=== PATIENT | male | born 1960 | race Caucasian/White ===

== ENCOUNTER 2020-11-20 16:10 | Emergency (ER) | payer OTHER ==
[2020-11-20 16:28] VITALS: BMI 27.1
[2020-11-20] MEDS ORDERED: SODIUM CHLORIDE 500 ML IV STA (17:52)
[2020-11-20 23:20] LABS: EPI CELLS 3 /uL (0-25.1); HYALINE CASTS 1 /uL (0-3.1); URINE APPEARANCE CLEAR; URINE BACTERIA 11 /uL (0-1359); URINE BILIRUBIN NEGATIVE (NEGATIVE); URINE COLOR YELLOW; URINE GLUCOSE (UA) NEGATIVE (NEGATIVE); URINE KETONE NEGATIVE (NEGATIVE); URINE LEUK ESTERASE NEGATIVE (NEGATIVE); URINE NITRITE NEGATIVE (NEGATIVE); URINE PROTEIN 1+ (NEGATIVE); URINE RBC 8 /uL (0-23.9); URINE UROBILINOGEN 0.2 mg/dL (0.2-1.0); URINE WBC 2 /uL (0-25.8)
[2020-11-21 06:43] VITALS: TEMP 98.7
[2020-11-21 09:57] VITALS: BP 108/68; PULSE 95
== END 2020-11-21 11:45 | disposition home or self-care (01) ==
LOC: JER 16:10
PROC: 3E0337Z Introduction of Electrolytic and Water Balance Substance into Peripheral Vein, Percutaneous Approach (ICD-10-PCS; principal; 2020-11-20)
DX: K59.00 Constipation, unspecified (principal)
CPT/HCPCS: 74018-TC-FY; 81003; 99284-25

== ENCOUNTER 2021-07-16 23:17 | Inpatient (IN) | payer OTHER ==
[2021-07-16] MEDS ORDERED: DEXAMETHASONE SOD PHOSPHATE 10 MG/1 ML VIAL IVPUSH ONE (23:32)
[2021-07-16] MEDS ORDERED: DEXAMETHASONE SOD PHOSPHATE 10 MG/1 ML VIAL ONE (23:36)
[2021-07-16 23:47] LABS: BASO % 1.1 % (0-2.0); EOS % 1.9 % (0-4.5); HEMATOCRIT 29.7 % (35.4-49); LYMPH % 7.4 % (8-40); MCH 27.6 pg (25.7-33.7); MCHC 30.3 g/dl (32.0-35.9); MEAN CELL VOLUME 91.1 fl (80-96); MEAN PLT VOLUME 7.6 fl (7.5-11.1); MONO % 9.6 % (3.8-10.2); PLATELET COUNT 221 10^3/uL (134-434); RBC 3.26 M/mm3 (4.00-5.60); RDW 14.9 % (11.9-15.9); VENOUS BASE EXCESS 8.6 mmol/L (-2-2); VENOUS O2 SATURATION 65.1 % (70-80); VENOUS PCO2 83.3 mmHg (38-52); VENOUS PH 7.272 (7.310-7.410); WHITE BLOOD COUNT 3.1 K/mm3 (4.0-10.0)
[2021-07-16 23:55] LABS: INR 0.94 (0.83-1.09); PROTHROMBIN TIME (PATIENT) 10.8 SEC (9.7-13.0)
[2021-07-16 23:58] LABS: ACTIVATED PTT 36.1 SECONDS (25.2-36.5)
[2021-07-17 00:11] LABS: ALBUMIN 3.4 g/dl (3.4-5.0); BLOOD UREA NITROGEN 16.2 mg/dL (7-18)
[2021-07-17 00:14] LABS: BILIRUBIN,DIRECT 0.1 mg/dL (0.0-0.2); CREATININE 0.3 mg/dL (0.55-1.3)
[2021-07-17 00:15] LABS: TOT PROT 7.2 g/dl (6.4-8.2)
[2021-07-17 00:34] LABS: BILIRUBIN,TOTAL 0.2 mg/dL (0.2-1)
[2021-07-17 02:52] LABS: ARTERIAL BLD GAS O2 SATURATION 99.3 % (95-98); ARTERIAL BLOOD GAS BASE EXCESS 21.6 mmol/L (-2-2); ARTERIAL BLOOD GAS PO2 241.3 mmHg (80-100); ARTERIAL BLOOD GAS pH 7.207 (7.350-7.450)
[2021-07-17 02:56] LABS: ALLENS TEST POSITIVE
[2021-07-17] MEDS ORDERED: ACETAMINOPHEN 650 MG/20.3 ML ORAL SOLUTION (CUPS) PO PRN (04:36)
[2021-07-17] MEDS ORDERED: POLYETHYLENE GLYCOL (HEALTHYLAX) 3350 17 GM PACKET PO PRN (04:36)
[2021-07-17] MEDS ORDERED: ALBUTEROL SO4 HFA INHALER IH PRN (04:36)
[2021-07-17] MEDS ORDERED: LACTATED RINGERS SOLUTION 1000 ML INFUS.BAG IV ONE ×3 (05:03→11:44)
[2021-07-17 06:50] LABS: ARTERIAL BLD GAS O2 SATURATION 99.5 % (95-98); ARTERIAL BLOOD GAS PO2 298.9 mmHg (80-100)
[2021-07-17 06:51] LABS: ALLENS TEST POSITIVE; VENT MODE S/T; VENT RATE 18
[2021-07-17 06:53] LABS: ARTERIAL BLOOD GAS pH 7.165 (7.350-7.450)
[2021-07-17] MEDS ORDERED: RAPID SEQUENCE INTUBATION KIT NR ONE (07:02)
[2021-07-17 08:20] LABS: ARTERIAL BLOOD GAS PO2 101.1 mmHg (80-100); ARTERIAL BLOOD GAS pH 7.201 (7.350-7.450)
[2021-07-17 08:21] LABS: ARTERIAL BLD GAS O2 SATURATION 95.4 % (95-98); ARTERIAL BLOOD GAS BASE EXCESS 17.8 mmol/L (-2-2)
[2021-07-17 09:01] LABS: CALCIUM 9.4 mg/dL (8.5-10.1)
[2021-07-17 09:02] LABS: CREATININE 0.2 mg/dL (0.55-1.3); MAGNESIUM 2.4 mg/dL (1.8-2.4)
[2021-07-17] MEDS ORDERED: guaiFENesin 200 MG/10 ML 10 ML UNIT-DOSE CUPS PO PRN (09:05)
[2021-07-17] MEDS ORDERED: ETOMIDATE 20 MG/10 ML AMPUL IVPUSH ONE (09:23)
[2021-07-17] MEDS ORDERED: MIDAZOLAM IN 0.9 % SOD.CHLORID 1 MG/1 ML PLAST..BAG ONE (09:41)
[2021-07-17] MEDS: MIDAZOLAM IN 0.9 % SOD.CHLORID 100 MG/100 ML PLAST..BAG IVPB SCH ×2 (09:43→21:46)
[2021-07-17] MEDS ORDERED: FUROSEMIDE 20 MG TABLET (FP) PO SCH (10:00)
[2021-07-17] MEDS ORDERED: FENTANYL NS IVPB 500 MCG/100 ML BAG IVPB ONE (10:33)
[2021-07-17] MEDS: FENTANYL NS IVPB 500 MCG/100 ML BAG IVPB SCH ×2 (10:35→18:00)
[2021-07-17] MEDS: FUROSEMIDE 40 MG/4 ML INJECTABLE VIAL IVPUSH SCH (12:28)
[2021-07-17] MEDS ORDERED: NOREPINEPHRINE BITARTRATE 16,000 MCG in SODIUM CHLORIDE 484 ML IV SCH (12:30)
[2021-07-17] MEDS: EPINEPHrine 1:1,000 4,000 MCG in DEXTROSE 5%-WATER - 996 ML IV SCH (14:00)
[2021-07-17] MEDS ORDERED: DEXAMETHASONE SOD PHOSPHATE 10 MG/1 ML VIAL IM SCH (14:00)
[2021-07-17] MEDS ORDERED: VASOPRESSIN 40 UNITS/100 ML BAG IV SCH ×3 (14:15→15:15)
[2021-07-17] MEDS ORDERED: EPINEPHrine 1:1,000 4,000 MCG in DEXTROSE 5%-WATER - 996 ML IV SCH ×2 (14:15→14:59)
[2021-07-17] MEDS: NOREPINEPHRINE BITARTRATE 16,000 MCG in SODIUM CHLORIDE 484 ML IV SCH ×2 (15:00→21:47)
[2021-07-17 15:15] LABS: HEMATOCRIT 28.7 % (35.4-49); HEMOGLOBIN 8.4 GM/dL (11.7-16.9); MCHC 29.2 g/dl (32.0-35.9); MEAN CELL VOLUME 92.4 fl (80-96); MEAN PLT VOLUME 8.5 fl (7.5-11.1); PLATELET COUNT 305 10^3/uL (134-434); RBC 3.11 M/mm3 (4.00-5.60); RDW 15.2 % (11.9-15.9); WHITE BLOOD COUNT 10.2 K/mm3 (4.0-10.0)
[2021-07-17 15:33] LABS: BLOOD UREA NITROGEN 18.1 mg/dL (7-18); CALCIUM 9.6 mg/dL (8.5-10.1)
[2021-07-17 15:36] LABS: CREATININE 0.6 mg/dL (0.55-1.3)
[2021-07-17 15:38] LABS: BILIRUBIN,TOTAL 0.3 mg/dL (0.2-1); TOT PROT 6.6 g/dl (6.4-8.2)
[2021-07-17 15:41] LABS: VENOUS O2 SATURATION 42.5 % (70-80); VENOUS PCO2 48.7 mmHg (38-52); VENOUS PH 7.46 (7.310-7.410)
[2021-07-17 16:05] LABS: ANISOCYTOSIS 1+; MACROCYTOSIS 1+; OVALOCYTE 1+; PLATELET ESTIMATE NORMAL
[2021-07-17 16:05] LABS: ARTERIAL BLD GAS O2 SATURATION 87.8 % (95-98); ARTERIAL BLOOD GAS PO2 48.4 mmHg (80-100); ARTERIAL BLOOD GAS pH 7.514 (7.350-7.450)
[2021-07-17 16:11] LABS: ALLENS TEST POSITIVE
[2021-07-17 16:12] LABS: VENT MODE A/C; VENT RATE 20
[2021-07-17] MEDS ORDERED: FLUDROCORTISONE ACETATE 0.1 MG TABLET (FP) PO SCH (18:45)
[2021-07-17] MEDS ORDERED: fentaNYL CITRATE 250 MCG/5 ML VIAL ONE (18:57)
[2021-07-17] MEDS ORDERED: fentaNYL CITRATE 250 MCG/5 ML VIAL IVPUSH SCH (19:45)
[2021-07-17] MEDS: MELATONIN 5 MG TABLETS PO SCH (21:47)
[2021-07-17] MEDS: ASCORBIC ACID 500 MG TABLET (FP) PO SCH ×2 (21:47→21:59)
[2021-07-17] MEDS: APIXABAN 5 MG TABLET PO SCH ×2 (21:48→21:58)
[2021-07-17] MEDS: HYDROCORTISONE SOD SUCCINATE 100 MG/2 ML VIAL IVPUSH SCH (21:52)
[2021-07-17] MEDS: ISONIAZID 300 MG TABLET (FP) PO SCH (21:58)
[2021-07-17] MEDS: LEVOTHYROXINE NA 125 MCG TABLET (FP) PO SCH (21:58)
[2021-07-17] MEDS: GEMFIBROZIL 600 MG TABLET (FP) PO SCH (21:58)
[2021-07-17] MEDS: ZINC SULFATE 220 MG CAPSULE (FP) PO SCH (21:58)
[2021-07-17] MEDS: FERROUS SO4 325 MG TABLET (FP) PO SCH (21:58)
[2021-07-17] MEDS: ESCITALOPRAM OXALATE 10 MG TABLET PO SCH (21:58)
[2021-07-17] MEDS: CALCIUM 500MG/VIT-D 200 UNITS COMBO TABLET (FP) PO SCH (21:58)
[2021-07-17] MEDS: ATOVAQUONE 750 MG/5 ML (UNIT-DOSE PACKAGING) PO SCH (21:59)
[2021-07-17] MEDS: CHOLECALCIFEROL (VIT D3) 1,000 UNIT (25 MCG) TABLET PO SCH (21:59)
[2021-07-17] MEDS: MYCOPHENOLATE MOFETIL 500 MG TABLET PO SCH (21:59)
[2021-07-17] MEDS: TENOFOVIR DISOPROXIL FUMARATE 300 MG TABLET PO SCH (21:59)
[2021-07-17] MEDS ORDERED: PT OWN MED DRAWER 7, Y5N ONE (22:25)
[2021-07-18] MEDS: HYDROCORTISONE SOD SUCCINATE 100 MG/2 ML VIAL IVPUSH SCH ×2 (02:43→08:19)
[2021-07-18] MEDS: FENTANYL NS IVPB 500 MCG/100 ML BAG IVPB SCH (02:58)
[2021-07-18] MEDS: EPINEPHrine 1:1,000 4,000 MCG in DEXTROSE 5%-WATER - 996 ML IV SCH (03:00)
[2021-07-18] MEDS: NOREPINEPHRINE BITARTRATE 16,000 MCG in SODIUM CHLORIDE 484 ML IV SCH ×2 (04:00→17:04)
[2021-07-18] MEDS: GEMFIBROZIL 600 MG TABLET (FP) PO SCH ×2 (06:48→16:21)
[2021-07-18] MEDS: LEVOTHYROXINE NA 125 MCG TABLET (FP) PO SCH (06:48)
[2021-07-18 07:20] LABS: ARTERIAL BLD GAS O2 SATURATION 99.8 % (95-98); ARTERIAL BLOOD GAS BASE EXCESS 12.8 mmol/L (-2-2); ARTERIAL BLOOD GAS PO2 284.9 mmHg (80-100); ARTERIAL BLOOD GAS pH 7.629 (7.350-7.450)
[2021-07-18 07:22] LABS: BASO % 0.2 % (0-2.0); HEMATOCRIT 21.7 % (35.4-49); LYMPH % 5.1 % (8-40); MCH 27.2 pg (25.7-33.7); MCHC 31.6 g/dl (32.0-35.9); MEAN CELL VOLUME 86.2 fl (80-96); MEAN PLT VOLUME 8.3 fl (7.5-11.1); MONO % 5.6 % (3.8-10.2); NEUT % 89.1 % (42.8-82.8); PLATELET COUNT 241 10^3/uL (134-434); RBC 2.52 M/mm3 (4.00-5.60); RDW 14.3 % (11.9-15.9); WHITE BLOOD COUNT 9.8 K/mm3 (4.0-10.0)
[2021-07-18 07:24] LABS: HEMOGLOBIN 6.9 GM/dL (11.7-16.9)
[2021-07-18 07:39] LABS: VENT MODE A/C; VENT RATE 20
[2021-07-18] MEDS ORDERED: PT OWN MED DRAWER 7, Y5N ONE ×4 (08:02→22:48)
[2021-07-18] MEDS: ATOVAQUONE 750 MG/5 ML (UNIT-DOSE PACKAGING) PO SCH (08:19)
[2021-07-18 08:32] LABS: CO2 31 mmol/L (21-32); GLUCOSE,RANDOM 195 mg/dL (74-106); MAGNESIUM 1.5 mg/dL (1.8-2.4)
[2021-07-18 08:33] LABS: BLOOD UREA NITROGEN 20.5 mg/dL (7-18)
[2021-07-18 08:35] LABS: CREATININE 0.5 mg/dL (0.55-1.3); SGOT/AST 35 U/L (15-37)
[2021-07-18 08:36] LABS: SGPT/ALT 23 U/L (13-61)
[2021-07-18 08:37] LABS: BILIRUBIN,TOTAL 0.2 mg/dL (0.2-1); TOT PROT 5.1 g/dl (6.4-8.2)
[2021-07-18 08:38] LABS: ALK PHOS 55 U/L (45-117)
[2021-07-18 08:54] LABS: CHLORIDE 94 mmol/L (98-107); SODIUM 132 mmol/L (136-145)
[2021-07-18 08:57] LABS: ALBUMIN 2.3 g/dl (3.4-5.0); ANION GAP 6 MMOL/L (8-16); CALCIUM 7.8 mg/dL (8.5-10.1)
[2021-07-18] MEDS ORDERED: SODIUM PHOSPHATE - 0 MM in SODIUM CHLORIDE 250 ML IVPB ONE (09:03)
[2021-07-18] MEDS: ESCITALOPRAM OXALATE 10 MG TABLET PO SCH (09:28)
[2021-07-18] MEDS: APIXABAN 5 MG TABLET PO SCH ×2 (09:28→22:58)
[2021-07-18] MEDS: CHOLECALCIFEROL (VIT D3) 1,000 UNIT (25 MCG) TABLET PO SCH (09:31)
[2021-07-18] MEDS: FUROSEMIDE 40 MG/4 ML INJECTABLE VIAL IVPUSH SCH (09:31)
[2021-07-18] MEDS: ZINC SULFATE 220 MG CAPSULE (FP) PO SCH (09:31)
[2021-07-18] MEDS: FERROUS SO4 325 MG TABLET (FP) PO SCH (09:31)
[2021-07-18] MEDS: CALCIUM 500MG/VIT-D 200 UNITS COMBO TABLET (FP) PO SCH (09:32)
[2021-07-18] MEDS: ISONIAZID 300 MG TABLET (FP) PO SCH (09:32)
[2021-07-18] MEDS: TENOFOVIR DISOPROXIL FUMARATE 300 MG TABLET PO SCH (09:32)
[2021-07-18] MEDS: MYCOPHENOLATE MOFETIL 500 MG TABLET PO SCH ×3 (09:32→23:04)
[2021-07-18] MEDS: ASCORBIC ACID 500 MG TABLET (FP) PO SCH ×2 (09:32→22:58)
[2021-07-18] MEDS ORDERED: LACTATED RINGERS SOLUTION 1000 ML INFUS.BAG IV ONE (09:41)
[2021-07-18] MEDS ORDERED: SODIUM PHOSPHATE - 30 MM in SODIUM CHLORIDE 250 ML IVPB ONE (10:00)
[2021-07-18 11:40] LABS: ALLENS TEST POSITIVE; ARTERIAL BLD GAS O2 SATURATION 99.2 % (95-98); ARTERIAL BLOOD GAS BASE EXCESS 9.4 mmol/L (-2-2); ARTERIAL BLOOD GAS PO2 148.2 mmHg (80-100); ARTERIAL BLOOD GAS pH 7.561 (7.350-7.450)
[2021-07-18 11:41] LABS: VENT MODE A/C; VENT RATE 16
[2021-07-18] MEDS ORDERED: RAPID SEQUENCE INTUBATION KIT NR ONE (12:17)
[2021-07-18] MEDS: MIDAZOLAM IN 0.9 % SOD.CHLORID 100 MG/100 ML PLAST..BAG IVPB SCH ×2 (14:06→23:00)
[2021-07-18 16:10] LABS: ARTERIAL BLD GAS O2 SATURATION 99.2 % (95-98); ARTERIAL BLOOD GAS BASE EXCESS 7.5 mmol/L (-2-2); ARTERIAL BLOOD GAS pH 7.519 (7.350-7.450)
[2021-07-18 16:14] LABS: ALLENS TEST POSITIVE
[2021-07-18 16:15] LABS: VENT MODE A/C; VENT RATE 20
[2021-07-18] MEDS ORDERED: FENTANYL NS IVPB 500 MCG/100 ML BAG IVPB ONE (17:55)
[2021-07-18] MEDS ORDERED: SODIUM CHLORIDE IVPB SCH ×2 (18:00→22:43)
[2021-07-18] MEDS ORDERED: FENTANYL IVPB SCH ×2 (18:00→22:43)
[2021-07-18 19:02] LABS: BASO % 0.2 % (0-2.0); EOS % 0.1 % (0-4.5); HEMATOCRIT 29.1 % (35.4-49); HEMOGLOBIN 9.6 GM/dL (11.7-16.9); LYMPH % 5.3 % (8-40); MCH 28.3 pg (25.7-33.7); MEAN CELL VOLUME 85.9 fl (80-96); MONO % 5.2 % (3.8-10.2); NEUT % 89.2 % (42.8-82.8); PLATELET COUNT 200 10^3/uL (134-434); RBC 3.39 M/mm3 (4.00-5.60); RDW 15.5 % (11.9-15.9); WHITE BLOOD COUNT 11.9 K/mm3 (4.0-10.0)
[2021-07-18 19:13] LABS: INR 1.24 (0.83-1.09); PROTHROMBIN TIME (PATIENT) 14.3 SEC (9.7-13.0)
[2021-07-18 19:23] LABS: CALCIUM 8.3 mg/dL (8.5-10.1)
[2021-07-18 19:24] LABS: ALBUMIN 2.5 g/dl (3.4-5.0); BLOOD UREA NITROGEN 22.5 mg/dL (7-18); MAGNESIUM 1.8 mg/dL (1.8-2.4)
[2021-07-18 19:27] LABS: CREATININE 0.4 mg/dL (0.55-1.3); PHOSPHOROUS 4.4 mg/dL (2.5-4.9)
[2021-07-18 19:29] LABS: BILIRUBIN,TOTAL 0.8 mg/dL (0.2-1); TOT PROT 5.4 g/dl (6.4-8.2)
[2021-07-18] MEDS: MELATONIN 5 MG TABLETS PO SCH (22:58)
[2021-07-19] MEDS: FENTANYL NS IVPB 500 MCG/100 ML BAG IVPB SCH ×5 (02:11→20:10)
[2021-07-19 06:34] LABS: ARTERIAL BLD GAS O2 SATURATION 90.8 % (95-98); ARTERIAL BLOOD GAS BASE EXCESS 10.9 mmol/L (-2-2); ARTERIAL BLOOD GAS pH 7.498 (7.350-7.450)
[2021-07-19 06:52] LABS: VENT MODE A/C; VENT RATE 16
[2021-07-19] MEDS: LEVOTHYROXINE NA 125 MCG TABLET (FP) PO SCH (06:54)
[2021-07-19] MEDS: GEMFIBROZIL 600 MG TABLET (FP) PO SCH ×2 (06:54→17:53)
[2021-07-19 07:06] LABS: HEMATOCRIT 30.4 % (35.4-49); HEMOGLOBIN 9.8 GM/dL (11.7-16.9); MCH 27.8 pg (25.7-33.7); MCHC 32.4 g/dl (32.0-35.9); MEAN CELL VOLUME 85.9 fl (80-96); MEAN PLT VOLUME 8.9 fl (7.5-11.1); PLATELET COUNT 216 10^3/uL (134-434); RBC 3.53 M/mm3 (4.00-5.60); RDW 15.7 % (11.9-15.9)
[2021-07-19 07:17] LABS: BLOOD UREA NITROGEN 28.7 mg/dL (7-18)
[2021-07-19 07:18] LABS: ALBUMIN 2.3 g/dl (3.4-5.0); MAGNESIUM 1.4 mg/dL (1.8-2.4)
[2021-07-19 07:20] LABS: PHOSPHOROUS 3.6 mg/dL (2.5-4.9)
[2021-07-19 07:21] LABS: CREATININE 0.4 mg/dL (0.55-1.3)
[2021-07-19 07:22] LABS: BILIRUBIN,TOTAL 0.4 mg/dL (0.2-1); TOT PROT 5.2 g/dl (6.4-8.2)
[2021-07-19 08:37] LABS: ANISOCYTOSIS 1+; MACROCYTOSIS 0; OVALOCYTE 1+; PLATELET ESTIMATE NORMAL; TOXIC GRANULATION 2+
[2021-07-19] MEDS: ATOVAQUONE 750 MG/5 ML (UNIT-DOSE PACKAGING) PO SCH (08:55)
[2021-07-19] MEDS: MIDAZOLAM IN 0.9 % SOD.CHLORID 100 MG/100 ML PLAST..BAG IVPB SCH ×3 (09:04→17:53)
[2021-07-19] MEDS: TENOFOVIR DISOPROXIL FUMARATE 300 MG TABLET PO SCH (10:55)
[2021-07-19] MEDS: ISONIAZID 300 MG TABLET (FP) PO SCH (10:55)
[2021-07-19] MEDS: CALCIUM 500MG/VIT-D 200 UNITS COMBO TABLET (FP) PO SCH (10:55)
[2021-07-19] MEDS: MYCOPHENOLATE MOFETIL 500 MG TABLET PO SCH ×2 (10:55→22:59)
[2021-07-19] MEDS: ZINC SULFATE 220 MG CAPSULE (FP) PO SCH (11:37)
[2021-07-19] MEDS: ASCORBIC ACID 500 MG TABLET (FP) PO SCH ×2 (11:37→23:57)
[2021-07-19] MEDS: APIXABAN 5 MG TABLET PO SCH ×2 (11:37→23:00)
[2021-07-19] MEDS: ESCITALOPRAM OXALATE 10 MG TABLET PO SCH (11:37)
[2021-07-19] MEDS: FERROUS SO4 325 MG TABLET (FP) PO SCH (11:37)
[2021-07-19] MEDS: CHOLECALCIFEROL (VIT D3) 1,000 UNIT (25 MCG) TABLET PO SCH (11:37)
[2021-07-19 11:53] LABS: ARTERIAL BLD GAS O2 SATURATION 95.2 % (95-98); ARTERIAL BLOOD GAS BASE EXCESS 5.4 mmol/L (-2-2); ARTERIAL BLOOD GAS PO2 70.5 mmHg (80-100); ARTERIAL BLOOD GAS pH 7.477 (7.350-7.450)
[2021-07-19 11:55] LABS: VENT MODE AC
[2021-07-19 11:56] LABS: VENT RATE 16
[2021-07-19] MEDS ORDERED: DEXAMETHASONE SOD PHOSPHATE 10 MG/1 ML VIAL IVPUSH ONE (13:44)
[2021-07-19] MEDS ORDERED: PROPOFOL 1,000,000 MCG/100 ML VIAL IVPB SCH (14:30)
[2021-07-19] MEDS ORDERED: DEXTROSE 5%-WATER - 50 ML IVPB ONE ×2 (15:35→17:55)
[2021-07-19] MEDS ORDERED: PIPERACILLIN/TAZOBACTAM 3.375 GM VIAL IVPB ONE ×2 (15:35→17:55)
[2021-07-19] MEDS: PIPERACILLIN/TAZOB 3.375 GM 3.375 GM in DEXTROSE 5%-WATER - 50 ML IVPB SCH ×2 (16:00→17:53)
[2021-07-19] MEDS: NOREPINEPHRINE BITARTRATE 16,000 MCG in SODIUM CHLORIDE 484 ML IV SCH (17:53)
[2021-07-19] MEDS ORDERED: SODIUM CHLORIDE 500 ML IV STA (18:47)
[2021-07-19] MEDS ORDERED: VASOPRESSIN 20 UNITS/ML VIAL IV ONE (18:56)
[2021-07-19] MEDS ORDERED: VASOPRESSIN 40 UNITS/100 ML BAG IV SCH (19:00)
[2021-07-19] MEDS: VASOPRESSIN 40 UNITS/100 ML BAG IV SCH (19:01)
[2021-07-19 19:52] LABS: BASO % 0.1 % (0-2.0); EOS % 0.1 % (0-4.5); HEMATOCRIT 20.7 % (35.4-49); HEMOGLOBIN 6.5 GM/dL (11.7-16.9); LYMPH % 8.9 % (8-40); MCH 27.8 pg (25.7-33.7); MCHC 31.7 g/dl (32.0-35.9); MEAN CELL VOLUME 87.8 fl (80-96); MEAN PLT VOLUME 8.5 fl (7.5-11.1); MONO % 2.5 % (3.8-10.2); NEUT % 88.4 % (42.8-82.8); PLATELET COUNT 219 10^3/uL (134-434); RBC 2.35 M/mm3 (4.00-5.60); WHITE BLOOD COUNT 15.9 K/mm3 (4.0-10.0)
[2021-07-19] MEDS: MELATONIN 5 MG TABLETS PO SCH (23:00)
[2021-07-19] MEDS ORDERED: PT OWN MED DRAWER 7, Y5N ONE (23:22)
[2021-07-20] MEDS ORDERED: PIPERACILLIN/TAZOBACTAM 3.375 GM VIAL IVPB ONE ×4 (00:13→20:09)
[2021-07-20] MEDS ORDERED: DEXTROSE 5%-WATER - 50 ML IVPB ONE ×4 (00:13→20:09)
[2021-07-20] MEDS ORDERED: PT OWN MED DRAWER 7, Y5N ONE ×5 (00:54→20:09)
[2021-07-20] MEDS: VASOPRESSIN 40 UNITS/100 ML BAG IV SCH ×3 (00:57→20:20)
[2021-07-20] MEDS: PHENYLEPHRINE NS PREMIX 50,000 MCG/500 ML BAG IVPB SCH ×4 (01:15→17:24)
[2021-07-20] MEDS: PIPERACILLIN/TAZOB 3.375 GM 3.375 GM in DEXTROSE 5%-WATER - 50 ML IVPB SCH ×3 (01:42→17:28)
[2021-07-20] MEDS: FENTANYL NS IVPB 500 MCG/100 ML BAG IVPB SCH ×4 (02:05→21:00)
[2021-07-20] MEDS ORDERED: SODIUM CHLORIDE 1,000 ML IV STA (04:05)
[2021-07-20] MEDS: MIDAZOLAM IN 0.9 % SOD.CHLORID 100 MG/100 ML PLAST..BAG IVPB SCH ×3 (05:34→20:22)
[2021-07-20] MEDS: LEVOTHYROXINE NA 125 MCG TABLET (FP) PO SCH (06:59)
[2021-07-20] MEDS: NOREPINEPHRINE BITARTRATE 16,000 MCG in SODIUM CHLORIDE 484 ML IV SCH ×3 (08:00→20:19)
[2021-07-20] MEDS: GEMFIBROZIL 600 MG TABLET (FP) PO SCH ×2 (08:25→17:28)
[2021-07-20] MEDS: ATOVAQUONE 750 MG/5 ML (UNIT-DOSE PACKAGING) PO SCH (08:55)
[2021-07-20] MEDS ORDERED: NOREPINEPHRINE BITARTRATE 4 MG/4 ML ML IV ONE (09:40)
[2021-07-20] MEDS: ZINC SULFATE 220 MG CAPSULE (FP) PO SCH (10:05)
[2021-07-20] MEDS: ASCORBIC ACID 500 MG TABLET (FP) PO SCH ×2 (10:05→21:55)
[2021-07-20] MEDS: CHOLECALCIFEROL (VIT D3) 1,000 UNIT (25 MCG) TABLET PO SCH (10:05)
[2021-07-20] MEDS: ESCITALOPRAM OXALATE 10 MG TABLET PO SCH (10:06)
[2021-07-20] MEDS: MYCOPHENOLATE MOFETIL 500 MG TABLET PO SCH (10:06)
[2021-07-20] MEDS: CALCIUM 500MG/VIT-D 200 UNITS COMBO TABLET (FP) PO SCH (10:06)
[2021-07-20] MEDS: FERROUS SO4 325 MG TABLET (FP) PO SCH (10:06)
[2021-07-20] MEDS: ISONIAZID 300 MG TABLET (FP) PO SCH (10:06)
[2021-07-20] MEDS: TENOFOVIR DISOPROXIL FUMARATE 300 MG TABLET PO SCH (10:08)
[2021-07-20] MEDS: DEXAMETHASONE SOD PHOSPHATE 10 MG/1 ML VIAL IVPUSH SCH (10:11)
[2021-07-20] MEDS ORDERED: FLUDROCORTISONE ACETATE 0.1 MG TABLET (FP) NGT SCH (12:30)
[2021-07-20 12:35] LABS: HEMATOCRIT 27.9 % (35.4-49); HEMOGLOBIN 9.6 GM/dL (11.7-16.9); MCH 29.6 pg (25.7-33.7); MCHC 34.3 g/dl (32.0-35.9); MEAN CELL VOLUME 86.3 fl (80-96); MEAN PLT VOLUME 9.7 fl (7.5-11.1); PLATELET COUNT 189 10^3/uL (134-434); RBC 3.24 M/mm3 (4.00-5.60); RDW 14.6 % (11.9-15.9); WHITE BLOOD COUNT 18.1 K/mm3 (4.0-10.0)
[2021-07-20 12:59] LABS: BLOOD UREA NITROGEN 43.2 mg/dL (7-18); MAGNESIUM 1.7 mg/dL (1.8-2.4)
[2021-07-20 13:02] LABS: CREATININE 0.8 mg/dL (0.55-1.3); PHOSPHOROUS 6.4 mg/dL (2.5-4.9)
[2021-07-20 13:03] LABS: BILIRUBIN,TOTAL 0.8 mg/dL (0.2-1)
[2021-07-20 13:04] LABS: TOT PROT 3.6 g/dl (6.4-8.2)
[2021-07-20 13:38] LABS: ANISOCYTOSIS 0; HELMET CELLS 0; HOWELL-JOLLY BODIES 0; MACROCYTOSIS 0; OVALOCYTE 0; PLATELET ESTIMATE NORMAL; ROULEAU 0; SICKELED CELLS 0; TARGET CELLS 0; TEAR DROP CELLS 0; TOXIC GRANULATION 0
[2021-07-20 18:33] LABS: ALBUMIN 1.6 g/dl (3.4-5.0)
[2021-07-20] MEDS: MELATONIN 5 MG TABLETS PO SCH (21:56)
[2021-07-21] MEDS ORDERED: PHENYLEPHRINE HCL 50,000 MCG in SODIUM CHLORIDE 50,000 MCG/500 ML INFUS.BAG IV SCH (00:20)
[2021-07-21] MEDS: PIPERACILLIN/TAZOB 3.375 GM 3.375 GM in DEXTROSE 5%-WATER - 50 ML IVPB SCH ×3 (02:48→18:29)
[2021-07-21] MEDS: LEVOTHYROXINE NA 125 MCG TABLET (FP) PO SCH (06:03)
[2021-07-21] MEDS: FENTANYL NS IVPB 500 MCG/100 ML BAG IVPB SCH ×2 (06:45→14:30)
[2021-07-21 07:34] LABS: MCH 29.2 pg (25.7-33.7); MCHC 33.7 g/dl (32.0-35.9); MEAN CELL VOLUME 86.9 fl (80-96); MEAN PLT VOLUME 8.2 fl (7.5-11.1); PLATELET COUNT 203 10^3/uL (134-434); RDW 14.5 % (11.9-15.9); WHITE BLOOD COUNT 12.7 K/mm3 (4.0-10.0)
[2021-07-21 07:49] LABS: CHLORIDE 105 mmol/L (98-107); HEMOGLOBIN 6.7 GM/dL (11.7-16.9); SODIUM 139 mmol/L (136-145)
[2021-07-21 07:51] LABS: ANION GAP 11 MMOL/L (8-16); BLOOD UREA NITROGEN 54.4 mg/dL (7-18); CO2 23 mmol/L (21-32); GLUCOSE,RANDOM 176 mg/dL (74-106); MAGNESIUM 1.6 mg/dL (1.8-2.4)
[2021-07-21 07:52] LABS: ALBUMIN 1.5 g/dl (3.4-5.0)
[2021-07-21 07:54] LABS: PHOSPHOROUS 5.6 mg/dL (2.5-4.9)
[2021-07-21 07:55] LABS: CREATININE 0.9 mg/dL (0.55-1.3)
[2021-07-21 07:56] LABS: BILIRUBIN,TOTAL 0.4 mg/dL (0.2-1); TOT PROT 3.5 g/dl (6.4-8.2)
[2021-07-21 07:57] LABS: ALK PHOS 71 U/L (45-117)
[2021-07-21] MEDS ORDERED: SODIUM ZIRCONIUM CYCLOSILICATE (LOKELMA) 5 GM PACKET PO ONE (09:01)
[2021-07-21] MEDS ORDERED: MAGNESIUM SULF 50% (8.12 MEQ/2 ML-1 GM VIAL) IVPB ONE (09:01)
[2021-07-21] MEDS ORDERED: DOCUSATE NA 100 MG/10 ML UNIT-DOSE CUPS NGT PRN (09:02)
[2021-07-21] MEDS ORDERED: POLYETHYLENE GLYCOL (HEALTHYLAX) 3350 17 GM PACKET NGT PRN (09:03)
[2021-07-21 09:06] LABS: CALCIUM 6.4 mg/dL (8.5-10.1); SGOT/AST 1485 U/L (15-37); SGPT/ALT 1072 U/L (13-61)
[2021-07-21] MEDS ORDERED: SODIUM ZIRCONIUM CYCLOSILICATE (LOKELMA) 5 GM PACKET NGT ONE (09:30)
[2021-07-21] MEDS ORDERED: PIPERACILLIN/TAZOBACTAM 3.375 GM VIAL IVPB ONE ×2 (10:25→15:35)
[2021-07-21] MEDS ORDERED: DEXTROSE 5%-WATER - 50 ML IVPB ONE ×2 (10:26→15:36)
[2021-07-21] MEDS ORDERED: MAGNESIUM 2GM/50ML STERILE WATER IVPB IVPB ONE (10:30)
[2021-07-21] MEDS: ATOVAQUONE 750 MG/5 ML (UNIT-DOSE PACKAGING) PO SCH (10:48)
[2021-07-21] MEDS: DEXAMETHASONE SOD PHOSPHATE 10 MG/1 ML VIAL IVPUSH SCH (10:49)
[2021-07-21] MEDS: FLUDROCORTISONE ACETATE 0.1 MG TABLET (FP) NGT SCH (10:51)
[2021-07-21] MEDS: FERROUS SO4 325 MG TABLET (FP) PO SCH (10:51)
[2021-07-21] MEDS: ISONIAZID 300 MG TABLET (FP) PO SCH (10:52)
[2021-07-21] MEDS: ESCITALOPRAM OXALATE 10 MG TABLET PO SCH (10:52)
[2021-07-21] MEDS: ZINC SULFATE 220 MG CAPSULE (FP) PO SCH (10:53)
[2021-07-21] MEDS: TENOFOVIR DISOPROXIL FUMARATE 300 MG TABLET PO SCH (10:53)
[2021-07-21] MEDS: CALCIUM 500MG/VIT-D 200 UNITS COMBO TABLET (FP) PO SCH (10:53)
[2021-07-21] MEDS: CHOLECALCIFEROL (VIT D3) 1,000 UNIT (25 MCG) TABLET PO SCH (10:54)
[2021-07-21] MEDS: ASCORBIC ACID 500 MG TABLET (FP) PO SCH (10:54)
[2021-07-21 11:18] LABS: ANISOCYTOSIS 1+; MACROCYTOSIS 0; PLATELET ESTIMATE NORMAL
[2021-07-21] MEDS ORDERED: FENTANYL NS IVPB 500 MCG/100 ML BAG IVPB ONE (14:26)
[2021-07-21] MEDS: MIDAZOLAM IN 0.9 % SOD.CHLORID 100 MG/100 ML PLAST..BAG IVPB SCH (15:00)
[2021-07-21] MEDS ORDERED: ACETAMINOPHEN 650 MG/20.3 ML ORAL SOLUTION (CUPS) GT PRN (15:10)
[2021-07-21] MEDS ORDERED: guaiFENesin 200 MG/10 ML 10 ML UNIT-DOSE CUPS GT PRN (15:14)
[2021-07-21] MEDS: GEMFIBROZIL 600 MG TABLET (FP) PO SCH (15:25)
[2021-07-21] MEDS: NOREPINEPHRINE BITARTRATE 16,000 MCG in SODIUM CHLORIDE 484 ML IV SCH (15:45)
[2021-07-21] MEDS: GEMFIBROZIL 600 MG TABLET (FP) GT SCH (17:55)
[2021-07-21] MEDS: MELATONIN 5 MG TABLETS PO SCH (21:33)
[2021-07-21] MEDS: ASCORBIC ACID 500 MG/5 ML UNIT DOSE CUP GT SCH (21:34)
[2021-07-21 23:29] LABS: HEMATOCRIT 26.8 % (35.4-49); HEMOGLOBIN 9.1 GM/dL (11.7-16.9); MCH 29.7 pg (25.7-33.7); MCHC 34.1 g/dl (32.0-35.9); MEAN CELL VOLUME 87.3 fl (80-96); MEAN PLT VOLUME 7.3 fl (7.5-11.1); MONO % 2.2 % (3.8-10.2); NEUT % 96.8 % (42.8-82.8); PLATELET COUNT 164 10^3/uL (134-434); RBC 3.06 M/mm3 (4.00-5.60); RDW 14.8 % (11.9-15.9); WHITE BLOOD COUNT 18.1 K/mm3 (4.0-10.0)
[2021-07-21 23:52] LABS: ANISOCYTOSIS 2+; MACROCYTOSIS 0; PLATELET ESTIMATE DECREASED
[2021-07-22] MEDS ORDERED: DEXTROSE 5%-WATER - 50 ML IVPB ONE ×3 (00:10→16:59)
[2021-07-22] MEDS ORDERED: PIPERACILLIN/TAZOBACTAM 3.375 GM VIAL IVPB ONE ×3 (00:10→16:59)
[2021-07-22] MEDS: PIPERACILLIN/TAZOB 3.375 GM 3.375 GM in DEXTROSE 5%-WATER - 50 ML IVPB SCH ×3 (02:37→17:05)
[2021-07-22 07:39] LABS: HEMATOCRIT 24.9 % (35.4-49); HEMOGLOBIN 8.4 GM/dL (11.7-16.9); MCH 29.5 pg (25.7-33.7); MCHC 33.6 g/dl (32.0-35.9); MEAN CELL VOLUME 87.8 fl (80-96); MEAN PLT VOLUME 7.7 fl (7.5-11.1); PLATELET COUNT 153 10^3/uL (134-434); RBC 2.83 M/mm3 (4.00-5.60); WHITE BLOOD COUNT 16.6 K/mm3 (4.0-10.0)
[2021-07-22 07:53] LABS: ALBUMIN 1.6 g/dl (3.4-5.0); BLOOD UREA NITROGEN 49.6 mg/dL (7-18); MAGNESIUM 2.3 mg/dL (1.8-2.4)
[2021-07-22 07:56] LABS: CREATININE 0.8 mg/dL (0.55-1.3)
[2021-07-22 07:57] LABS: BILIRUBIN,TOTAL 0.5 mg/dL (0.2-1); TOT PROT 3.8 g/dl (6.4-8.2)
[2021-07-22 07:58] LABS: CALCIUM 7.5 mg/dL (8.5-10.1)
[2021-07-22] MEDS: ATOVAQUONE 750 MG/5 ML (UNIT-DOSE PACKAGING) GT SCH (08:00)
[2021-07-22] MEDS: GEMFIBROZIL 600 MG TABLET (FP) GT SCH ×2 (08:00→17:05)
[2021-07-22] MEDS: FLUDROCORTISONE ACETATE 0.1 MG TABLET (FP) NGT SCH (09:05)
[2021-07-22] MEDS: ZINC SULFATE 220 MG CAPSULE (FP) GT SCH (09:05)
[2021-07-22] MEDS: DEXAMETHASONE SOD PHOSPHATE 10 MG/1 ML VIAL IVPUSH SCH (09:06)
[2021-07-22] MEDS: CHOLECALCIFEROL (VIT D SOLUTION) 400 UNIT/1 ML DROPS GT SCH (09:06)
[2021-07-22] MEDS: ESCITALOPRAM OXALATE 10 MG TABLET GT SCH (09:06)
[2021-07-22] MEDS: FERROUS SO4 300 MG/5 ML ORAL SOLN UNIT DOSE CUPS GT SCH (09:08)
[2021-07-22] MEDS: CALCIUM 500MG/VIT-D 200 UNITS COMBO TABLET (FP) GT SCH (09:09)
[2021-07-22] MEDS: ISONIAZID 300 MG TABLET (FP) GT SCH (09:09)
[2021-07-22] MEDS: TENOFOVIR DISOPROXIL FUMARATE 300 MG TABLET GT SCH (09:10)
[2021-07-22] MEDS: LEVOTHYROXINE SODIUM 100 MCG VIAL IVPUSH SCH (09:10)
[2021-07-22] MEDS: ASCORBIC ACID 500 MG/5 ML UNIT DOSE CUP GT SCH ×2 (09:10→22:35)
[2021-07-22 10:20] LABS: ANISOCYTOSIS 2+; MACROCYTOSIS 0; OVALOCYTE 1+; PLATELET ESTIMATE DECREASED; TARGET CELLS 1+; TEAR DROP CELLS 1+; TOXIC GRANULATION 2+
[2021-07-22] MEDS: FAMOTIDINE 20 MG/50 ML IVPB 20 MG/50 ML MG IVPB SCH ×2 (12:17→22:34)
[2021-07-22] MEDS: FENTANYL NS IVPB 500 MCG/100 ML BAG IVPB SCH (12:17)
[2021-07-22 16:22] VITALS: BMI 23.0
[2021-07-22] MEDS: MIDAZOLAM IN 0.9 % SOD.CHLORID 100 MG/100 ML PLAST..BAG IVPB SCH (17:04)
[2021-07-22] MEDS: MELATONIN 5 MG TABLETS PO SCH (22:35)
[2021-07-23] MEDS ORDERED: DEXTROSE 5%-WATER - 50 ML IVPB ONE ×4 (00:02→23:50)
[2021-07-23] MEDS ORDERED: PIPERACILLIN/TAZOBACTAM 3.375 GM VIAL IVPB ONE ×4 (00:02→23:50)
[2021-07-23] MEDS: PIPERACILLIN/TAZOB 3.375 GM 3.375 GM in DEXTROSE 5%-WATER - 50 ML IVPB SCH ×3 (01:58→17:32)
[2021-07-23 07:40] LABS: HEMATOCRIT 22.8 % (35.4-49); HEMOGLOBIN 7.6 GM/dL (11.7-16.9); MCH 29.4 pg (25.7-33.7); MCHC 33.4 g/dl (32.0-35.9); MEAN CELL VOLUME 87.8 fl (80-96); MEAN PLT VOLUME 8.2 fl (7.5-11.1); PLATELET COUNT 98 10^3/uL (134-434); RDW 15.4 % (11.9-15.9); WHITE BLOOD COUNT 13.8 K/mm3 (4.0-10.0)
[2021-07-23] MEDS: GEMFIBROZIL 600 MG TABLET (FP) GT SCH ×2 (08:03→16:42)
[2021-07-23] MEDS: AMINO ACIDS/PROTEIN HYDROLYS 30 ML LIQUID.PKT PO SCH (08:04)
[2021-07-23] MEDS: ATOVAQUONE 750 MG/5 ML (UNIT-DOSE PACKAGING) GT SCH (08:08)
[2021-07-23] MEDS: ZINC SULFATE 220 MG CAPSULE (FP) GT SCH (09:03)
[2021-07-23] MEDS: ESCITALOPRAM OXALATE 10 MG TABLET GT SCH (09:03)
[2021-07-23] MEDS: DEXAMETHASONE SOD PHOSPHATE 10 MG/1 ML VIAL IVPUSH SCH (09:03)
[2021-07-23] MEDS: FLUDROCORTISONE ACETATE 0.1 MG TABLET (FP) NGT SCH (09:03)
[2021-07-23] MEDS: FAMOTIDINE 20 MG/50 ML IVPB 20 MG/50 ML MG IVPB SCH ×2 (09:04→21:35)
[2021-07-23] MEDS: LACTOBACILLUS ACIDOPHILUS 1 TABLET GT SCH (09:04)
[2021-07-23] MEDS: ASCORBIC ACID 500 MG/5 ML UNIT DOSE CUP GT SCH ×2 (09:06→21:35)
[2021-07-23] MEDS: ISONIAZID 300 MG TABLET (FP) GT SCH (09:06)
[2021-07-23] MEDS: LEVOTHYROXINE SODIUM 100 MCG VIAL IVPUSH SCH (09:06)
[2021-07-23] MEDS: TENOFOVIR DISOPROXIL FUMARATE 300 MG TABLET GT SCH (09:09)
[2021-07-23] MEDS: CALCIUM 500MG/VIT-D 200 UNITS COMBO TABLET (FP) GT SCH (09:18)
[2021-07-23] MEDS: CHOLECALCIFEROL (VIT D SOLUTION) 400 UNIT/1 ML DROPS GT SCH (09:18)
[2021-07-23] MEDS: FERROUS SO4 300 MG/5 ML ORAL SOLN UNIT DOSE CUPS GT SCH (11:18)
[2021-07-23 17:32] LABS: HEMOGLOBIN 7.4 GM/dL (11.7-16.9); MCH 29.9 pg (25.7-33.7); MCHC 33.8 g/dl (32.0-35.9); MEAN CELL VOLUME 88.4 fl (80-96); MEAN PLT VOLUME 8.1 fl (7.5-11.1); PLATELET COUNT 87 10^3/uL (134-434); RBC 2.49 M/mm3 (4.00-5.60); RDW 15.9 % (11.9-15.9); WHITE BLOOD COUNT 11.9 K/mm3 (4.0-10.0)
[2021-07-23] MEDS: NOREPINEPHRINE BITARTRATE 16,000 MCG in SODIUM CHLORIDE 484 ML IV SCH (17:40)
[2021-07-23] MEDS: MELATONIN 5 MG TABLETS PO SCH (21:35)
[2021-07-23] MEDS: INSULIN SLIDING SCALE (NOVOLOG) 1 VIAL SQ SCH (21:39)
[2021-07-23] MEDS ORDERED: INSULIN (NOVOLOG) ASPART 100 UNITS/ML 10ML VIAL SQ SCH (22:00)
[2021-07-24] MEDS: PIPERACILLIN/TAZOB 3.375 GM 3.375 GM in DEXTROSE 5%-WATER - 50 ML IVPB SCH ×3 (02:43→17:18)
[2021-07-24] MEDS: INSULIN SLIDING SCALE (NOVOLOG) 1 VIAL SQ SCH ×4 (06:06→21:16)
[2021-07-24] MEDS: GEMFIBROZIL 600 MG TABLET (FP) GT SCH ×2 (08:00→16:03)
[2021-07-24 08:19] LABS: HEMATOCRIT 23.2 % (35.4-49); HEMOGLOBIN 7.8 GM/dL (11.7-16.9); MCH 29.6 pg (25.7-33.7); MCHC 33.4 g/dl (32.0-35.9); MEAN CELL VOLUME 88.4 fl (80-96); PLATELET COUNT 65 10^3/uL (134-434); RBC 2.63 M/mm3 (4.00-5.60); RDW 16.1 % (11.9-15.9); WHITE BLOOD COUNT 12.8 K/mm3 (4.0-10.0)
[2021-07-24] MEDS ORDERED: PIPERACILLIN/TAZOBACTAM 3.375 GM VIAL IVPB ONE ×2 (08:19→16:01)
[2021-07-24] MEDS ORDERED: DEXTROSE 5%-WATER - 50 ML IVPB ONE ×2 (08:19→16:02)
[2021-07-24] MEDS: ATOVAQUONE 750 MG/5 ML (UNIT-DOSE PACKAGING) GT SCH (08:30)
[2021-07-24] MEDS: AMINO ACIDS/PROTEIN HYDROLYS 30 ML LIQUID.PKT PO SCH (08:30)
[2021-07-24 08:39] LABS: ALBUMIN 1.8 g/dl (3.4-5.0); BILIRUBIN,TOTAL 0.3 mg/dL (0.2-1); PHOSPHOROUS 1.6 mg/dL (2.5-4.9)
[2021-07-24 08:40] LABS: BLOOD UREA NITROGEN 39.6 mg/dL (7-18); CREATININE 0.5 mg/dL (0.55-1.3)
[2021-07-24 08:41] LABS: MAGNESIUM 2.1 mg/dL (1.8-2.4); TOT PROT 4.1 g/dl (6.4-8.2)
[2021-07-24 08:42] LABS: CALCIUM 7.6 mg/dL (8.5-10.1)
[2021-07-24] MEDS: CHOLECALCIFEROL (VIT D SOLUTION) 400 UNIT/1 ML DROPS GT SCH (09:01)
[2021-07-24] MEDS: ZINC SULFATE 220 MG CAPSULE (FP) GT SCH (09:02)
[2021-07-24] MEDS: CALCIUM 500MG/VIT-D 200 UNITS COMBO TABLET (FP) GT SCH (09:03)
[2021-07-24] MEDS: LACTOBACILLUS ACIDOPHILUS 1 TABLET GT SCH (09:03)
[2021-07-24] MEDS: LEVOTHYROXINE SODIUM 100 MCG VIAL IVPUSH SCH (09:03)
[2021-07-24] MEDS: FERROUS SO4 300 MG/5 ML ORAL SOLN UNIT DOSE CUPS GT SCH (09:03)
[2021-07-24] MEDS: DEXAMETHASONE SOD PHOSPHATE 10 MG/1 ML VIAL IVPUSH SCH (09:03)
[2021-07-24] MEDS: ESCITALOPRAM OXALATE 10 MG TABLET GT SCH (09:03)
[2021-07-24] MEDS: TENOFOVIR DISOPROXIL FUMARATE 300 MG TABLET GT SCH (09:04)
[2021-07-24] MEDS: ASCORBIC ACID 500 MG/5 ML UNIT DOSE CUP GT SCH ×2 (09:04→21:15)
[2021-07-24] MEDS: ISONIAZID 300 MG TABLET (FP) GT SCH (09:04)
[2021-07-24] MEDS: FAMOTIDINE 20 MG/50 ML IVPB 20 MG/50 ML MG IVPB SCH ×2 (09:05→21:15)
[2021-07-24 11:18] LABS: ANISOCYTOSIS 2+; MACROCYTOSIS 0; OVALOCYTE 1+; PLATELET ESTIMATE DECREASED; TOXIC GRANULATION 2+
[2021-07-24] MEDS ORDERED: DEXMEDETOMIDINE IN 0.9 % NACL 400 MCG/100 ML VIAL IVPB SCH (14:30)
[2021-07-24] MEDS ORDERED: fentaNYL CITRATE 250 MCG/5 ML VIAL ONE (17:31)
[2021-07-24] MEDS: FENTANYL NS IVPB 500 MCG/100 ML BAG IVPB SCH ×2 (17:47→22:46)
[2021-07-24] MEDS: MELATONIN 5 MG TABLETS PO SCH (21:15)
[2021-07-25] MEDS: PIPERACILLIN/TAZOB 3.375 GM 3.375 GM in DEXTROSE 5%-WATER - 50 ML IVPB SCH ×3 (03:00→18:33)
[2021-07-25] MEDS ORDERED: PIPERACILLIN/TAZOBACTAM 3.375 GM VIAL IVPB ONE ×3 (03:08→18:31)
[2021-07-25] MEDS ORDERED: DEXTROSE 5%-WATER - 50 ML IVPB ONE ×3 (03:08→18:31)
[2021-07-25] MEDS: FENTANYL NS IVPB 500 MCG/100 ML BAG IVPB SCH ×4 (04:35→17:31)
[2021-07-25] MEDS: INSULIN SLIDING SCALE (NOVOLOG) 1 VIAL SQ SCH ×4 (06:24→23:37)
[2021-07-25 08:10] LABS: HEMATOCRIT 22.2 % (35.4-49); HEMOGLOBIN 7.4 GM/dL (11.7-16.9); MCH 29.7 pg (25.7-33.7); MCHC 33.5 g/dl (32.0-35.9); MEAN CELL VOLUME 88.6 fl (80-96); PLATELET COUNT 70 10^3/uL (134-434); RDW 15.9 % (11.9-15.9); WHITE BLOOD COUNT 11.1 K/mm3 (4.0-10.0)
[2021-07-25] MEDS: AMINO ACIDS/PROTEIN HYDROLYS 30 ML LIQUID.PKT PO SCH (08:18)
[2021-07-25 08:20] LABS: CALCIUM 7.6 mg/dL (8.5-10.1); MAGNESIUM 2.1 mg/dL (1.8-2.4)
[2021-07-25 08:21] LABS: BLOOD UREA NITROGEN 36.4 mg/dL (7-18)
[2021-07-25 08:24] LABS: CREATININE 0.3 mg/dL (0.55-1.3)
[2021-07-25] MEDS: ATOVAQUONE 750 MG/5 ML (UNIT-DOSE PACKAGING) GT SCH (08:24)
[2021-07-25] MEDS: GEMFIBROZIL 600 MG TABLET (FP) GT SCH ×2 (08:36→17:31)
[2021-07-25 08:37] LABS: PHOSPHOROUS 1.2 mg/dL (2.5-4.9)
[2021-07-25] MEDS ORDERED: FUROSEMIDE 40 MG/4 ML INJECTABLE VIAL IVPUSH ONE (09:57)
[2021-07-25] MEDS: ZINC SULFATE 220 MG CAPSULE (FP) GT SCH (10:30)
[2021-07-25] MEDS: ESCITALOPRAM OXALATE 10 MG TABLET GT SCH (10:31)
[2021-07-25] MEDS: FAMOTIDINE 20 MG/50 ML IVPB 20 MG/50 ML MG IVPB SCH ×2 (10:31→22:20)
[2021-07-25] MEDS: DEXAMETHASONE SOD PHOSPHATE 10 MG/1 ML VIAL IVPUSH SCH (10:32)
[2021-07-25] MEDS: CHOLECALCIFEROL (VIT D SOLUTION) 400 UNIT/1 ML DROPS GT SCH (10:34)
[2021-07-25] MEDS: ISONIAZID 300 MG TABLET (FP) GT SCH (10:35)
[2021-07-25] MEDS: FERROUS SO4 300 MG/5 ML ORAL SOLN UNIT DOSE CUPS GT SCH (10:35)
[2021-07-25] MEDS: LEVOTHYROXINE SODIUM 100 MCG VIAL IVPUSH SCH (10:36)
[2021-07-25] MEDS: TENOFOVIR DISOPROXIL FUMARATE 300 MG TABLET GT SCH (10:37)
[2021-07-25] MEDS: ASCORBIC ACID 500 MG/5 ML UNIT DOSE CUP GT SCH ×2 (10:38→22:20)
[2021-07-25] MEDS: VASOPRESSIN 40 UNITS/100 ML BAG IV SCH (14:24)
[2021-07-25] MEDS: LACTOBACILLUS ACIDOPHILUS 1 TABLET GT SCH (14:32)
[2021-07-25] MEDS: CALCIUM 500MG/VIT-D 200 UNITS COMBO TABLET (FP) GT SCH (14:32)
[2021-07-25] MEDS ORDERED: SODIUM CHLORIDE 500 ML IV STA ×2 (19:39→22:24)
[2021-07-25] MEDS: MELATONIN 5 MG TABLETS PO SCH ×2 (22:19→23:40)
[2021-07-26] MEDS ORDERED: PIPERACILLIN/TAZOBACTAM 3.375 GM VIAL IVPB ONE ×2 (01:40→09:16)
[2021-07-26] MEDS ORDERED: DEXTROSE 5%-WATER - 50 ML IVPB ONE ×2 (01:40→09:16)
[2021-07-26] MEDS ORDERED: MIDAZOLAM 100 MG in SODIUM CHLORIDE 100 ML IVPB SCH (02:30)
[2021-07-26] MEDS: PIPERACILLIN/TAZOB 3.375 GM 3.375 GM in DEXTROSE 5%-WATER - 50 ML IVPB SCH ×2 (02:38→09:45)
[2021-07-26] MEDS: VASOPRESSIN 40 UNITS/100 ML BAG IV SCH ×2 (05:45→22:34)
[2021-07-26 06:01] LABS: ARTERIAL BLD GAS O2 SATURATION 94.6 % (95-98); ARTERIAL BLOOD GAS BASE EXCESS 2.4 mmol/L (-2-2); ARTERIAL BLOOD GAS PO2 70.4 mmHg (80-100); ARTERIAL BLOOD GAS pH 7.429 (7.350-7.450)
[2021-07-26 06:03] LABS: VENT MODE V-A/C
[2021-07-26 06:04] LABS: VENT RATE 16
[2021-07-26] MEDS: INSULIN SLIDING SCALE (NOVOLOG) 1 VIAL SQ SCH ×4 (07:00→22:39)
[2021-07-26 07:58] LABS: HEMATOCRIT 19.9 % (35.4-49); MCH 29.2 pg (25.7-33.7); MCHC 32.9 g/dl (32.0-35.9); MEAN CELL VOLUME 88.7 fl (80-96); MEAN PLT VOLUME 10.4 fl (7.5-11.1); PLATELET COUNT 75 10^3/uL (134-434); RBC 2.24 M/mm3 (4.00-5.60); RDW 16.4 % (11.9-15.9); WHITE BLOOD COUNT 12.8 K/mm3 (4.0-10.0)
[2021-07-26 08:08] LABS: CHLORIDE 101 mmol/L (98-107); SODIUM 139 mmol/L (136-145)
[2021-07-26 08:10] LABS: CALCIUM 7.5 mg/dL (8.5-10.1)
[2021-07-26 08:11] LABS: ANION GAP 7 MMOL/L (8-16); BLOOD UREA NITROGEN 32.9 mg/dL (7-18); CO2 31 mmol/L (21-32); GLUCOSE,RANDOM 319 mg/dL (74-106)
[2021-07-26 08:14] LABS: CREATININE 0.4 mg/dL (0.55-1.3)
[2021-07-26] MEDS ORDERED: NAPH,MB-DB/K PH,MBDB POWDER PACKET PO ONE (08:17)
[2021-07-26] MEDS ORDERED: POTASSIUM PHOSPHATE 30 MM in SODIUM CHLORIDE 250 ML IVPB ONE (08:18)
[2021-07-26 09:17] LABS: HEMOGLOBIN 6.5 GM/dL (11.7-16.9)
[2021-07-26] MEDS: FAMOTIDINE 20 MG/50 ML IVPB 20 MG/50 ML MG IVPB SCH ×2 (09:45→22:34)
[2021-07-26] MEDS: AMINO ACIDS/PROTEIN HYDROLYS 30 ML LIQUID.PKT PO SCH (09:46)
[2021-07-26] MEDS: ATOVAQUONE 750 MG/5 ML (UNIT-DOSE PACKAGING) GT SCH (09:46)
[2021-07-26] MEDS: CHOLECALCIFEROL (VIT D SOLUTION) 400 UNIT/1 ML DROPS GT SCH (09:46)
[2021-07-26] MEDS: FERROUS SO4 300 MG/5 ML ORAL SOLN UNIT DOSE CUPS GT SCH (09:47)
[2021-07-26] MEDS: ASCORBIC ACID 500 MG/5 ML UNIT DOSE CUP GT SCH ×2 (09:47→22:34)
[2021-07-26] MEDS: DEXAMETHASONE SOD PHOSPHATE 10 MG/1 ML VIAL IVPUSH SCH (09:48)
[2021-07-26] MEDS: CALCIUM 500MG/VIT-D 200 UNITS COMBO TABLET (FP) GT SCH (09:48)
[2021-07-26] MEDS: LEVOTHYROXINE SODIUM 100 MCG VIAL IVPUSH SCH (09:48)
[2021-07-26] MEDS: ESCITALOPRAM OXALATE 10 MG TABLET GT SCH (09:49)
[2021-07-26] MEDS: LACTOBACILLUS ACIDOPHILUS 1 TABLET GT SCH (09:49)
[2021-07-26] MEDS: ZINC SULFATE 220 MG CAPSULE (FP) GT SCH (09:49)
[2021-07-26] MEDS: GEMFIBROZIL 600 MG TABLET (FP) GT SCH ×2 (09:49→19:40)
[2021-07-26] MEDS: ISONIAZID 300 MG TABLET (FP) GT SCH (09:51)
[2021-07-26] MEDS: TENOFOVIR DISOPROXIL FUMARATE 300 MG TABLET GT SCH (09:52)
[2021-07-26] MEDS: FENTANYL NS IVPB 500 MCG/100 ML BAG IVPB SCH ×4 (10:01→21:36)
[2021-07-26] MEDS ORDERED: PROPOFOL 1,000,000 MCG/100 ML VIAL ONE (10:13)
[2021-07-26] MEDS ORDERED: DEXMEDETOMIDINE IN 0.9 % NACL 400 MCG/100 ML VIAL IVPB SCH (10:15)
[2021-07-26 10:29] LABS: ANISOCYTOSIS 1+; MACROCYTOSIS 0; OVALOCYTE 1+; PLATELET ESTIMATE DECREASED
[2021-07-26] MEDS ORDERED: PROPOFOL 200 MG/20 ML VIAL IVPUSH ONE (10:42)
[2021-07-26] MEDS ORDERED: PROPOFOL 1,000,000 MCG/100 ML VIAL IVPB SCH (10:45)
[2021-07-26] MEDS ORDERED: SODIUM CHLORIDE 500 ML IV STA (11:02)
[2021-07-26] MEDS: DEXMEDETOMIDINE IN 0.9 % NACL 400 MCG/100 ML VIAL IVPB SCH (13:00)
[2021-07-26 21:04] LABS: HEMATOCRIT 23.4 % (35.4-49); HEMOGLOBIN 7.8 GM/dL (11.7-16.9); MCHC 33.3 g/dl (32.0-35.9); MEAN CELL VOLUME 87.1 fl (80-96); MEAN PLT VOLUME 9.7 fl (7.5-11.1); PLATELET COUNT 70 10^3/uL (134-434); RBC 2.68 M/mm3 (4.00-5.60); RDW 16.6 % (11.9-15.9); WHITE BLOOD COUNT 11.9 K/mm3 (4.0-10.0)
[2021-07-26] MEDS: MELATONIN 5 MG TABLETS PO SCH (22:34)
[2021-07-27] MEDS: FENTANYL NS IVPB 500 MCG/100 ML BAG IVPB SCH ×4 (02:26→22:30)
[2021-07-27] MEDS: INSULIN SLIDING SCALE (NOVOLOG) 1 VIAL SQ SCH ×4 (06:30→23:04)
[2021-07-27 07:49] LABS: HEMATOCRIT 23.4 % (35.4-49); HEMOGLOBIN 7.9 GM/dL (11.7-16.9); MCH 29.4 pg (25.7-33.7); MCHC 33.7 g/dl (32.0-35.9); MEAN CELL VOLUME 87.3 fl (80-96); MEAN PLT VOLUME 9.6 fl (7.5-11.1); PLATELET COUNT 84 10^3/uL (134-434); RBC 2.68 M/mm3 (4.00-5.60); RDW 16.6 % (11.9-15.9); WHITE BLOOD COUNT 10.9 K/mm3 (4.0-10.0)
[2021-07-27 08:14] LABS: ALBUMIN 1.9 g/dl (3.4-5.0); BLOOD UREA NITROGEN 28.4 mg/dL (7-18); CALCIUM 8.1 mg/dL (8.5-10.1); MAGNESIUM 2.1 mg/dL (1.8-2.4)
[2021-07-27 08:17] LABS: CREATININE 0.3 mg/dL (0.55-1.3); PHOSPHOROUS 2.3 mg/dL (2.5-4.9)
[2021-07-27 08:18] LABS: BILIRUBIN,TOTAL 0.4 mg/dL (0.2-1); TOT PROT 4.3 g/dl (6.4-8.2)
[2021-07-27] MEDS ORDERED: NAPH,MB-DB/K PH,MBDB POWDER PACKET PO ONE (08:33)
[2021-07-27] MEDS: DEXMEDETOMIDINE IN 0.9 % NACL 400 MCG/100 ML VIAL IVPB SCH (09:00)
[2021-07-27] MEDS: CALCIUM 500MG/VIT-D 200 UNITS COMBO TABLET (FP) GT SCH (10:15)
[2021-07-27] MEDS: FERROUS SO4 300 MG/5 ML ORAL SOLN UNIT DOSE CUPS GT SCH (10:15)
[2021-07-27] MEDS: GEMFIBROZIL 600 MG TABLET (FP) GT SCH ×2 (10:15→17:32)
[2021-07-27] MEDS: ASCORBIC ACID 500 MG/5 ML UNIT DOSE CUP GT SCH ×2 (10:16→23:04)
[2021-07-27] MEDS: LACTOBACILLUS ACIDOPHILUS 1 TABLET GT SCH (10:16)
[2021-07-27] MEDS: AMINO ACIDS/PROTEIN HYDROLYS 30 ML LIQUID.PKT PO SCH (10:16)
[2021-07-27] MEDS: DEXAMETHASONE SOD PHOSPHATE 10 MG/1 ML VIAL IVPUSH SCH (10:16)
[2021-07-27] MEDS: ZINC SULFATE 220 MG CAPSULE (FP) GT SCH (10:16)
[2021-07-27] MEDS: CHOLECALCIFEROL (VIT D SOLUTION) 400 UNIT/1 ML DROPS GT SCH (10:17)
[2021-07-27] MEDS: LEVOTHYROXINE SODIUM 100 MCG VIAL IVPUSH SCH (10:17)
[2021-07-27] MEDS: ISONIAZID 300 MG TABLET (FP) GT SCH (10:18)
[2021-07-27] MEDS: ATOVAQUONE 750 MG/5 ML (UNIT-DOSE PACKAGING) GT SCH (10:18)
[2021-07-27] MEDS: TENOFOVIR DISOPROXIL FUMARATE 300 MG TABLET GT SCH (10:19)
[2021-07-27 10:23] LABS: ANISOCYTOSIS 1+; MACROCYTOSIS 0; OVALOCYTE 1+; PLATELET ESTIMATE DECREASED
[2021-07-27] MEDS: FAMOTIDINE 20 MG/50 ML IVPB 20 MG/50 ML MG IVPB SCH ×2 (10:24→21:38)
[2021-07-27] MEDS: ESCITALOPRAM OXALATE 10 MG TABLET GT SCH (10:25)
[2021-07-27] MEDS: VASOPRESSIN 40 UNITS/100 ML BAG IV SCH (11:31)
[2021-07-27] MEDS: MIDAZOLAM IN 0.9 % SOD.CHLORID 100 MG/100 ML PLAST..BAG IVPB SCH ×2 (12:30→18:33)
[2021-07-27] MEDS ORDERED: VASOPRESSIN 20 UNITS/ML VIAL IV ONE (17:32)
[2021-07-27] MEDS: MELATONIN 5 MG TABLETS PO SCH (21:38)
[2021-07-28] MEDS: FENTANYL NS IVPB 500 MCG/100 ML BAG IVPB SCH ×2 (03:30→12:41)
[2021-07-28] MEDS: VASOPRESSIN 40 UNITS/100 ML BAG IV SCH ×3 (05:00→22:15)
[2021-07-28] MEDS: MIDAZOLAM IN 0.9 % SOD.CHLORID 100 MG/100 ML PLAST..BAG IVPB SCH ×2 (05:01→12:07)
[2021-07-28] MEDS: INSULIN SLIDING SCALE (NOVOLOG) 1 VIAL SQ SCH ×4 (06:22→21:53)
[2021-07-28 07:49] LABS: HEMATOCRIT 22.7 % (35.4-49); HEMOGLOBIN 7.7 GM/dL (11.7-16.9); MCH 29.6 pg (25.7-33.7); MCHC 33.8 g/dl (32.0-35.9); MEAN CELL VOLUME 87.8 fl (80-96); MEAN PLT VOLUME 9.1 fl (7.5-11.1); PLATELET COUNT 122 10^3/uL (134-434); RBC 2.59 M/mm3 (4.00-5.60); RDW 17.2 % (11.9-15.9); WHITE BLOOD COUNT 8.9 K/mm3 (4.0-10.0)
[2021-07-28 08:29] LABS: ALBUMIN 1.9 g/dl (3.4-5.0); BLOOD UREA NITROGEN 25.4 mg/dL (7-18); CALCIUM 7.9 mg/dL (8.5-10.1)
[2021-07-28 08:32] LABS: CREATININE 0.2 mg/dL (0.55-1.3); PHOSPHOROUS 1.6 mg/dL (2.5-4.9)
[2021-07-28 08:34] LABS: BILIRUBIN,TOTAL 0.3 mg/dL (0.2-1)
[2021-07-28 08:35] LABS: TOT PROT 4.4 g/dl (6.4-8.2)
[2021-07-28 09:49] LABS: ANISOCYTOSIS 0; HELMET CELLS 0; HOWELL-JOLLY BODIES 0; MACROCYTOSIS 0; OVALOCYTE 0; PLATELET ESTIMATE DECREASED; ROULEAU 0; SICKELED CELLS 0; TARGET CELLS 0; TEAR DROP CELLS 0; TOXIC GRANULATION 0
[2021-07-28] MEDS ORDERED: SODIUM PHOSPHATE - 30 MM in SODIUM CHLORIDE 250 ML IVPB ONE (10:00)
[2021-07-28] MEDS: FAMOTIDINE 20 MG/50 ML IVPB 20 MG/50 ML MG IVPB SCH ×2 (10:30→22:17)
[2021-07-28] MEDS: AMINO ACIDS/PROTEIN HYDROLYS 30 ML LIQUID.PKT PO SCH (10:31)
[2021-07-28] MEDS: ATOVAQUONE 750 MG/5 ML (UNIT-DOSE PACKAGING) GT SCH (10:31)
[2021-07-28] MEDS: CALCIUM 500MG/VIT-D 200 UNITS COMBO TABLET (FP) GT SCH (10:32)
[2021-07-28] MEDS: LEVOTHYROXINE SODIUM 100 MCG VIAL IVPUSH SCH (10:32)
[2021-07-28] MEDS: ASCORBIC ACID 500 MG/5 ML UNIT DOSE CUP GT SCH ×2 (10:32→22:18)
[2021-07-28] MEDS: ISONIAZID 300 MG TABLET (FP) GT SCH (10:32)
[2021-07-28] MEDS: CHOLECALCIFEROL (VIT D SOLUTION) 400 UNIT/1 ML DROPS GT SCH (10:32)
[2021-07-28] MEDS: FERROUS SO4 300 MG/5 ML ORAL SOLN UNIT DOSE CUPS GT SCH (10:32)
[2021-07-28] MEDS: DEXAMETHASONE SOD PHOSPHATE 10 MG/1 ML VIAL IVPUSH SCH (10:33)
[2021-07-28] MEDS: LACTOBACILLUS ACIDOPHILUS 1 TABLET GT SCH (10:33)
[2021-07-28] MEDS: ZINC SULFATE 220 MG CAPSULE (FP) GT SCH (10:33)
[2021-07-28] MEDS: ESCITALOPRAM OXALATE 10 MG TABLET GT SCH (10:33)
[2021-07-28] MEDS: GEMFIBROZIL 600 MG TABLET (FP) GT SCH ×2 (10:34→17:40)
[2021-07-28] MEDS ORDERED: SODIUM CHLORIDE 500 ML IV STA (11:34)
[2021-07-28] MEDS: DEXMEDETOMIDINE IN 0.9 % NACL 400 MCG/100 ML VIAL IVPB SCH (12:06)
[2021-07-28] MEDS ORDERED: ACETYLCYSTEINE 20% 200MG/ML 4 ML VIAL *FOR ORAL / INH USE ONLY PO ONE (12:15)
[2021-07-28] MEDS ORDERED: SUCCINYLCHOLINE CHLORIDE 200 MG/10 ML SYRINGE ONE (13:38)
[2021-07-28] MEDS ORDERED: SODIUM CHLORIDE 0.9% 500 ML INFUS.BAG IV ONE ×2 (14:30→17:28)
[2021-07-28] MEDS: TENOFOVIR DISOPROXIL FUMARATE 300 MG TABLET GT SCH (17:39)
[2021-07-28] MEDS ORDERED: NOREPINEPHRINE BITARTRATE 4 MG/4 ML ML IV ONE (18:00)
[2021-07-28] MEDS: NOREPINEPHRINE BITARTRATE 16,000 MCG in SODIUM CHLORIDE 484 ML IV SCH (18:09)
[2021-07-28] MEDS: MELATONIN 5 MG TABLETS PO SCH (22:16)
[2021-07-29] MEDS: INSULIN SLIDING SCALE (NOVOLOG) 1 VIAL SQ SCH ×4 (06:53→22:06)
[2021-07-29 08:03] LABS: HEMOGLOBIN 7.5 GM/dL (11.7-16.9); MCH 28.9 pg (25.7-33.7); MCHC 32.4 g/dl (32.0-35.9); MEAN CELL VOLUME 89.4 fl (80-96); PLATELET COUNT 166 10^3/uL (134-434); RBC 2.58 M/mm3 (4.00-5.60); RDW 16.6 % (11.9-15.9)
[2021-07-29] MEDS: GEMFIBROZIL 600 MG TABLET (FP) GT SCH ×2 (08:30→16:38)
[2021-07-29 08:42] LABS: ALBUMIN 1.9 g/dl (3.4-5.0); BLOOD UREA NITROGEN 19.6 mg/dL (7-18); MAGNESIUM 1.9 mg/dL (1.8-2.4)
[2021-07-29 08:44] LABS: CREATININE 0.2 mg/dL (0.55-1.3)
[2021-07-29 08:45] LABS: BILIRUBIN,TOTAL 0.4 mg/dL (0.2-1); TOT PROT 4.4 g/dl (6.4-8.2)
[2021-07-29] MEDS ORDERED: MIDAZOLAM 100 MG/100 ML MG IVPB SCH (08:47)
[2021-07-29] MEDS ORDERED: NAPH,MB-DB/K PH,MBDB POWDER PACKET PO ONE (08:50)
[2021-07-29] MEDS: AMINO ACIDS/PROTEIN HYDROLYS 30 ML LIQUID.PKT PO SCH (09:00)
[2021-07-29] MEDS: ATOVAQUONE 750 MG/5 ML (UNIT-DOSE PACKAGING) GT SCH (09:00)
[2021-07-29] MEDS: CALCIUM 500MG/VIT-D 200 UNITS COMBO TABLET (FP) GT SCH (10:02)
[2021-07-29] MEDS: ASCORBIC ACID 500 MG/5 ML UNIT DOSE CUP GT SCH ×2 (10:02→22:07)
[2021-07-29] MEDS: FERROUS SO4 300 MG/5 ML ORAL SOLN UNIT DOSE CUPS GT SCH (10:03)
[2021-07-29] MEDS: CHOLECALCIFEROL (VIT D SOLUTION) 400 UNIT/1 ML DROPS GT SCH (10:04)
[2021-07-29] MEDS: ISONIAZID 300 MG TABLET (FP) GT SCH (10:04)
[2021-07-29] MEDS: DEXMEDETOMIDINE IN 0.9 % NACL 400 MCG/100 ML VIAL IVPB SCH (10:04)
[2021-07-29] MEDS: ESCITALOPRAM OXALATE 10 MG TABLET GT SCH (10:11)
[2021-07-29] MEDS: FAMOTIDINE 20 MG/50 ML IVPB 20 MG/50 ML MG IVPB SCH ×2 (10:11→22:00)
[2021-07-29] MEDS: ZINC SULFATE 220 MG CAPSULE (FP) GT SCH (10:11)
[2021-07-29] MEDS: LACTOBACILLUS ACIDOPHILUS 1 TABLET GT SCH (10:12)
[2021-07-29] MEDS: LEVOTHYROXINE SODIUM 100 MCG VIAL IVPUSH SCH (10:13)
[2021-07-29] MEDS: FENTANYL NS IVPB 500 MCG/100 ML BAG IVPB SCH ×2 (10:14→14:07)
[2021-07-29] MEDS: DEXAMETHASONE SOD PHOSPHATE 10 MG/1 ML VIAL IVPUSH SCH (10:14)
[2021-07-29] MEDS: TENOFOVIR DISOPROXIL FUMARATE 300 MG TABLET GT SCH (11:00)
[2021-07-29] MEDS: VASOPRESSIN 40 UNITS/100 ML BAG IV SCH ×2 (14:06→15:00)
[2021-07-29] MEDS ORDERED: PIPERACILLIN/TAZOB 4.5 GM 4.5 GM in DEXTROSE 5%-WATER 100 ML IVPB SCH (15:00)
[2021-07-29] MEDS ORDERED: DEXTROSE 5%-WATER 100 ML IVPB ONE (17:12)
[2021-07-29] MEDS ORDERED: MEROPENEM 1 GM VIAL (RESTRICTED TO ID) IVPB ONE (17:12)
[2021-07-29] MEDS: MEROPENEM 1 GM in DEXTROSE 5%-WATER 100 ML IVPB SCH (17:13)
[2021-07-29] MEDS ORDERED: MEROPENEM 1 GM in DEXTROSE 5%-WATER 100 ML IVPB SCH (18:00)
[2021-07-29] MEDS: MELATONIN 5 MG TABLETS PO SCH (22:04)
[2021-07-30] MEDS ORDERED: DEXTROSE 5%-WATER 100 ML IVPB ONE ×2 (01:35→10:16)
[2021-07-30] MEDS ORDERED: MEROPENEM 1 GM VIAL (RESTRICTED TO ID) IVPB ONE ×2 (01:35→10:16)
[2021-07-30] MEDS: MIDAZOLAM IN 0.9 % SOD.CHLORID 100 MG/100 ML PLAST..BAG IVPB SCH ×2 (03:04→21:19)
[2021-07-30] MEDS: NOREPINEPHRINE BITARTRATE 16,000 MCG in SODIUM CHLORIDE 484 ML IV SCH ×2 (03:05→21:18)
[2021-07-30] MEDS: FENTANYL NS IVPB 500 MCG/100 ML BAG IVPB SCH ×2 (03:05→21:17)
[2021-07-30] MEDS: MEROPENEM 1 GM in DEXTROSE 5%-WATER 100 ML IVPB SCH ×2 (03:07→10:22)
[2021-07-30 07:20] LABS: HEMATOCRIT 22.3 % (35.4-49); HEMOGLOBIN 7.4 GM/dL (11.7-16.9); MCH 29.2 pg (25.7-33.7); MEAN CELL VOLUME 88.4 fl (80-96); MEAN PLT VOLUME 9.7 fl (7.5-11.1); PLATELET COUNT 178 10^3/uL (134-434); RBC 2.53 M/mm3 (4.00-5.60); RDW 16.7 % (11.9-15.9); WHITE BLOOD COUNT 4.9 K/mm3 (4.0-10.0)
[2021-07-30 07:33] LABS: ALBUMIN 1.8 g/dl (3.4-5.0); CALCIUM 8.4 mg/dL (8.5-10.1)
[2021-07-30 07:34] LABS: BLOOD UREA NITROGEN 21.8 mg/dL (7-18); MAGNESIUM 1.8 mg/dL (1.8-2.4)
[2021-07-30 07:36] LABS: CREATININE 0.2 mg/dL (0.55-1.3); PHOSPHOROUS 2.4 mg/dL (2.5-4.9)
[2021-07-30 07:38] LABS: BILIRUBIN,TOTAL 0.4 mg/dL (0.2-1); TOT PROT 4.5 g/dl (6.4-8.2)
[2021-07-30] MEDS: AMINO ACIDS/PROTEIN HYDROLYS 30 ML LIQUID.PKT PO SCH (07:55)
[2021-07-30] MEDS: GEMFIBROZIL 600 MG TABLET (FP) GT SCH ×2 (07:55→17:28)
[2021-07-30] MEDS: INSULIN SLIDING SCALE (NOVOLOG) 1 VIAL SQ SCH ×4 (07:57→21:19)
[2021-07-30] MEDS: ATOVAQUONE 750 MG/5 ML (UNIT-DOSE PACKAGING) GT SCH (07:57)
[2021-07-30 09:14] LABS: ANISOCYTOSIS 2+; MACROCYTOSIS 1+; OVALOCYTE 1+; PLATELET ESTIMATE NORMAL; TEAR DROP CELLS 1+
[2021-07-30] MEDS ORDERED: NAPH,MB-DB/K PH,MBDB POWDER PACKET PO ONE (10:13)
[2021-07-30] MEDS: LACTOBACILLUS ACIDOPHILUS 1 TABLET GT SCH (10:23)
[2021-07-30] MEDS: FAMOTIDINE 20 MG/50 ML IVPB 20 MG/50 ML MG IVPB SCH ×2 (10:23→21:20)
[2021-07-30] MEDS: DEXAMETHASONE SOD PHOSPHATE 10 MG/1 ML VIAL IVPUSH SCH (10:23)
[2021-07-30] MEDS: ZINC SULFATE 220 MG CAPSULE (FP) GT SCH (10:23)
[2021-07-30] MEDS: ESCITALOPRAM OXALATE 10 MG TABLET GT SCH (10:23)
[2021-07-30] MEDS: ISONIAZID 300 MG TABLET (FP) GT SCH (10:24)
[2021-07-30] MEDS: CHOLECALCIFEROL (VIT D SOLUTION) 400 UNIT/1 ML DROPS GT SCH (10:24)
[2021-07-30] MEDS: ASCORBIC ACID 500 MG/5 ML UNIT DOSE CUP GT SCH ×2 (10:24→21:20)
[2021-07-30] MEDS: FERROUS SO4 300 MG/5 ML ORAL SOLN UNIT DOSE CUPS GT SCH (10:24)
[2021-07-30] MEDS: TENOFOVIR DISOPROXIL FUMARATE 300 MG TABLET GT SCH (10:25)
[2021-07-30] MEDS: LEVOTHYROXINE SODIUM 100 MCG VIAL IVPUSH SCH (10:25)
[2021-07-30] MEDS: CALCIUM 500MG/VIT-D 200 UNITS COMBO TABLET (FP) GT SCH (10:25)
[2021-07-30] MEDS: MELATONIN 5 MG TABLETS PO SCH (21:19)
[2021-07-31] MEDS: INSULIN SLIDING SCALE (NOVOLOG) 1 VIAL SQ SCH ×4 (06:08→21:18)
[2021-07-31] MEDS ORDERED: SODIUM CHLORIDE 1,000 ML IV STA (06:50)
[2021-07-31 06:59] LABS: HEMATOCRIT 22.8 % (35.4-49); HEMOGLOBIN 7.5 GM/dL (11.7-16.9); MCH 29.2 pg (25.7-33.7); MCHC 33.1 g/dl (32.0-35.9); MEAN CELL VOLUME 88.1 fl (80-96); MEAN PLT VOLUME 8.3 fl (7.5-11.1); PLATELET COUNT 214 10^3/uL (134-434); RBC 2.58 M/mm3 (4.00-5.60); RDW 16.5 % (11.9-15.9); WHITE BLOOD COUNT 4.9 K/mm3 (4.0-10.0)
[2021-07-31 07:33] LABS: ALBUMIN 1.8 g/dl (3.4-5.0); BLOOD UREA NITROGEN 19.7 mg/dL (7-18); MAGNESIUM 1.9 mg/dL (1.8-2.4)
[2021-07-31 07:36] LABS: CREATININE 0.2 mg/dL (0.55-1.3); PHOSPHOROUS 2.1 mg/dL (2.5-4.9)
[2021-07-31 07:37] LABS: BILIRUBIN,TOTAL 0.5 mg/dL (0.2-1); TOT PROT 4.5 g/dl (6.4-8.2)
[2021-07-31 10:01] LABS: ANISOCYTOSIS 0; HELMET CELLS 0; HOWELL-JOLLY BODIES 0; MACROCYTOSIS 0; OVALOCYTE 0; PLATELET ESTIMATE NORMAL; ROULEAU 0; SICKELED CELLS 0; TARGET CELLS 0; TEAR DROP CELLS 0; TOXIC GRANULATION 0
[2021-07-31] MEDS: DEXAMETHASONE SOD PHOSPHATE 10 MG/1 ML VIAL IVPUSH SCH (10:17)
[2021-07-31] MEDS: AMINO ACIDS/PROTEIN HYDROLYS 30 ML LIQUID.PKT PO SCH (10:20)
[2021-07-31] MEDS: GEMFIBROZIL 600 MG TABLET (FP) GT SCH ×2 (10:20→17:56)
[2021-07-31] MEDS: ATOVAQUONE 750 MG/5 ML (UNIT-DOSE PACKAGING) GT SCH (10:22)
[2021-07-31] MEDS: CHOLECALCIFEROL (VIT D SOLUTION) 400 UNIT/1 ML DROPS GT SCH (10:23)
[2021-07-31] MEDS: TENOFOVIR DISOPROXIL FUMARATE 300 MG TABLET GT SCH (10:24)
[2021-07-31] MEDS: ZINC SULFATE 220 MG CAPSULE (FP) GT SCH (10:26)
[2021-07-31] MEDS: FERROUS SO4 300 MG/5 ML ORAL SOLN UNIT DOSE CUPS GT SCH (10:26)
[2021-07-31] MEDS: ESCITALOPRAM OXALATE 10 MG TABLET GT SCH (10:26)
[2021-07-31] MEDS: CALCIUM 500MG/VIT-D 200 UNITS COMBO TABLET (FP) GT SCH (10:26)
[2021-07-31] MEDS: ISONIAZID 300 MG TABLET (FP) GT SCH (10:26)
[2021-07-31] MEDS: ASCORBIC ACID 500 MG/5 ML UNIT DOSE CUP GT SCH ×2 (10:27→21:08)
[2021-07-31] MEDS: LACTOBACILLUS ACIDOPHILUS 1 TABLET GT SCH (10:29)
[2021-07-31] MEDS: FAMOTIDINE 20 MG/50 ML IVPB 20 MG/50 ML MG IVPB SCH ×2 (10:35→21:08)
[2021-07-31] MEDS: FENTANYL NS IVPB 500 MCG/100 ML BAG IVPB SCH ×2 (11:56→17:30)
[2021-07-31] MEDS ORDERED: MEROPENEM 1 GM in DEXTROSE 5%-WATER 100 ML IVPB SCH (12:00)
[2021-07-31] MEDS: LEVOTHYROXINE SODIUM 100 MCG VIAL IVPUSH SCH (12:16)
[2021-07-31] MEDS ORDERED: NAPH,MB-DB/K PH,MBDB POWDER PACKET NGT ONE (17:48)
[2021-07-31] MEDS: MIDAZOLAM IN 0.9 % SOD.CHLORID 100 MG/100 ML PLAST..BAG IVPB SCH (19:15)
[2021-07-31] MEDS: NOREPINEPHRINE BITARTRATE 16,000 MCG in SODIUM CHLORIDE 484 ML IV SCH (19:15)
[2021-07-31] MEDS: MELATONIN 5 MG TABLETS PO SCH (21:08)
[2021-08-01] MEDS ORDERED: MIDAZOLAM HCL 2 MG/2 ML SINGLE DOSE VIAL IVPUSH ONE (05:22)
[2021-08-01] MEDS: DEXMEDETOMIDINE IN 0.9 % NACL 400 MCG/100 ML VIAL IVPB SCH (06:19)
[2021-08-01] MEDS: INSULIN SLIDING SCALE (NOVOLOG) 1 VIAL SQ SCH ×4 (06:43→22:15)
[2021-08-01 07:16] LABS: EOS % 0.1 % (0-4.5); HEMATOCRIT 21.8 % (35.4-49); HEMOGLOBIN 7.1 GM/dL (11.7-16.9); LYMPH % 5.4 % (8-40); MCH 28.7 pg (25.7-33.7); MCHC 32.7 g/dl (32.0-35.9); MEAN CELL VOLUME 87.6 fl (80-96); MEAN PLT VOLUME 7.9 fl (7.5-11.1); MONO % 6.1 % (3.8-10.2); NEUT % 88.4 % (42.8-82.8); PLATELET COUNT 207 10^3/uL (134-434); RBC 2.49 M/mm3 (4.00-5.60); WHITE BLOOD COUNT 5.8 K/mm3 (4.0-10.0)
[2021-08-01 07:31] LABS: CHLORIDE 109 mmol/L (98-107); SODIUM 144 mmol/L (136-145)
[2021-08-01 07:33] LABS: CALCIUM 8.7 mg/dL (8.5-10.1)
[2021-08-01 07:34] LABS: ALBUMIN 1.8 g/dl (3.4-5.0); ANION GAP 3 MMOL/L (8-16); CO2 32 mmol/L (21-32); GLUCOSE,RANDOM 195 mg/dL (74-106); MAGNESIUM 1.9 mg/dL (1.8-2.4)
[2021-08-01 07:37] LABS: CREATININE < 0.2 mg/dL (0.55-1.3); PHOSPHOROUS 2.4 mg/dL (2.5-4.9); SGOT/AST 16 U/L (15-37); SGPT/ALT 40 U/L (13-61)
[2021-08-01 07:38] LABS: BILIRUBIN,TOTAL 0.5 mg/dL (0.2-1); TOT PROT 4.5 g/dl (6.4-8.2)
[2021-08-01 07:40] LABS: ALK PHOS 86 U/L (45-117)
[2021-08-01] MEDS: GEMFIBROZIL 600 MG TABLET (FP) GT SCH ×2 (08:30→17:56)
[2021-08-01] MEDS: ATOVAQUONE 750 MG/5 ML (UNIT-DOSE PACKAGING) GT SCH (08:59)
[2021-08-01] MEDS: AMINO ACIDS/PROTEIN HYDROLYS 30 ML LIQUID.PKT PO SCH (08:59)
[2021-08-01] MEDS: ASCORBIC ACID 500 MG/5 ML UNIT DOSE CUP GT SCH ×2 (10:26→21:16)
[2021-08-01] MEDS: LEVOTHYROXINE SODIUM 100 MCG VIAL IVPUSH SCH (10:26)
[2021-08-01] MEDS: FERROUS SO4 300 MG/5 ML ORAL SOLN UNIT DOSE CUPS GT SCH (10:35)
[2021-08-01] MEDS: DEXAMETHASONE SOD PHOSPHATE 10 MG/1 ML VIAL IVPUSH SCH (10:35)
[2021-08-01] MEDS: LACTOBACILLUS ACIDOPHILUS 1 TABLET GT SCH (10:35)
[2021-08-01] MEDS: TENOFOVIR DISOPROXIL FUMARATE 300 MG TABLET GT SCH (10:36)
[2021-08-01] MEDS: ESCITALOPRAM OXALATE 10 MG TABLET GT SCH (10:36)
[2021-08-01] MEDS: ISONIAZID 300 MG TABLET (FP) GT SCH (10:36)
[2021-08-01] MEDS: ZINC SULFATE 220 MG CAPSULE (FP) GT SCH (10:36)
[2021-08-01] MEDS: FAMOTIDINE 20 MG/50 ML IVPB 20 MG/50 ML MG IVPB SCH ×2 (10:36→21:16)
[2021-08-01] MEDS: CALCIUM 500MG/VIT-D 200 UNITS COMBO TABLET (FP) GT SCH (10:36)
[2021-08-01] MEDS: CHOLECALCIFEROL (VIT D SOLUTION) 400 UNIT/1 ML DROPS GT SCH (10:37)
[2021-08-01] MEDS: FENTANYL NS IVPB 500 MCG/100 ML BAG IVPB SCH ×3 (10:37→21:15)
[2021-08-01] MEDS: NOREPINEPHRINE BITARTRATE 16,000 MCG in SODIUM CHLORIDE 484 ML IV SCH (18:05)
[2021-08-01] MEDS: MELATONIN 5 MG TABLETS PO SCH (21:16)
[2021-08-02] MEDS: DEXMEDETOMIDINE IN 0.9 % NACL 400 MCG/100 ML VIAL IVPB SCH ×2 (03:50→06:36)
[2021-08-02] MEDS: FENTANYL NS IVPB 500 MCG/100 ML BAG IVPB SCH ×4 (03:51→21:24)
[2021-08-02] MEDS: MIDAZOLAM IN 0.9 % SOD.CHLORID 100 MG/100 ML PLAST..BAG IVPB SCH ×3 (06:35→21:24)
[2021-08-02] MEDS: GEMFIBROZIL 600 MG TABLET (FP) GT SCH ×2 (06:36→16:45)
[2021-08-02] MEDS: INSULIN SLIDING SCALE (NOVOLOG) 1 VIAL SQ SCH ×4 (06:54→21:33)
[2021-08-02 07:21] LABS: BASO % 0.2 % (0-2.0); EOS % 0.1 % (0-4.5); HEMATOCRIT 21.3 % (35.4-49); LYMPH % 5.1 % (8-40); MCH 28.5 pg (25.7-33.7); MCHC 32.1 g/dl (32.0-35.9); MEAN CELL VOLUME 88.8 fl (80-96); MEAN PLT VOLUME 7.9 fl (7.5-11.1); MONO % 6.1 % (3.8-10.2); NEUT % 88.5 % (42.8-82.8); PLATELET COUNT 208 10^3/uL (134-434); RDW 17.4 % (11.9-15.9); WHITE BLOOD COUNT 4.7 K/mm3 (4.0-10.0)
[2021-08-02 07:29] LABS: HEMOGLOBIN 6.9 GM/dL (11.7-16.9)
[2021-08-02 07:58] LABS: ALBUMIN 1.7 g/dl (3.4-5.0); BLOOD UREA NITROGEN 27.2 mg/dL (7-18)
[2021-08-02 07:59] LABS: BILIRUBIN,TOTAL 0.4 mg/dL (0.2-1); CALCIUM 8.3 mg/dL (8.5-10.1); TOT PROT 4.3 g/dl (6.4-8.2)
[2021-08-02 08:00] LABS: MAGNESIUM 2.1 mg/dL (1.8-2.4)
[2021-08-02 08:01] LABS: CREATININE 0.3 mg/dL (0.55-1.3)
[2021-08-02] MEDS: ATOVAQUONE 750 MG/5 ML (UNIT-DOSE PACKAGING) GT SCH (09:00)
[2021-08-02] MEDS: AMINO ACIDS/PROTEIN HYDROLYS 30 ML LIQUID.PKT PO SCH (09:00)
[2021-08-02] MEDS: LACTOBACILLUS ACIDOPHILUS 1 TABLET GT SCH (10:37)
[2021-08-02] MEDS: ZINC SULFATE 220 MG CAPSULE (FP) GT SCH (10:38)
[2021-08-02] MEDS: ESCITALOPRAM OXALATE 10 MG TABLET GT SCH (10:38)
[2021-08-02] MEDS: FERROUS SO4 300 MG/5 ML ORAL SOLN UNIT DOSE CUPS GT SCH (10:38)
[2021-08-02] MEDS: DEXAMETHASONE SOD PHOSPHATE 10 MG/1 ML VIAL IVPUSH SCH (10:38)
[2021-08-02] MEDS: CHOLECALCIFEROL (VIT D SOLUTION) 400 UNIT/1 ML DROPS GT SCH (10:39)
[2021-08-02] MEDS: ISONIAZID 300 MG TABLET (FP) GT SCH (10:39)
[2021-08-02] MEDS: FAMOTIDINE 20 MG/50 ML IVPB 20 MG/50 ML MG IVPB SCH ×2 (10:39→21:33)
[2021-08-02] MEDS: ASCORBIC ACID 500 MG/5 ML UNIT DOSE CUP GT SCH ×2 (10:39→21:34)
[2021-08-02] MEDS: CALCIUM 500MG/VIT-D 200 UNITS COMBO TABLET (FP) GT SCH (10:39)
[2021-08-02] MEDS: TENOFOVIR DISOPROXIL FUMARATE 300 MG TABLET GT SCH (10:40)
[2021-08-02] MEDS: LEVOTHYROXINE SODIUM 100 MCG VIAL IVPUSH SCH (10:53)
[2021-08-02] MEDS: NOREPINEPHRINE BITARTRATE 16,000 MCG in SODIUM CHLORIDE 484 ML IV SCH (21:24)
[2021-08-02] MEDS: MELATONIN 5 MG TABLETS PO SCH (21:30)
[2021-08-02 23:10] LABS: BASO % 0.1 % (0-2.0); EOS % 0.2 % (0-4.5); HEMATOCRIT 25.8 % (35.4-49); HEMOGLOBIN 8.6 GM/dL (11.7-16.9); LYMPH % 9.7 % (8-40); MCH 28.6 pg (25.7-33.7); MCHC 33.3 g/dl (32.0-35.9); MEAN PLT VOLUME 7.5 fl (7.5-11.1); MONO % 3.3 % (3.8-10.2); NEUT % 86.7 % (42.8-82.8); PLATELET COUNT 188 10^3/uL (134-434)
[2021-08-03] MEDS ORDERED: ROCURONIUM BROMIDE 50 MG/5 ML SYRINGE IV ONE (04:57)
[2021-08-03] MEDS: DEXMEDETOMIDINE IN 0.9 % NACL 400 MCG/100 ML VIAL IVPB SCH ×2 (05:58→15:41)
[2021-08-03] MEDS: PROPOFOL 1,000,000 MCG/100 ML VIAL IVPB SCH ×2 (05:58→15:46)
[2021-08-03] MEDS ORDERED: SODIUM CHLORIDE 500 ML IV STA (06:58)
[2021-08-03] MEDS: VASOPRESSIN 40 UNITS in SODIUM CHLORIDE 40 UNITS/100 ML INFUS.BAG IVPB SCH ×2 (06:59→12:00)
[2021-08-03] MEDS: INSULIN SLIDING SCALE (NOVOLOG) 1 VIAL SQ SCH ×4 (07:00→23:38)
[2021-08-03] MEDS: PHENYLEPHRINE HCL 50,000 MCG in SODIUM CHLORIDE 50,000 MCG/500 ML INFUS.BAG IV SCH (08:00)
[2021-08-03 08:02] LABS: CALCIUM 8.3 mg/dL (8.5-10.1)
[2021-08-03 08:03] LABS: ALBUMIN 1.7 g/dl (3.4-5.0); BLOOD UREA NITROGEN 27.1 mg/dL (7-18); MAGNESIUM 1.7 mg/dL (1.8-2.4)
[2021-08-03 08:05] LABS: CREATININE 0.2 mg/dL (0.55-1.3)
[2021-08-03 08:06] LABS: BASO % 0.1 % (0-2.0); BILIRUBIN,TOTAL 0.6 mg/dL (0.2-1); EOS % 0.1 % (0-4.5); HEMATOCRIT 26.5 % (35.4-49); HEMOGLOBIN 8.9 GM/dL (11.7-16.9); LYMPH % 8.3 % (8-40); MCH 28.8 pg (25.7-33.7); MCHC 33.8 g/dl (32.0-35.9); MEAN CELL VOLUME 85.4 fl (80-96); MEAN PLT VOLUME 7.5 fl (7.5-11.1); MONO % 4.7 % (3.8-10.2); NEUT % 86.8 % (42.8-82.8); PHOSPHOROUS 1.7 mg/dL (2.5-4.9); PLATELET COUNT 193 10^3/uL (134-434); RDW 16.8 % (11.9-15.9); TOT PROT 4.2 g/dl (6.4-8.2); WHITE BLOOD COUNT 2.6 K/mm3 (4.0-10.0)
[2021-08-03] MEDS: GEMFIBROZIL 600 MG TABLET (FP) GT SCH ×2 (08:26→17:30)
[2021-08-03] MEDS: ATOVAQUONE 750 MG/5 ML (UNIT-DOSE PACKAGING) GT SCH (08:55)
[2021-08-03] MEDS: AMINO ACIDS/PROTEIN HYDROLYS 30 ML LIQUID.PKT PO SCH (08:56)
[2021-08-03] MEDS ORDERED: MEROPENEM 1 GM VIAL (RESTRICTED TO ID) IVPB ONE ×3 (09:29→21:32)
[2021-08-03] MEDS ORDERED: DEXTROSE 5%-WATER 100 ML IVPB ONE ×3 (09:29→21:32)
[2021-08-03] MEDS: TENOFOVIR DISOPROXIL FUMARATE 300 MG TABLET GT SCH (10:55)
[2021-08-03] MEDS: ISONIAZID 300 MG TABLET (FP) GT SCH (10:55)
[2021-08-03] MEDS: FERROUS SO4 300 MG/5 ML ORAL SOLN UNIT DOSE CUPS GT SCH (10:55)
[2021-08-03] MEDS: ESCITALOPRAM OXALATE 10 MG TABLET GT SCH (10:55)
[2021-08-03] MEDS: LEVOTHYROXINE SODIUM 100 MCG VIAL IVPUSH SCH (10:55)
[2021-08-03] MEDS: DEXAMETHASONE SOD PHOSPHATE 10 MG/1 ML VIAL IVPUSH SCH (10:55)
[2021-08-03] MEDS: CHOLECALCIFEROL (VIT D SOLUTION) 400 UNIT/1 ML DROPS GT SCH (10:55)
[2021-08-03] MEDS: CALCIUM 500MG/VIT-D 200 UNITS COMBO TABLET (FP) GT SCH (10:55)
[2021-08-03] MEDS: LACTOBACILLUS ACIDOPHILUS 1 TABLET GT SCH (10:55)
[2021-08-03] MEDS: ASCORBIC ACID 500 MG/5 ML UNIT DOSE CUP GT SCH ×2 (10:55→22:45)
[2021-08-03] MEDS: MEROPENEM 1 GM in DEXTROSE 5%-WATER 100 ML IVPB SCH ×2 (10:55→17:30)
[2021-08-03] MEDS: FAMOTIDINE 20 MG/50 ML IVPB 20 MG/50 ML MG IVPB SCH ×2 (10:55→22:45)
[2021-08-03] MEDS: ZINC SULFATE 220 MG CAPSULE (FP) GT SCH (10:55)
[2021-08-03] MEDS: FENTANYL NS IVPB 500 MCG/100 ML BAG IVPB SCH ×3 (11:07→20:27)
[2021-08-03] MEDS ORDERED: SODIUM PHOSPHATE - 15 MM in DEXTROSE 5%-WATER - 250 ML IVPB ONE (11:29)
[2021-08-03] MEDS ORDERED: MAGNESIUM SULF 50% (8.12 MEQ/2 ML-1 GM VIAL) IVPB ONE (11:29)
[2021-08-03] MEDS: NOREPINEPHRINE BITARTRATE 16,000 MCG in SODIUM CHLORIDE 484 ML IV SCH ×2 (15:42→20:27)
[2021-08-03] MEDS ORDERED: ACETAMINOPHEN 1000 MG/100 ML BAG IVPB ONE (19:17)
[2021-08-03] MEDS: MIDAZOLAM IN 0.9 % SOD.CHLORID 100 MG/100 ML PLAST..BAG IVPB SCH (20:27)
[2021-08-03] MEDS: MELATONIN 5 MG TABLETS PO SCH (23:00)
[2021-08-04] MEDS: MEROPENEM 1 GM in DEXTROSE 5%-WATER 100 ML IVPB SCH ×3 (02:11→17:43)
[2021-08-04] MEDS: PROPOFOL 1,000,000 MCG/100 ML VIAL IVPB SCH (06:44)
[2021-08-04] MEDS: VASOPRESSIN 40 UNITS in SODIUM CHLORIDE 40 UNITS/100 ML INFUS.BAG IVPB SCH (06:44)
[2021-08-04] MEDS: INSULIN SLIDING SCALE (NOVOLOG) 1 VIAL SQ SCH ×4 (06:45→22:13)
[2021-08-04] MEDS: DEXMEDETOMIDINE IN 0.9 % NACL 400 MCG/100 ML VIAL IVPB SCH (06:45)
[2021-08-04] MEDS ORDERED: LEVOTHYROXINE NA 125 MCG TABLET (FP) GT SCH (07:00)
[2021-08-04] MEDS ORDERED: LEVOTHYROXINE NA 125 MCG TABLET (FP) NGT SCH (07:00)
[2021-08-04 07:13] LABS: HEMATOCRIT 24.4 % (35.4-49); MCH 28.2 pg (25.7-33.7); MCHC 32.6 g/dl (32.0-35.9); MEAN CELL VOLUME 86.4 fl (80-96); MEAN PLT VOLUME 8.1 fl (7.5-11.1); PLATELET COUNT 180 10^3/uL (134-434); RBC 2.83 M/mm3 (4.00-5.60); RDW 17.4 % (11.9-15.9); WHITE BLOOD COUNT 6.2 K/mm3 (4.0-10.0)
[2021-08-04 07:18] LABS: ALBUMIN 1.6 g/dl (3.4-5.0); BLOOD UREA NITROGEN 26.1 mg/dL (7-18); CALCIUM 7.5 mg/dL (8.5-10.1)
[2021-08-04 07:19] LABS: MAGNESIUM 1.9 mg/dL (1.8-2.4)
[2021-08-04 07:21] LABS: CREATININE 0.2 mg/dL (0.55-1.3); PHOSPHOROUS 3.2 mg/dL (2.5-4.9)
[2021-08-04 07:23] LABS: BILIRUBIN,TOTAL 1.2 mg/dL (0.2-1); TOT PROT 4.2 g/dl (6.4-8.2)
[2021-08-04 09:18] LABS: EPI CELLS 32 /uL (0-25.1); HYALINE CASTS 8 /uL (0-3.1); URINE APPEARANCE CLOUDY; URINE BACTERIA 19 /uL (0-1359); URINE BILIRUBIN 1+ (NEGATIVE); URINE COLOR DK YELLOW; URINE GLUCOSE (UA) NEGATIVE (NEGATIVE); URINE KETONE NEGATIVE (NEGATIVE); URINE LEUK ESTERASE TRACE (NEGATIVE); URINE NITRITE NEGATIVE (NEGATIVE); URINE PROTEIN 2+ (NEGATIVE); URINE RBC 10475 /uL (0-23.9); URINE WBC 58 /uL (0-25.8)
[2021-08-04] MEDS ORDERED: MEROPENEM 1 GM VIAL (RESTRICTED TO ID) IVPB ONE ×2 (09:24→16:39)
[2021-08-04] MEDS ORDERED: DEXTROSE 5%-WATER 100 ML IVPB ONE ×2 (09:25→16:40)
[2021-08-04 09:32] LABS: ANISOCYTOSIS 0; MACROCYTOSIS 0; PLATELET ESTIMATE NORMAL
[2021-08-04] MEDS: ZINC SULFATE 220 MG CAPSULE (FP) GT SCH (09:33)
[2021-08-04] MEDS: GEMFIBROZIL 600 MG TABLET (FP) GT SCH ×2 (09:33→17:43)
[2021-08-04] MEDS: LACTOBACILLUS ACIDOPHILUS 1 TABLET GT SCH (09:33)
[2021-08-04] MEDS: ESCITALOPRAM OXALATE 10 MG TABLET GT SCH (09:33)
[2021-08-04] MEDS: DEXAMETHASONE SOD PHOSPHATE 4 MG/1 ML VIAL IVPUSH SCH (09:33)
[2021-08-04] MEDS: AMINO ACIDS/PROTEIN HYDROLYS 30 ML LIQUID.PKT PO SCH (09:33)
[2021-08-04] MEDS: CHOLECALCIFEROL (VIT D SOLUTION) 400 UNIT/1 ML DROPS GT SCH (09:42)
[2021-08-04] MEDS: ASCORBIC ACID 500 MG/5 ML UNIT DOSE CUP GT SCH ×3 (09:43→22:17)
[2021-08-04] MEDS: ATOVAQUONE 750 MG/5 ML (UNIT-DOSE PACKAGING) GT SCH (09:43)
[2021-08-04] MEDS: ISONIAZID 300 MG TABLET (FP) GT SCH (09:44)
[2021-08-04] MEDS: FERROUS SO4 300 MG/5 ML ORAL SOLN UNIT DOSE CUPS GT SCH (09:44)
[2021-08-04] MEDS: CALCIUM 500MG/VIT-D 200 UNITS COMBO TABLET (FP) GT SCH (09:44)
[2021-08-04] MEDS: TENOFOVIR DISOPROXIL FUMARATE 300 MG TABLET GT SCH (09:44)
[2021-08-04] MEDS: FAMOTIDINE 20 MG/50 ML IVPB 20 MG/50 ML MG IVPB SCH ×2 (11:03→21:37)
[2021-08-04] MEDS: PHENYLEPHRINE HCL 50,000 MCG in SODIUM CHLORIDE 50,000 MCG/500 ML INFUS.BAG IV SCH (14:56)
[2021-08-04] MEDS: FENTANYL NS IVPB 500 MCG/100 ML BAG IVPB SCH ×2 (14:59→20:20)
[2021-08-04] MEDS: MIDAZOLAM IN 0.9 % SOD.CHLORID 100 MG/100 ML PLAST..BAG IVPB SCH (21:35)
[2021-08-04] MEDS: MELATONIN 5 MG TABLETS PO SCH ×2 (21:36→22:17)
[2021-08-05] MEDS: MEROPENEM 1 GM in DEXTROSE 5%-WATER 100 ML IVPB SCH ×3 (02:50→17:32)
[2021-08-05] MEDS: FENTANYL NS IVPB 500 MCG/100 ML BAG IVPB SCH (03:00)
[2021-08-05] MEDS ORDERED: MEROPENEM 1 GM VIAL (RESTRICTED TO ID) IVPB ONE ×3 (04:48→17:04)
[2021-08-05] MEDS ORDERED: DEXTROSE 5%-WATER 100 ML IVPB ONE ×3 (04:48→17:04)
[2021-08-05] MEDS: NOREPINEPHRINE BITARTRATE 16,000 MCG in SODIUM CHLORIDE 484 ML IV SCH ×2 (05:06→07:39)
[2021-08-05] MEDS: PROPOFOL 1,000,000 MCG/100 ML VIAL IVPB SCH (05:11)
[2021-08-05] MEDS: VASOPRESSIN 40 UNITS in SODIUM CHLORIDE 40 UNITS/100 ML INFUS.BAG IVPB SCH (05:12)
[2021-08-05] MEDS: DEXMEDETOMIDINE IN 0.9 % NACL 400 MCG/100 ML VIAL IVPB SCH (05:15)
[2021-08-05] MEDS: INSULIN SLIDING SCALE (NOVOLOG) 1 VIAL SQ SCH ×4 (06:32→22:58)
[2021-08-05] MEDS: GEMFIBROZIL 600 MG TABLET (FP) GT SCH ×2 (06:32→17:32)
[2021-08-05] MEDS ORDERED: LEVOTHYROXINE NA 125 MCG TABLET (FP) PO SCH (07:05)
[2021-08-05 07:10] LABS: INR 1.27 (0.83-1.09); PROTHROMBIN TIME (PATIENT) 14.6 SEC (9.7-13.0)
[2021-08-05 07:22] LABS: CALCIUM 7.8 mg/dL (8.5-10.1)
[2021-08-05 07:23] LABS: ALBUMIN 1.6 g/dl (3.4-5.0); BLOOD UREA NITROGEN 29.1 mg/dL (7-18)
[2021-08-05 07:24] LABS: MAGNESIUM 1.8 mg/dL (1.8-2.4)
[2021-08-05 07:26] LABS: CREATININE 0.3 mg/dL (0.55-1.3); PHOSPHOROUS 3.5 mg/dL (2.5-4.9)
[2021-08-05 07:27] LABS: BILIRUBIN,TOTAL 1.3 mg/dL (0.2-1)
[2021-08-05 07:28] LABS: TOT PROT 4.3 g/dl (6.4-8.2)
[2021-08-05 07:39] LABS: MCH 28.5 pg (25.7-33.7); MCHC 33.4 g/dl (32.0-35.9); MEAN CELL VOLUME 85.2 fl (80-96); MEAN PLT VOLUME 8.3 fl (7.5-11.1); PLATELET COUNT 170 10^3/uL (134-434); RBC 2.81 M/mm3 (4.00-5.60); RDW 17.4 % (11.9-15.9); WHITE BLOOD COUNT 8.2 K/mm3 (4.0-10.0)
[2021-08-05] MEDS: PHENYLEPHRINE HCL 50,000 MCG in SODIUM CHLORIDE 50,000 MCG/500 ML INFUS.BAG IV SCH (08:37)
[2021-08-05] MEDS: LEVOTHYROXINE NA 125 MCG TABLET (FP) GT SCH (08:41)
[2021-08-05] MEDS: ATOVAQUONE 750 MG/5 ML (UNIT-DOSE PACKAGING) GT SCH (08:52)
[2021-08-05] MEDS: AMINO ACIDS/PROTEIN HYDROLYS 30 ML LIQUID.PKT PO SCH (08:53)
[2021-08-05] MEDS: LACTOBACILLUS ACIDOPHILUS 1 TABLET GT SCH (09:10)
[2021-08-05] MEDS: ESCITALOPRAM OXALATE 10 MG TABLET GT SCH (09:11)
[2021-08-05] MEDS: ISONIAZID 300 MG TABLET (FP) GT SCH (09:11)
[2021-08-05] MEDS: FERROUS SO4 300 MG/5 ML ORAL SOLN UNIT DOSE CUPS GT SCH (09:11)
[2021-08-05] MEDS: DEXAMETHASONE SOD PHOSPHATE 4 MG/1 ML VIAL IVPUSH SCH (09:11)
[2021-08-05] MEDS: ZINC SULFATE 220 MG CAPSULE (FP) GT SCH (09:12)
[2021-08-05] MEDS: CALCIUM 500MG/VIT-D 200 UNITS COMBO TABLET (FP) GT SCH (09:12)
[2021-08-05] MEDS: ASCORBIC ACID 500 MG/5 ML UNIT DOSE CUP GT SCH ×2 (09:13→22:47)
[2021-08-05] MEDS: TENOFOVIR DISOPROXIL FUMARATE 300 MG TABLET GT SCH (09:13)
[2021-08-05] MEDS: CHOLECALCIFEROL (VIT D SOLUTION) 400 UNIT/1 ML DROPS GT SCH (09:13)
[2021-08-05 09:24] LABS: ANISOCYTOSIS 1+; MACROCYTOSIS 0; OVALOCYTE 1+; PLATELET ESTIMATE NORMAL
[2021-08-05] MEDS: FAMOTIDINE 20 MG/50 ML IVPB 20 MG/50 ML MG IVPB SCH ×2 (09:55→22:43)
[2021-08-05] MEDS ORDERED: LEVOTHYROXINE SODIUM 100 MCG VIAL IVPUSH SCH (10:00)
[2021-08-05] MEDS ORDERED: HEPARIN NA (PORCINE) 5,000 UNITS/ML 1ML VIAL IVPUSH PRN ×2 (13:14)
[2021-08-05] MEDS ORDERED: HEPARIN - 25,000 UNIT in SODIUM CHLORIDE 495 ML IV SCH (13:15)
[2021-08-05 15:30] LABS: INR 1.16 (0.83-1.09); PROTHROMBIN TIME (PATIENT) 13.4 SEC (9.7-13.0)
[2021-08-05 15:33] LABS: ACTIVATED PTT 25.4 SECONDS (25.2-36.5)
[2021-08-05 20:41] LABS: HEMATOCRIT 20.7 % (35.4-49); MCH 27.9 pg (25.7-33.7); MCHC 32.8 g/dl (32.0-35.9); MEAN CELL VOLUME 85.3 fl (80-96); MEAN PLT VOLUME 8.7 fl (7.5-11.1); PLATELET COUNT 140 10^3/uL (134-434); RBC 2.43 M/mm3 (4.00-5.60); RDW 17.1 % (11.9-15.9); WHITE BLOOD COUNT 5.5 K/mm3 (4.0-10.0)
[2021-08-05 21:00] LABS: HEMOGLOBIN 6.8 GM/dL (11.7-16.9)
[2021-08-05] MEDS ORDERED: SODIUM CHLORIDE 0.9% 500 ML INFUS.BAG IV ONE (21:21)
[2021-08-05 22:03] LABS: ANISOCYTOSIS 1+; MACROCYTOSIS 1+; PLATELET ESTIMATE DECREASED
[2021-08-06] MEDS: NOREPINEPHRINE BITARTRATE 16,000 MCG in SODIUM CHLORIDE 484 ML IV SCH ×2 (01:06→21:01)
[2021-08-06] MEDS ORDERED: MEROPENEM 1 GM VIAL (RESTRICTED TO ID) IVPB ONE ×4 (01:36→23:16)
[2021-08-06] MEDS ORDERED: DEXTROSE 5%-WATER 100 ML IVPB ONE ×4 (01:36→23:16)
[2021-08-06] MEDS: MEROPENEM 1 GM in DEXTROSE 5%-WATER 100 ML IVPB SCH ×3 (01:38→18:51)
[2021-08-06] MEDS: PROPOFOL 1,000,000 MCG/100 ML VIAL IVPB SCH ×2 (05:15→18:51)
[2021-08-06] MEDS: FENTANYL NS IVPB 500 MCG/100 ML BAG IVPB SCH (05:15)
[2021-08-06 07:55] LABS: HEMATOCRIT 22.4 % (35.4-49); HEMOGLOBIN 7.6 GM/dL (11.7-16.9); MCH 28.4 pg (25.7-33.7); MCHC 33.8 g/dl (32.0-35.9); MEAN PLT VOLUME 8.4 fl (7.5-11.1); PLATELET COUNT 109 10^3/uL (134-434); RBC 2.66 M/mm3 (4.00-5.60); RDW 16.9 % (11.9-15.9)
[2021-08-06 08:08] LABS: CHLORIDE 102 mmol/L (98-107); SODIUM 136 mmol/L (136-145)
[2021-08-06 08:12] LABS: CALCIUM 7.8 mg/dL (8.5-10.1)
[2021-08-06 08:13] LABS: ALBUMIN 1.4 g/dl (3.4-5.0); ANION GAP 7 MMOL/L (8-16); BLOOD UREA NITROGEN 28.1 mg/dL (7-18); CO2 27 mmol/L (21-32); GLUCOSE,RANDOM 166 mg/dL (74-106); MAGNESIUM 1.9 mg/dL (1.8-2.4)
[2021-08-06 08:15] LABS: SGPT/ALT 20 U/L (13-61)
[2021-08-06 08:16] LABS: CREATININE < 0.2 mg/dL (0.55-1.3); PHOSPHOROUS 2.5 mg/dL (2.5-4.9); SGOT/AST 28 U/L (15-37)
[2021-08-06 08:17] LABS: BILIRUBIN,TOTAL 1.4 mg/dL (0.2-1); TOT PROT 3.7 g/dl (6.4-8.2)
[2021-08-06 08:18] LABS: ALK PHOS 66 U/L (45-117)
[2021-08-06 08:52] LABS: ANISOCYTOSIS 0; HELMET CELLS 0; HOWELL-JOLLY BODIES 0; MACROCYTOSIS 0; OVALOCYTE 0; PLATELET ESTIMATE DECREASED; ROULEAU 0; SICKELED CELLS 0; TARGET CELLS 0; TEAR DROP CELLS 0; TOXIC GRANULATION 0
[2021-08-06] MEDS: LEVOTHYROXINE NA 125 MCG TABLET (FP) GT SCH (08:55)
[2021-08-06] MEDS: ATOVAQUONE 750 MG/5 ML (UNIT-DOSE PACKAGING) GT SCH (09:24)
[2021-08-06] MEDS: AMINO ACIDS/PROTEIN HYDROLYS 30 ML LIQUID.PKT PO SCH (09:25)
[2021-08-06] MEDS: CHOLECALCIFEROL (VIT D SOLUTION) 400 UNIT/1 ML DROPS GT SCH (10:00)
[2021-08-06] MEDS: LACTOBACILLUS ACIDOPHILUS 1 TABLET GT SCH (10:25)
[2021-08-06] MEDS: DEXAMETHASONE SOD PHOSPHATE 4 MG/1 ML VIAL IVPUSH SCH (10:25)
[2021-08-06] MEDS: ZINC SULFATE 220 MG CAPSULE (FP) GT SCH (10:26)
[2021-08-06] MEDS: CALCIUM 500MG/VIT-D 200 UNITS COMBO TABLET (FP) GT SCH (10:26)
[2021-08-06] MEDS: ISONIAZID 300 MG TABLET (FP) GT SCH (10:26)
[2021-08-06] MEDS: FAMOTIDINE 20 MG/50 ML IVPB 20 MG/50 ML MG IVPB SCH (10:26)
[2021-08-06] MEDS: ESCITALOPRAM OXALATE 10 MG TABLET GT SCH (10:26)
[2021-08-06] MEDS: FERROUS SO4 300 MG/5 ML ORAL SOLN UNIT DOSE CUPS GT SCH (10:26)
[2021-08-06] MEDS: ASCORBIC ACID 500 MG/5 ML UNIT DOSE CUP GT SCH (10:27)
[2021-08-06] MEDS: TENOFOVIR DISOPROXIL FUMARATE 300 MG TABLET GT SCH (10:27)
[2021-08-06] MEDS: GEMFIBROZIL 600 MG TABLET (FP) GT SCH ×2 (11:24→18:51)
[2021-08-06] MEDS: INSULIN SLIDING SCALE (NOVOLOG) 1 VIAL SQ SCH ×3 (14:00→21:00)
[2021-08-06] MEDS ORDERED: PHENYLEPHRINE HCL 10 MG/1 ML SINGLE DOSE VIAL ONE (19:42)
[2021-08-06] MEDS: VASOPRESSIN 40 UNITS in SODIUM CHLORIDE 40 UNITS/100 ML INFUS.BAG IVPB SCH (22:05)
[2021-08-07] MEDS: FAMOTIDINE 20 MG/50 ML IVPB 20 MG/50 ML MG IVPB SCH ×3 (01:08→23:48)
[2021-08-07] MEDS: ASCORBIC ACID 500 MG/5 ML UNIT DOSE CUP GT SCH ×3 (01:08→23:48)
[2021-08-07] MEDS: MEROPENEM 1 GM in DEXTROSE 5%-WATER 100 ML IVPB SCH ×3 (01:10→17:50)
[2021-08-07] MEDS: INSULIN SLIDING SCALE (NOVOLOG) 1 VIAL SQ SCH ×3 (06:04→17:45)
[2021-08-07] MEDS: VASOPRESSIN 40 UNITS in SODIUM CHLORIDE 40 UNITS/100 ML INFUS.BAG IVPB SCH (06:04)
[2021-08-07] MEDS: PROPOFOL 1,000,000 MCG/100 ML VIAL IVPB SCH (06:04)
[2021-08-07] MEDS: FENTANYL NS IVPB 500 MCG/100 ML BAG IVPB SCH (06:04)
[2021-08-07] MEDS: LEVOTHYROXINE NA 125 MCG TABLET (FP) GT SCH (06:04)
[2021-08-07 08:04] LABS: HEMOGLOBIN 7.3 GM/dL (11.7-16.9); MCHC 33.1 g/dl (32.0-35.9); MEAN CELL VOLUME 87.6 fl (80-96); MEAN PLT VOLUME 8.1 fl (7.5-11.1); PLATELET COUNT 120 10^3/uL (134-434); RBC 2.51 M/mm3 (4.00-5.60); RDW 16.8 % (11.9-15.9); WHITE BLOOD COUNT 3.6 K/mm3 (4.0-10.0)
[2021-08-07] MEDS ORDERED: MEROPENEM 1 GM VIAL (RESTRICTED TO ID) IVPB ONE ×3 (09:08→21:17)
[2021-08-07] MEDS ORDERED: DEXTROSE 5%-WATER 100 ML IVPB ONE ×3 (09:09→21:17)
[2021-08-07 09:24] LABS: ANISOCYTOSIS 1+; MACROCYTOSIS 0; PLATELET ESTIMATE DECREASED
[2021-08-07] MEDS: ATOVAQUONE 750 MG/5 ML (UNIT-DOSE PACKAGING) GT SCH (09:29)
[2021-08-07] MEDS: FERROUS SO4 300 MG/5 ML ORAL SOLN UNIT DOSE CUPS GT SCH (09:29)
[2021-08-07] MEDS: CALCIUM 500MG/VIT-D 200 UNITS COMBO TABLET (FP) GT SCH (09:30)
[2021-08-07] MEDS: LACTOBACILLUS ACIDOPHILUS 1 TABLET GT SCH (09:32)
[2021-08-07] MEDS: AMINO ACIDS/PROTEIN HYDROLYS 30 ML LIQUID.PKT PO SCH (09:32)
[2021-08-07] MEDS: ZINC SULFATE 220 MG CAPSULE (FP) GT SCH (09:32)
[2021-08-07] MEDS: ESCITALOPRAM OXALATE 10 MG TABLET GT SCH (09:33)
[2021-08-07] MEDS: GEMFIBROZIL 600 MG TABLET (FP) GT SCH ×2 (09:33→17:45)
[2021-08-07] MEDS: CHOLECALCIFEROL (VIT D SOLUTION) 400 UNIT/1 ML DROPS GT SCH (09:33)
[2021-08-07] MEDS: DEXAMETHASONE SOD PHOSPHATE 4 MG/1 ML VIAL IVPUSH SCH (09:33)
[2021-08-07] MEDS: ISONIAZID 300 MG TABLET (FP) GT SCH (09:33)
[2021-08-07] MEDS: TENOFOVIR DISOPROXIL FUMARATE 300 MG TABLET GT SCH (09:34)
[2021-08-07 09:57] LABS: ALBUMIN 1.5 g/dl (3.4-5.0); BILIRUBIN,TOTAL 1.9 mg/dL (0.2-1); BLOOD UREA NITROGEN 24.8 mg/dL (7-18); CALCIUM 7.7 mg/dL (8.5-10.1); CREATININE 0.2 mg/dL (0.55-1.3); MAGNESIUM 1.8 mg/dL (1.8-2.4); TOT PROT 3.8 g/dl (6.4-8.2)
[2021-08-07] MEDS: NOREPINEPHRINE BITARTRATE 16,000 MCG in SODIUM CHLORIDE 484 ML IV SCH (17:53)
[2021-08-08] MEDS: INSULIN SLIDING SCALE (NOVOLOG) 1 VIAL SQ SCH ×5 (03:24→22:37)
[2021-08-08] MEDS: MEROPENEM 1 GM in DEXTROSE 5%-WATER 100 ML IVPB SCH ×3 (03:24→17:01)
[2021-08-08 06:43] LABS: HEMATOCRIT 23.9 % (35.4-49); HEMOGLOBIN 8.1 GM/dL (11.7-16.9); MCH 28.4 pg (25.7-33.7); MCHC 33.9 g/dl (32.0-35.9); MEAN CELL VOLUME 83.8 fl (80-96); MEAN PLT VOLUME 8.1 fl (7.5-11.1); PLATELET COUNT 124 10^3/uL (134-434); RBC 2.85 M/mm3 (4.00-5.60); RDW 16.6 % (11.9-15.9); WHITE BLOOD COUNT 6.5 K/mm3 (4.0-10.0)
[2021-08-08] MEDS: FENTANYL NS IVPB 500 MCG/100 ML BAG IVPB SCH ×3 (06:46→17:33)
[2021-08-08 06:50] LABS: CALCIUM 8.1 mg/dL (8.5-10.1)
[2021-08-08 06:51] LABS: ALBUMIN 1.6 g/dl (3.4-5.0); BLOOD UREA NITROGEN 17.9 mg/dL (7-18); MAGNESIUM 1.5 mg/dL (1.8-2.4)
[2021-08-08] MEDS: LEVOTHYROXINE NA 125 MCG TABLET (FP) GT SCH (06:52)
[2021-08-08] MEDS: VASOPRESSIN 40 UNITS in SODIUM CHLORIDE 40 UNITS/100 ML INFUS.BAG IVPB SCH (06:52)
[2021-08-08] MEDS: PROPOFOL 1,000,000 MCG/100 ML VIAL IVPB SCH ×2 (06:52→12:00)
[2021-08-08 06:54] LABS: CREATININE 0.2 mg/dL (0.55-1.3)
[2021-08-08 06:55] LABS: TOT PROT 3.9 g/dl (6.4-8.2)
[2021-08-08] MEDS: AMINO ACIDS/PROTEIN HYDROLYS 30 ML LIQUID.PKT PO SCH (08:44)
[2021-08-08] MEDS: ATOVAQUONE 750 MG/5 ML (UNIT-DOSE PACKAGING) GT SCH (08:44)
[2021-08-08] MEDS: GEMFIBROZIL 600 MG TABLET (FP) GT SCH ×2 (08:44→17:01)
[2021-08-08 09:19] LABS: ANISOCYTOSIS 1+; MACROCYTOSIS 0; PLATELET ESTIMATE DECREASED
[2021-08-08] MEDS ORDERED: MEROPENEM 1 GM VIAL (RESTRICTED TO ID) IVPB ONE ×2 (10:54→16:57)
[2021-08-08] MEDS ORDERED: DEXTROSE 5%-WATER 100 ML IVPB ONE ×2 (10:54→16:58)
[2021-08-08] MEDS: FAMOTIDINE 20 MG/50 ML IVPB 20 MG/50 ML MG IVPB SCH ×2 (10:57→21:54)
[2021-08-08] MEDS: LACTOBACILLUS ACIDOPHILUS 1 TABLET GT SCH (10:58)
[2021-08-08] MEDS: ESCITALOPRAM OXALATE 10 MG TABLET GT SCH (10:58)
[2021-08-08] MEDS: ZINC SULFATE 220 MG CAPSULE (FP) GT SCH (10:58)
[2021-08-08] MEDS: DEXAMETHASONE SOD PHOSPHATE 4 MG/1 ML VIAL IVPUSH SCH (10:59)
[2021-08-08] MEDS: ISONIAZID 300 MG TABLET (FP) GT SCH (11:00)
[2021-08-08] MEDS: TENOFOVIR DISOPROXIL FUMARATE 300 MG TABLET GT SCH (11:00)
[2021-08-08] MEDS: CALCIUM 500MG/VIT-D 200 UNITS COMBO TABLET (FP) GT SCH (11:00)
[2021-08-08] MEDS: ASCORBIC ACID 500 MG/5 ML UNIT DOSE CUP GT SCH ×2 (11:01→21:54)
[2021-08-08] MEDS: CHOLECALCIFEROL (VIT D SOLUTION) 400 UNIT/1 ML DROPS GT SCH (11:01)
[2021-08-08] MEDS: FERROUS SO4 300 MG/5 ML ORAL SOLN UNIT DOSE CUPS GT SCH (12:21)
[2021-08-09] MEDS ORDERED: SODIUM CHLORIDE 0.9% 500 ML INFUS.BAG IV ONE (01:18)
[2021-08-09] MEDS: NOREPINEPHRINE D5W PREMIX 16,000 MCG/500 ML BAG IVPB SCH (01:56)
[2021-08-09] MEDS ORDERED: MEROPENEM 1 GM VIAL (RESTRICTED TO ID) IVPB ONE ×3 (02:01→16:26)
[2021-08-09] MEDS ORDERED: DEXTROSE 5%-WATER 100 ML IVPB ONE ×3 (02:01→16:26)
[2021-08-09] MEDS: MEROPENEM 1 GM in DEXTROSE 5%-WATER 100 ML IVPB SCH ×3 (02:41→17:16)
[2021-08-09] MEDS: FENTANYL NS IVPB 500 MCG/100 ML BAG IVPB SCH ×3 (03:57→17:17)
[2021-08-09] MEDS: VASOPRESSIN 40 UNITS in SODIUM CHLORIDE 40 UNITS/100 ML INFUS.BAG IVPB SCH (05:00)
[2021-08-09] MEDS: PROPOFOL 1,000,000 MCG/100 ML VIAL IVPB SCH (05:15)
[2021-08-09] MEDS: INSULIN SLIDING SCALE (NOVOLOG) 1 VIAL SQ SCH ×4 (07:06→22:30)
[2021-08-09] MEDS: GEMFIBROZIL 600 MG TABLET (FP) GT SCH ×2 (07:07→16:34)
[2021-08-09] MEDS: LEVOTHYROXINE NA 125 MCG TABLET (FP) GT SCH (07:07)
[2021-08-09] MEDS: ATOVAQUONE 750 MG/5 ML (UNIT-DOSE PACKAGING) GT SCH (08:55)
[2021-08-09] MEDS: AMINO ACIDS/PROTEIN HYDROLYS 30 ML LIQUID.PKT PO SCH (08:55)
[2021-08-09] MEDS: LACTOBACILLUS ACIDOPHILUS 1 TABLET GT SCH (10:39)
[2021-08-09] MEDS: ESCITALOPRAM OXALATE 10 MG TABLET GT SCH (10:39)
[2021-08-09] MEDS: ZINC SULFATE 220 MG CAPSULE (FP) GT SCH (10:40)
[2021-08-09] MEDS: DEXAMETHASONE SOD PHOSPHATE 4 MG/1 ML VIAL IVPUSH SCH (10:40)
[2021-08-09] MEDS: FAMOTIDINE 20 MG/50 ML IVPB 20 MG/50 ML MG IVPB SCH ×2 (10:41→21:45)
[2021-08-09] MEDS: FERROUS SO4 300 MG/5 ML ORAL SOLN UNIT DOSE CUPS GT SCH (10:41)
[2021-08-09] MEDS: CALCIUM 500MG/VIT-D 200 UNITS COMBO TABLET (FP) GT SCH (10:42)
[2021-08-09] MEDS: ISONIAZID 300 MG TABLET (FP) GT SCH (10:42)
[2021-08-09] MEDS: TENOFOVIR DISOPROXIL FUMARATE 300 MG TABLET GT SCH (10:43)
[2021-08-09] MEDS: CHOLECALCIFEROL (VIT D SOLUTION) 400 UNIT/1 ML DROPS GT SCH (10:43)
[2021-08-09] MEDS: ASCORBIC ACID 500 MG/5 ML UNIT DOSE CUP GT SCH ×2 (10:43→21:45)
[2021-08-09 12:54] LABS: HEMATOCRIT 33.6 % (35.4-49); HEMOGLOBIN 10.7 GM/dL (11.7-16.9); MCH 27.3 pg (25.7-33.7); MCHC 31.9 g/dl (32.0-35.9); MEAN CELL VOLUME 85.6 fl (80-96); MEAN PLT VOLUME 8.4 fl (7.5-11.1); PLATELET COUNT 232 10^3/uL (134-434); RBC 3.93 M/mm3 (4.00-5.60); RDW 16.8 % (11.9-15.9); WHITE BLOOD COUNT 24.5 K/mm3 (4.0-10.0)
[2021-08-09 13:19] LABS: ALBUMIN 1.9 g/dl (3.4-5.0)
[2021-08-09 13:20] LABS: CALCIUM 8.2 mg/dL (8.5-10.1)
[2021-08-09 13:21] LABS: BLOOD UREA NITROGEN 17.2 mg/dL (7-18); MAGNESIUM 1.7 mg/dL (1.8-2.4)
[2021-08-09 13:23] LABS: TOT PROT 4.8 g/dl (6.4-8.2)
[2021-08-09 13:24] LABS: CREATININE 0.2 mg/dL (0.55-1.3); PHOSPHOROUS 2.6 mg/dL (2.5-4.9)
[2021-08-09] MEDS ORDERED: MAGNESIUM SULF 50% (8.12 MEQ/2 ML-1 GM VIAL) IVPB ONE (18:43)
[2021-08-10] MEDS ORDERED: MEROPENEM 1 GM VIAL (RESTRICTED TO ID) IVPB ONE ×3 (01:29→16:02)
[2021-08-10] MEDS ORDERED: DEXTROSE 5%-WATER 100 ML IVPB ONE ×3 (01:29→16:03)
[2021-08-10] MEDS: NOREPINEPHRINE D5W PREMIX 16,000 MCG/500 ML BAG IVPB SCH (01:30)
[2021-08-10] MEDS: MEROPENEM 1 GM in DEXTROSE 5%-WATER 100 ML IVPB SCH ×3 (01:40→17:10)
[2021-08-10] MEDS: VASOPRESSIN 40 UNITS in SODIUM CHLORIDE 40 UNITS/100 ML INFUS.BAG IVPB SCH (05:00)
[2021-08-10] MEDS: PROPOFOL 1,000,000 MCG/100 ML VIAL IVPB SCH ×3 (06:00→17:10)
[2021-08-10] MEDS: FENTANYL NS IVPB 500 MCG/100 ML BAG IVPB SCH ×3 (06:00→16:15)
[2021-08-10] MEDS: INSULIN SLIDING SCALE (NOVOLOG) 1 VIAL SQ SCH ×4 (06:15→22:19)
[2021-08-10] MEDS: LEVOTHYROXINE NA 125 MCG TABLET (FP) GT SCH (06:17)
[2021-08-10 06:56] LABS: HEMATOCRIT 32.5 % (35.4-49); HEMOGLOBIN 10.5 GM/dL (11.7-16.9); MCH 27.4 pg (25.7-33.7); MCHC 32.3 g/dl (32.0-35.9); MEAN CELL VOLUME 84.9 fl (80-96); MEAN PLT VOLUME 8.6 fl (7.5-11.1); PLATELET COUNT 224 10^3/uL (134-434); RBC 3.82 M/mm3 (4.00-5.60); RDW 16.8 % (11.9-15.9); WHITE BLOOD COUNT 23.2 K/mm3 (4.0-10.0)
[2021-08-10 07:01] LABS: INR 1.02 (0.83-1.09); PROTHROMBIN TIME (PATIENT) 11.7 SEC (9.7-13.0)
[2021-08-10 07:04] LABS: ACTIVATED PTT 30.3 SECONDS (25.2-36.5)
[2021-08-10] MEDS: GEMFIBROZIL 600 MG TABLET (FP) GT SCH ×2 (07:18→16:09)
[2021-08-10 07:27] LABS: ALBUMIN 1.5 g/dl (3.4-5.0); BLOOD UREA NITROGEN 14.9 mg/dL (7-18)
[2021-08-10 07:30] LABS: CREATININE 0.2 mg/dL (0.55-1.3); PHOSPHOROUS 2.1 mg/dL (2.5-4.9)
[2021-08-10 07:32] LABS: BILIRUBIN,TOTAL 1.4 mg/dL (0.2-1)
[2021-08-10] MEDS: NAPH,MB-DB/K PH,MBDB POWDER PACKET NGT SCH ×2 (08:53→10:15)
[2021-08-10] MEDS: AMINO ACIDS/PROTEIN HYDROLYS 30 ML LIQUID.PKT PO SCH (08:53)
[2021-08-10] MEDS: KCL 10 MEQ IVPB 10 MEQ/100 ML INFUS.BAG IVPB SCH ×2 (08:54→10:10)
[2021-08-10] MEDS: ATOVAQUONE 750 MG/5 ML (UNIT-DOSE PACKAGING) GT SCH (08:54)
[2021-08-10] MEDS: DEXAMETHASONE SOD PHOSPHATE 4 MG/1 ML VIAL IVPUSH SCH (09:00)
[2021-08-10] MEDS: LACTOBACILLUS ACIDOPHILUS 1 TABLET GT SCH (09:00)
[2021-08-10] MEDS: FERROUS SO4 300 MG/5 ML ORAL SOLN UNIT DOSE CUPS GT SCH (09:00)
[2021-08-10] MEDS: ISONIAZID 300 MG TABLET (FP) GT SCH (09:01)
[2021-08-10] MEDS: ZINC SULFATE 220 MG CAPSULE (FP) GT SCH (09:01)
[2021-08-10] MEDS: ESCITALOPRAM OXALATE 10 MG TABLET GT SCH (09:01)
[2021-08-10] MEDS: FAMOTIDINE 20 MG/50 ML IVPB 20 MG/50 ML MG IVPB SCH ×2 (09:02→21:56)
[2021-08-10] MEDS: TENOFOVIR DISOPROXIL FUMARATE 300 MG TABLET GT SCH (09:02)
[2021-08-10] MEDS: CHOLECALCIFEROL (VIT D SOLUTION) 400 UNIT/1 ML DROPS GT SCH (09:02)
[2021-08-10] MEDS: ASCORBIC ACID 500 MG/5 ML UNIT DOSE CUP GT SCH ×2 (09:02→21:56)
[2021-08-10 09:48] LABS: ANISOCYTOSIS 1+; MACROCYTOSIS 1+; PLATELET ESTIMATE NORMAL
[2021-08-10] MEDS ORDERED: NAPH,MB-DB/K PH,MBDB POWDER PACKET PO ONE (10:10)
[2021-08-10] MEDS ORDERED: ROCURONIUM BROMIDE 50 MG/5 ML VIAL IV ONE (11:00)
[2021-08-10] MEDS ORDERED: POTASSIUM PHOSPHATE 15 MM in SODIUM CHLORIDE 250 ML IVPB ONE (11:00)
[2021-08-10] MEDS: CALCIUM 500MG/VIT-D 200 UNITS COMBO TABLET (FP) GT SCH (11:41)
[2021-08-10] MEDS ORDERED: ROCURONIUM BROMIDE 50 MG/5 ML VIAL IVPUSH ONE (12:00)
[2021-08-11] MEDS ORDERED: MEROPENEM 1 GM VIAL (RESTRICTED TO ID) IVPB ONE ×3 (01:04→18:07)
[2021-08-11] MEDS ORDERED: DEXTROSE 5%-WATER 100 ML IVPB ONE ×3 (01:05→18:07)
[2021-08-11] MEDS: MEROPENEM 1 GM in DEXTROSE 5%-WATER 100 ML IVPB SCH ×3 (01:08→18:12)
[2021-08-11] MEDS: NOREPINEPHRINE D5W PREMIX 16,000 MCG/500 ML BAG IVPB SCH ×2 (01:30→18:13)
[2021-08-11] MEDS: VASOPRESSIN 40 UNITS in SODIUM CHLORIDE 40 UNITS/100 ML INFUS.BAG IVPB SCH (05:00)
[2021-08-11] MEDS: PROPOFOL 1,000,000 MCG/100 ML VIAL IVPB SCH (05:15)
[2021-08-11] MEDS: FENTANYL NS IVPB 500 MCG/100 ML BAG IVPB SCH ×3 (05:15→14:52)
[2021-08-11] MEDS ORDERED: LACTATED RINGERS SOLUTION 1000 ML INFUS.BAG IV ONE ×2 (06:24)
[2021-08-11] MEDS: LEVOTHYROXINE NA 125 MCG TABLET (FP) GT SCH (06:45)
[2021-08-11] MEDS: INSULIN SLIDING SCALE (NOVOLOG) 1 VIAL SQ SCH ×4 (06:45→22:55)
[2021-08-11] MEDS: GEMFIBROZIL 600 MG TABLET (FP) GT SCH ×2 (06:46→18:12)
[2021-08-11 07:18] LABS: HEMATOCRIT 32.7 % (35.4-49); HEMOGLOBIN 10.6 GM/dL (11.7-16.9); MCH 27.5 pg (25.7-33.7); MCHC 32.4 g/dl (32.0-35.9); MEAN CELL VOLUME 84.6 fl (80-96); MEAN PLT VOLUME 8.8 fl (7.5-11.1); PLATELET COUNT 282 10^3/uL (134-434); RBC 3.86 M/mm3 (4.00-5.60); RDW 17.2 % (11.9-15.9); WHITE BLOOD COUNT 29.3 K/mm3 (4.0-10.0)
[2021-08-11 07:39] LABS: CALCIUM 7.9 mg/dL (8.5-10.1)
[2021-08-11 07:40] LABS: ALBUMIN 1.4 g/dl (3.4-5.0); BLOOD UREA NITROGEN 21.8 mg/dL (7-18)
[2021-08-11 07:43] LABS: CREATININE 0.2 mg/dL (0.55-1.3); PHOSPHOROUS 4.1 mg/dL (2.5-4.9)
[2021-08-11 07:44] LABS: BILIRUBIN,TOTAL 1.4 mg/dL (0.2-1); TOT PROT 4.1 g/dl (6.4-8.2)
[2021-08-11] MEDS: FAMOTIDINE 20 MG/50 ML IVPB 20 MG/50 ML MG IVPB SCH ×2 (10:09→22:30)
[2021-08-11] MEDS: DEXAMETHASONE SOD PHOSPHATE 4 MG/1 ML VIAL IVPUSH SCH (10:13)
[2021-08-11] MEDS: ASCORBIC ACID 500 MG/5 ML UNIT DOSE CUP GT SCH ×2 (10:14→22:30)
[2021-08-11] MEDS: AMINO ACIDS/PROTEIN HYDROLYS 30 ML LIQUID.PKT PO SCH (10:14)
[2021-08-11] MEDS: ATOVAQUONE 750 MG/5 ML (UNIT-DOSE PACKAGING) GT SCH (10:14)
[2021-08-11] MEDS: ZINC SULFATE 220 MG CAPSULE (FP) GT SCH (10:15)
[2021-08-11] MEDS: LACTOBACILLUS ACIDOPHILUS 1 TABLET GT SCH (10:15)
[2021-08-11] MEDS: CALCIUM 500MG/VIT-D 200 UNITS COMBO TABLET (FP) GT SCH (10:16)
[2021-08-11] MEDS: ISONIAZID 300 MG TABLET (FP) GT SCH (10:16)
[2021-08-11] MEDS: ESCITALOPRAM OXALATE 10 MG TABLET GT SCH (10:16)
[2021-08-11] MEDS: TENOFOVIR DISOPROXIL FUMARATE 300 MG TABLET GT SCH (10:19)
[2021-08-11] MEDS: CHOLECALCIFEROL (VIT D SOLUTION) 400 UNIT/1 ML DROPS GT SCH (10:24)
[2021-08-11 10:50] LABS: ANISOCYTOSIS 0; HELMET CELLS 0; HOWELL-JOLLY BODIES 0; MACROCYTOSIS 0; OVALOCYTE 0; PLATELET ESTIMATE NORMAL; ROULEAU 0; SICKELED CELLS 0; TARGET CELLS 0; TEAR DROP CELLS 0; TOXIC GRANULATION 0
[2021-08-11] MEDS: FERROUS SO4 300 MG/5 ML ORAL SOLN UNIT DOSE CUPS GT SCH (10:50)
[2021-08-11] MEDS ORDERED: ENOXAPARIN NA (PORCINE) 40 MG/0.4 ML DISP.SYRIN SQ ONE (11:00)
[2021-08-11] MEDS ORDERED: VASOPRESSIN 20 UNITS/ML VIAL IV ONE (17:44)
[2021-08-11 19:51] LABS: PH,URINE 5.5 (5.0-8.0); URINE APPEARANCE CLEAR; URINE BILIRUBIN 1+ (NEGATIVE); URINE COLOR DK YELLOW; URINE GLUCOSE (UA) NEGATIVE (NEGATIVE); URINE KETONE NEGATIVE (NEGATIVE); URINE LEUK ESTERASE NEGATIVE (NEGATIVE); URINE NITRITE NEGATIVE (NEGATIVE); URINE PROTEIN TRACE (NEGATIVE); URINE UROBILINOGEN 0.2 mg/dL (0.2-1.0)
[2021-08-12] MEDS ORDERED: MEROPENEM 1 GM VIAL (RESTRICTED TO ID) IVPB ONE ×3 (01:16→17:03)
[2021-08-12] MEDS ORDERED: DEXTROSE 5%-WATER 100 ML IVPB ONE ×3 (01:16→17:03)
[2021-08-12] MEDS: NOREPINEPHRINE D5W PREMIX 16,000 MCG/500 ML BAG IVPB SCH (01:30)
[2021-08-12] MEDS: MEROPENEM 1 GM in DEXTROSE 5%-WATER 100 ML IVPB SCH ×3 (02:37→17:06)
[2021-08-12] MEDS: VASOPRESSIN 40 UNITS in SODIUM CHLORIDE 40 UNITS/100 ML INFUS.BAG IVPB SCH (05:00)
[2021-08-12] MEDS: FENTANYL NS IVPB 500 MCG/100 ML BAG IVPB SCH ×3 (05:15→22:16)
[2021-08-12] MEDS: PROPOFOL 1,000,000 MCG/100 ML VIAL IVPB SCH ×2 (05:15→19:49)
[2021-08-12] MEDS: LEVOTHYROXINE NA 125 MCG TABLET (FP) GT SCH (07:14)
[2021-08-12] MEDS: INSULIN SLIDING SCALE (NOVOLOG) 1 VIAL SQ SCH ×4 (07:14→22:13)
[2021-08-12] MEDS: GEMFIBROZIL 600 MG TABLET (FP) GT SCH ×2 (07:15→17:06)
[2021-08-12 08:22] LABS: HEMATOCRIT 30.2 % (35.4-49); HEMOGLOBIN 9.9 GM/dL (11.7-16.9); MCHC 32.8 g/dl (32.0-35.9); MEAN CELL VOLUME 85.3 fl (80-96); MEAN PLT VOLUME 8.7 fl (7.5-11.1); PLATELET COUNT 326 10^3/uL (134-434); RBC 3.54 M/mm3 (4.00-5.60); RDW 17.4 % (11.9-15.9); WHITE BLOOD COUNT 24.4 K/mm3 (4.0-10.0)
[2021-08-12 08:46] LABS: CALCIUM 7.6 mg/dL (8.5-10.1)
[2021-08-12 08:47] LABS: ALBUMIN 1.3 g/dl (3.4-5.0)
[2021-08-12 08:50] LABS: CREATININE 0.2 mg/dL (0.55-1.3); PHOSPHOROUS 3.5 mg/dL (2.5-4.9)
[2021-08-12 08:52] LABS: BILIRUBIN,TOTAL 1.1 mg/dL (0.2-1)
[2021-08-12] MEDS: AMINO ACIDS/PROTEIN HYDROLYS 30 ML LIQUID.PKT PO SCH (09:20)
[2021-08-12] MEDS: FAMOTIDINE 20 MG/50 ML IVPB 20 MG/50 ML MG IVPB SCH ×2 (09:20→22:15)
[2021-08-12] MEDS: DEXAMETHASONE SOD PHOSPHATE 4 MG/1 ML VIAL IVPUSH SCH (09:21)
[2021-08-12] MEDS: LACTOBACILLUS ACIDOPHILUS 1 TABLET GT SCH (09:21)
[2021-08-12] MEDS: ISONIAZID 300 MG TABLET (FP) GT SCH (09:23)
[2021-08-12] MEDS: FERROUS SO4 300 MG/5 ML ORAL SOLN UNIT DOSE CUPS GT SCH (09:23)
[2021-08-12] MEDS: ATOVAQUONE 750 MG/5 ML (UNIT-DOSE PACKAGING) GT SCH (09:24)
[2021-08-12] MEDS: ZINC SULFATE 220 MG CAPSULE (FP) GT SCH (09:25)
[2021-08-12] MEDS: TENOFOVIR DISOPROXIL FUMARATE 300 MG TABLET GT SCH (09:25)
[2021-08-12] MEDS: CALCIUM 500MG/VIT-D 200 UNITS COMBO TABLET (FP) GT SCH (09:25)
[2021-08-12] MEDS: ESCITALOPRAM OXALATE 10 MG TABLET GT SCH (09:25)
[2021-08-12] MEDS: ASCORBIC ACID 500 MG/5 ML UNIT DOSE CUP GT SCH ×2 (09:26→22:15)
[2021-08-12] MEDS: CHOLECALCIFEROL (VIT D SOLUTION) 400 UNIT/1 ML DROPS GT SCH (09:26)
[2021-08-12] MEDS ORDERED: METOPROLOL TARTRATE 5 MG/5 ML VIAL IVPUSH ONE (10:38)
[2021-08-12 11:41] LABS: ANISOCYTOSIS 1+; MACROCYTOSIS 0; PLATELET ESTIMATE NORMAL; TEAR DROP CELLS 1+; TOXIC GRANULATION 2+
[2021-08-12] MEDS ORDERED: OCULAR LUBRICANT OPHTHALMIC OINTMENT 7 GM TUBE OU PRN (22:04)
[2021-08-13] MEDS ORDERED: DEXTROSE 5%-WATER 100 ML IVPB ONE ×3 (01:55→18:00)
[2021-08-13] MEDS ORDERED: MEROPENEM 1 GM VIAL (RESTRICTED TO ID) IVPB ONE ×3 (01:55→18:00)
[2021-08-13] MEDS: PROPOFOL 1,000,000 MCG/100 ML VIAL IVPB SCH ×3 (02:04→22:12)
[2021-08-13] MEDS: MEROPENEM 1 GM in DEXTROSE 5%-WATER 100 ML IVPB SCH ×3 (02:08→18:02)
[2021-08-13] MEDS: FENTANYL NS IVPB 500 MCG/100 ML BAG IVPB SCH ×2 (05:13→19:20)
[2021-08-13] MEDS: INSULIN SLIDING SCALE (NOVOLOG) 1 VIAL SQ SCH ×4 (06:15→22:11)
[2021-08-13] MEDS: LEVOTHYROXINE NA 125 MCG TABLET (FP) GT SCH (06:16)
[2021-08-13 07:02] LABS: HEMATOCRIT 27.8 % (35.4-49); HEMOGLOBIN 9.1 GM/dL (11.7-16.9); MCH 28.2 pg (25.7-33.7); MCHC 32.9 g/dl (32.0-35.9); MEAN CELL VOLUME 85.6 fl (80-96); MEAN PLT VOLUME 8.3 fl (7.5-11.1); PLATELET COUNT 352 10^3/uL (134-434); RBC 3.24 M/mm3 (4.00-5.60); WHITE BLOOD COUNT 18.8 K/mm3 (4.0-10.0)
[2021-08-13 07:20] LABS: CALCIUM 7.6 mg/dL (8.5-10.1)
[2021-08-13 07:21] LABS: ALBUMIN 1.3 g/dl (3.4-5.0); BLOOD UREA NITROGEN 27.6 mg/dL (7-18); MAGNESIUM 1.9 mg/dL (1.8-2.4)
[2021-08-13 07:23] LABS: CREATININE 0.2 mg/dL (0.55-1.3)
[2021-08-13 07:24] LABS: PHOSPHOROUS 2.8 mg/dL (2.5-4.9)
[2021-08-13 07:25] LABS: BILIRUBIN,TOTAL 0.8 mg/dL (0.2-1)
[2021-08-13 08:40] LABS: ANISOCYTOSIS 2+; MACROCYTOSIS 0; PLATELET ESTIMATE NORMAL; TEAR DROP CELLS 1+
[2021-08-13] MEDS: FAMOTIDINE 20 MG/50 ML IVPB 20 MG/50 ML MG IVPB SCH ×2 (09:39→22:06)
[2021-08-13] MEDS: AMINO ACIDS/PROTEIN HYDROLYS 30 ML LIQUID.PKT PO SCH (09:39)
[2021-08-13] MEDS: ASCORBIC ACID 500 MG/5 ML UNIT DOSE CUP GT SCH ×2 (09:40→22:06)
[2021-08-13] MEDS: GEMFIBROZIL 600 MG TABLET (FP) GT SCH ×2 (09:40→17:42)
[2021-08-13] MEDS: ESCITALOPRAM OXALATE 10 MG TABLET GT SCH (09:40)
[2021-08-13] MEDS: ZINC SULFATE 220 MG CAPSULE (FP) GT SCH (09:41)
[2021-08-13] MEDS: LACTOBACILLUS ACIDOPHILUS 1 TABLET GT SCH (09:41)
[2021-08-13] MEDS: DEXAMETHASONE SOD PHOSPHATE 10 MG/1 ML VIAL IVPUSH SCH (09:41)
[2021-08-13] MEDS: FERROUS SO4 300 MG/5 ML ORAL SOLN UNIT DOSE CUPS GT SCH (09:41)
[2021-08-13] MEDS: CHOLECALCIFEROL (VIT D SOLUTION) 400 UNIT/1 ML DROPS GT SCH (09:41)
[2021-08-13] MEDS: ISONIAZID 300 MG TABLET (FP) GT SCH (09:44)
[2021-08-13] MEDS: TENOFOVIR DISOPROXIL FUMARATE 300 MG TABLET GT SCH (09:44)
[2021-08-13] MEDS: CALCIUM 500MG/VIT-D 200 UNITS COMBO TABLET (FP) GT SCH (09:44)
[2021-08-13] MEDS: ATOVAQUONE 750 MG/5 ML (UNIT-DOSE PACKAGING) GT SCH (09:50)
[2021-08-13] MEDS: ENOXAPARIN NA (PORCINE) 40 MG/0.4 ML DISP.SYRIN SQ SCH (12:30)
[2021-08-13] MEDS: NOREPINEPHRINE D5W PREMIX 16,000 MCG/500 ML BAG IVPB SCH (22:05)
[2021-08-13] MEDS ORDERED: METOCLOPRAMIDE HCL INJECTION 10 MG/2 ML VIAL IVPB ONE (22:35)
[2021-08-14] MEDS ORDERED: MEROPENEM 1 GM VIAL (RESTRICTED TO ID) IVPB ONE ×3 (01:17→17:42)
[2021-08-14] MEDS ORDERED: DEXTROSE 5%-WATER 100 ML IVPB ONE ×3 (01:17→17:42)
[2021-08-14] MEDS: MEROPENEM 1 GM in DEXTROSE 5%-WATER 100 ML IVPB SCH ×3 (01:19→17:43)
[2021-08-14] MEDS: FENTANYL NS IVPB 500 MCG/100 ML BAG IVPB SCH ×2 (03:40→10:45)
[2021-08-14] MEDS: LEVOTHYROXINE NA 125 MCG TABLET (FP) GT SCH (06:18)
[2021-08-14] MEDS: INSULIN SLIDING SCALE (NOVOLOG) 1 VIAL SQ SCH ×4 (06:18→21:08)
[2021-08-14] MEDS ORDERED: METOPROLOL TARTRATE 5 MG/5 ML VIAL IVPUSH PRN (06:28)
[2021-08-14 07:16] LABS: HEMATOCRIT 27.1 % (35.4-49); HEMOGLOBIN 9.1 GM/dL (11.7-16.9); MCH 29.6 pg (25.7-33.7); MCHC 33.7 g/dl (32.0-35.9); MEAN CELL VOLUME 87.7 fl (80-96); MEAN PLT VOLUME 8.3 fl (7.5-11.1); PLATELET COUNT 376 10^3/uL (134-434); RBC 3.09 M/mm3 (4.00-5.60); RDW 17.3 % (11.9-15.9); WHITE BLOOD COUNT 15.5 K/mm3 (4.0-10.0)
[2021-08-14 07:35] LABS: CHLORIDE 104 mmol/L (98-107); SODIUM 140 mmol/L (136-145)
[2021-08-14 07:38] LABS: BLOOD UREA NITROGEN 19.4 mg/dL (7-18); CALCIUM 7.8 mg/dL (8.5-10.1)
[2021-08-14 07:39] LABS: ALBUMIN 1.4 g/dl (3.4-5.0); ANION GAP 3 MMOL/L (8-16); CO2 32 mmol/L (21-32); GLUCOSE,RANDOM 101 mg/dL (74-106); MAGNESIUM 1.8 mg/dL (1.8-2.4)
[2021-08-14 07:41] LABS: SGPT/ALT 14 U/L (13-61)
[2021-08-14 07:42] LABS: PHOSPHOROUS 2.1 mg/dL (2.5-4.9); SGOT/AST 38 U/L (15-37)
[2021-08-14 07:43] LABS: BILIRUBIN,TOTAL 0.9 mg/dL (0.2-1); TOT PROT 4.2 g/dl (6.4-8.2)
[2021-08-14 07:44] LABS: ALK PHOS 170 U/L (45-117)
[2021-08-14 08:01] LABS: CREATININE < 0.2 mg/dL (0.55-1.3)
[2021-08-14] MEDS: BANATROL PLUS POWDER PACKET PO SCH ×3 (08:30→21:04)
[2021-08-14 10:54] LABS: ANISOCYTOSIS 2+; MACROCYTOSIS 0; PLATELET ESTIMATE NORMAL; ROULEAU 1+
[2021-08-14] MEDS: PROPOFOL 1,000,000 MCG/100 ML VIAL IVPB SCH (11:00)
[2021-08-14] MEDS: FERROUS SO4 300 MG/5 ML ORAL SOLN UNIT DOSE CUPS GT SCH (11:32)
[2021-08-14] MEDS: ENOXAPARIN NA (PORCINE) 40 MG/0.4 ML DISP.SYRIN SQ SCH ×2 (11:32→21:04)
[2021-08-14] MEDS: ASCORBIC ACID 500 MG/5 ML UNIT DOSE CUP GT SCH ×2 (11:32→21:02)
[2021-08-14] MEDS: ESCITALOPRAM OXALATE 10 MG TABLET GT SCH (11:32)
[2021-08-14] MEDS: ATOVAQUONE 750 MG/5 ML (UNIT-DOSE PACKAGING) GT SCH (11:32)
[2021-08-14] MEDS: LACTOBACILLUS ACIDOPHILUS 1 TABLET GT SCH (11:33)
[2021-08-14] MEDS: DEXAMETHASONE SOD PHOSPHATE 10 MG/1 ML VIAL IVPUSH SCH (11:33)
[2021-08-14] MEDS: GEMFIBROZIL 600 MG TABLET (FP) GT SCH ×2 (11:33→17:43)
[2021-08-14] MEDS: ZINC SULFATE 220 MG CAPSULE (FP) GT SCH (11:33)
[2021-08-14] MEDS: AMINO ACIDS/PROTEIN HYDROLYS 30 ML LIQUID.PKT PO SCH (11:33)
[2021-08-14] MEDS: CALCIUM 500MG/VIT-D 200 UNITS COMBO TABLET (FP) GT SCH (11:33)
[2021-08-14] MEDS: ISONIAZID 300 MG TABLET (FP) GT SCH (11:38)
[2021-08-14] MEDS: FAMOTIDINE 20 MG/50 ML IVPB 20 MG/50 ML MG IVPB SCH ×2 (11:40→21:03)
[2021-08-14] MEDS: NOREPINEPHRINE D5W PREMIX 16,000 MCG/500 ML BAG IVPB SCH ×3 (11:40→13:33)
[2021-08-14] MEDS: TENOFOVIR DISOPROXIL FUMARATE 300 MG TABLET GT SCH (11:40)
[2021-08-14] MEDS ORDERED: AMIODARONE IN DEXTROSE,ISO-OSM 150 MG/100 ML BAG IVPB ONE (11:57)
[2021-08-14] MEDS ORDERED: AMIODARONE IN DEXTROSE,ISO-OSM 360 MG/200 ML BAG IVPB ONE (11:58)
[2021-08-14] MEDS: CHOLECALCIFEROL (VIT D SOLUTION) 400 UNIT/1 ML DROPS GT SCH (12:00)
[2021-08-14] MEDS ORDERED: FUROSEMIDE 40 MG/4 ML INJECTABLE VIAL IVPUSH ONE (12:25)
[2021-08-14] MEDS ORDERED: ALBUMIN HUMAN 25% 12.5 GM/50 ML VIAL IV SCH (12:30)
[2021-08-14] MEDS: methaDONE HCL 10 MG TABLET NGT SCH ×2 (13:00→21:02)
[2021-08-14] MEDS: MIDODRINE HCL 5 MG TABLET GT SCH ×2 (16:01→18:25)
[2021-08-14] MEDS ORDERED: AMIODARONE IN DEXTROSE,ISO-OSM 360 MG/200 ML BAG ONE (17:54)
[2021-08-14] MEDS ORDERED: AMIODARONE IN DEXTROSE,ISO-OSM 360 MG/200 ML BAG IVPB SCH (18:15)
[2021-08-15] MEDS ORDERED: DEXTROSE 5%-WATER 100 ML IVPB ONE ×3 (00:01→18:29)
[2021-08-15] MEDS ORDERED: VASOPRESSIN 40 UNITS/100 ML BAG IV SCH (01:00)
[2021-08-15] MEDS: MEROPENEM 1 GM in DEXTROSE 5%-WATER 100 ML IVPB SCH ×3 (01:11→18:34)
[2021-08-15] MEDS: NOREPINEPHRINE D5W PREMIX 16,000 MCG/500 ML BAG IVPB SCH (01:52)
[2021-08-15] MEDS: methaDONE HCL 10 MG TABLET NGT SCH ×3 (05:07→19:59)
[2021-08-15] MEDS: BANATROL PLUS POWDER PACKET PO SCH ×3 (05:07→22:14)
[2021-08-15] MEDS: LEVOTHYROXINE NA 125 MCG TABLET (FP) GT SCH (06:08)
[2021-08-15] MEDS: INSULIN SLIDING SCALE (NOVOLOG) 1 VIAL SQ SCH ×4 (06:08→22:16)
[2021-08-15 07:21] LABS: HEMATOCRIT 23.5 % (35.4-49); HEMOGLOBIN 7.7 GM/dL (11.7-16.9); MCH 28.8 pg (25.7-33.7); MCHC 32.8 g/dl (32.0-35.9); MEAN CELL VOLUME 87.8 fl (80-96); MEAN PLT VOLUME 8.1 fl (7.5-11.1); PLATELET COUNT 325 10^3/uL (134-434); RBC 2.68 M/mm3 (4.00-5.60); RDW 16.6 % (11.9-15.9); WHITE BLOOD COUNT 11.6 K/mm3 (4.0-10.0)
[2021-08-15 07:43] LABS: BLOOD UREA NITROGEN 21.4 mg/dL (7-18); CALCIUM 7.6 mg/dL (8.5-10.1); MAGNESIUM 1.7 mg/dL (1.8-2.4)
[2021-08-15 07:47] LABS: CREATININE 0.2 mg/dL (0.55-1.3)
[2021-08-15 07:48] LABS: PHOSPHOROUS 2.5 mg/dL (2.5-4.9)
[2021-08-15] MEDS ORDERED: FUROSEMIDE 40 MG/4 ML INJECTABLE VIAL IVPUSH ONE (08:21)
[2021-08-15] MEDS ORDERED: MEROPENEM 1 GM VIAL (RESTRICTED TO ID) IVPB ONE ×3 (09:52→18:29)
[2021-08-15] MEDS: FAMOTIDINE 20 MG/50 ML IVPB 20 MG/50 ML MG IVPB SCH ×2 (09:57→22:18)
[2021-08-15] MEDS: AMINO ACIDS/PROTEIN HYDROLYS 30 ML LIQUID.PKT PO SCH (09:57)
[2021-08-15] MEDS: FERROUS SO4 300 MG/5 ML ORAL SOLN UNIT DOSE CUPS GT SCH (09:58)
[2021-08-15] MEDS: ATOVAQUONE 750 MG/5 ML (UNIT-DOSE PACKAGING) GT SCH (09:58)
[2021-08-15] MEDS: GEMFIBROZIL 600 MG TABLET (FP) GT SCH ×2 (09:58→18:34)
[2021-08-15] MEDS: AMIODARONE HCL 200 MG TABLET PO SCH ×2 (09:58→22:15)
[2021-08-15] MEDS: LACTOBACILLUS ACIDOPHILUS 1 TABLET GT SCH (09:58)
[2021-08-15] MEDS: MIDODRINE HCL 5 MG TABLET GT SCH ×3 (09:58→18:34)
[2021-08-15] MEDS: CALCIUM 500MG/VIT-D 200 UNITS COMBO TABLET (FP) GT SCH (09:58)
[2021-08-15] MEDS: ESCITALOPRAM OXALATE 10 MG TABLET GT SCH (09:59)
[2021-08-15] MEDS: ENOXAPARIN NA (PORCINE) 40 MG/0.4 ML DISP.SYRIN SQ SCH ×2 (09:59→22:15)
[2021-08-15] MEDS: ASCORBIC ACID 500 MG/5 ML UNIT DOSE CUP GT SCH ×2 (09:59→22:18)
[2021-08-15] MEDS: CHOLECALCIFEROL (VIT D SOLUTION) 400 UNIT/1 ML DROPS GT SCH (09:59)
[2021-08-15] MEDS: ZINC SULFATE 220 MG CAPSULE (FP) GT SCH (09:59)
[2021-08-15] MEDS: DEXAMETHASONE SOD PHOSPHATE 10 MG/1 ML VIAL IVPUSH SCH (10:00)
[2021-08-15] MEDS: TENOFOVIR DISOPROXIL FUMARATE 300 MG TABLET GT SCH (10:01)
[2021-08-15] MEDS: ISONIAZID 300 MG TABLET (FP) GT SCH (10:01)
[2021-08-15] MEDS: ALBUMIN HUMAN 25% 12.5 GM/50 ML VIAL IV SCH ×2 (10:03→13:12)
[2021-08-15 16:55] LABS: HEMATOCRIT 23.2 % (35.4-49); HEMOGLOBIN 7.5 GM/dL (11.7-16.9); MCH 27.7 pg (25.7-33.7); MCHC 32.3 g/dl (32.0-35.9); MEAN CELL VOLUME 85.6 fl (80-96); MEAN PLT VOLUME 7.7 fl (7.5-11.1); PLATELET COUNT 353 10^3/uL (134-434); RBC 2.71 M/mm3 (4.00-5.60); RDW 17.7 % (11.9-15.9); WHITE BLOOD COUNT 14.8 K/mm3 (4.0-10.0)
[2021-08-16] MEDS: MEROPENEM 1 GM in DEXTROSE 5%-WATER 100 ML IVPB SCH ×3 (01:13→17:52)
[2021-08-16] MEDS ORDERED: MEROPENEM 1 GM VIAL (RESTRICTED TO ID) IVPB ONE ×3 (01:15→16:25)
[2021-08-16] MEDS ORDERED: DEXTROSE 5%-WATER 100 ML IVPB ONE ×3 (01:15→16:25)
[2021-08-16] MEDS: methaDONE HCL 10 MG TABLET NGT SCH ×3 (04:30→21:29)
[2021-08-16] MEDS: INSULIN SLIDING SCALE (NOVOLOG) 1 VIAL SQ SCH ×4 (06:13→21:29)
[2021-08-16] MEDS: LEVOTHYROXINE NA 125 MCG TABLET (FP) GT SCH (06:13)
[2021-08-16] MEDS: BANATROL PLUS POWDER PACKET PO SCH ×3 (06:13→21:30)
[2021-08-16] MEDS: GEMFIBROZIL 600 MG TABLET (FP) GT SCH ×2 (06:30→17:52)
[2021-08-16 07:35] LABS: HEMATOCRIT 22.9 % (35.4-49); HEMOGLOBIN 7.3 GM/dL (11.7-16.9); MCH 28.2 pg (25.7-33.7); MEAN CELL VOLUME 88.2 fl (80-96); MEAN PLT VOLUME 7.9 fl (7.5-11.1); PLATELET COUNT 338 10^3/uL (134-434); RBC 2.59 M/mm3 (4.00-5.60); RDW 17.3 % (11.9-15.9); WHITE BLOOD COUNT 11.4 K/mm3 (4.0-10.0)
[2021-08-16 08:00] LABS: CHLORIDE 100 mmol/L (98-107); SODIUM 139 mmol/L (136-145)
[2021-08-16 08:05] LABS: ANION GAP 2 MMOL/L (8-16); BLOOD UREA NITROGEN 18.3 mg/dL (7-18); CALCIUM 8.7 mg/dL (8.5-10.1); CO2 37 mmol/L (21-32); GLUCOSE,RANDOM 163 mg/dL (74-106); MAGNESIUM 1.9 mg/dL (1.8-2.4)
[2021-08-16 08:09] LABS: PHOSPHOROUS 2.6 mg/dL (2.5-4.9)
[2021-08-16 08:28] LABS: CREATININE < 0.2 mg/dL (0.55-1.3)
[2021-08-16] MEDS: AMINO ACIDS/PROTEIN HYDROLYS 30 ML LIQUID.PKT PO SCH (08:58)
[2021-08-16] MEDS: ATOVAQUONE 750 MG/5 ML (UNIT-DOSE PACKAGING) GT SCH (08:59)
[2021-08-16] MEDS: FERROUS SO4 300 MG/5 ML ORAL SOLN UNIT DOSE CUPS GT SCH (09:00)
[2021-08-16] MEDS: CALCIUM 500MG/VIT-D 200 UNITS COMBO TABLET (FP) GT SCH (09:00)
[2021-08-16] MEDS: ASCORBIC ACID 500 MG/5 ML UNIT DOSE CUP GT SCH ×2 (09:00→22:46)
[2021-08-16] MEDS: AMIODARONE HCL 200 MG TABLET PO SCH ×2 (09:01→21:29)
[2021-08-16] MEDS: MIDODRINE HCL 5 MG TABLET GT SCH ×3 (09:01→17:49)
[2021-08-16] MEDS: CHOLECALCIFEROL (VIT D SOLUTION) 400 UNIT/1 ML DROPS GT SCH (09:01)
[2021-08-16] MEDS: ZINC SULFATE 220 MG CAPSULE (FP) GT SCH (09:01)
[2021-08-16] MEDS: ENOXAPARIN NA (PORCINE) 40 MG/0.4 ML DISP.SYRIN SQ SCH (09:01)
[2021-08-16] MEDS: ESCITALOPRAM OXALATE 10 MG TABLET GT SCH (09:01)
[2021-08-16] MEDS: FAMOTIDINE 20 MG/50 ML IVPB 20 MG/50 ML MG IVPB SCH ×2 (09:02→21:30)
[2021-08-16] MEDS: TENOFOVIR DISOPROXIL FUMARATE 300 MG TABLET GT SCH (09:02)
[2021-08-16] MEDS: ISONIAZID 300 MG TABLET (FP) GT SCH (09:02)
[2021-08-16] MEDS: LACTOBACILLUS ACIDOPHILUS 1 TABLET GT SCH (09:02)
[2021-08-16 10:03] LABS: ANISOCYTOSIS 1+; MACROCYTOSIS 0; OVALOCYTE 1+; PLATELET ESTIMATE NORMAL
[2021-08-17] MEDS ORDERED: MEROPENEM 1 GM VIAL (RESTRICTED TO ID) IVPB ONE ×3 (01:06→16:17)
[2021-08-17] MEDS ORDERED: DEXTROSE 5%-WATER 100 ML IVPB ONE ×3 (01:07→16:18)
[2021-08-17] MEDS: MEROPENEM 1 GM in DEXTROSE 5%-WATER 100 ML IVPB SCH ×3 (01:17→17:18)
[2021-08-17] MEDS: BANATROL PLUS POWDER PACKET PO SCH ×3 (05:35→22:04)
[2021-08-17] MEDS: methaDONE HCL 10 MG TABLET NGT SCH ×3 (05:35→22:07)
[2021-08-17] MEDS: INSULIN SLIDING SCALE (NOVOLOG) 1 VIAL SQ SCH ×4 (06:34→22:05)
[2021-08-17] MEDS: LEVOTHYROXINE NA 125 MCG TABLET (FP) GT SCH (06:34)
[2021-08-17] MEDS: GEMFIBROZIL 600 MG TABLET (FP) GT SCH ×2 (06:34→16:52)
[2021-08-17 06:41] LABS: ARTERIAL BLD GAS O2 SATURATION 90.4 % (95-98); ARTERIAL BLOOD GAS BASE EXCESS 2.9 mmol/L (-2-2); ARTERIAL BLOOD GAS PO2 76.3 mmHg (80-100)
[2021-08-17 06:47] LABS: VENT MODE PSV; VENT RATE 12
[2021-08-17 06:49] LABS: ARTERIAL BLOOD GAS pH 7.167 (7.350-7.450)
[2021-08-17 07:29] LABS: CHLORIDE 98 mmol/L (98-107); SODIUM 139 mmol/L (136-145)
[2021-08-17 07:31] LABS: ANION GAP 1 MMOL/L (8-16); BLOOD UREA NITROGEN 16.4 mg/dL (7-18); CALCIUM 8.4 mg/dL (8.5-10.1); CO2 40 mmol/L (21-32); GLUCOSE,RANDOM 111 mg/dL (74-106)
[2021-08-17 07:35] LABS: MCH 27.9 pg (25.7-33.7); MCHC 31.8 g/dl (32.0-35.9); MEAN CELL VOLUME 87.7 fl (80-96); MEAN PLT VOLUME 7.1 fl (7.5-11.1); PLATELET COUNT 357 10^3/uL (134-434); RBC 2.85 M/mm3 (4.00-5.60); RDW 17.8 % (11.9-15.9); WHITE BLOOD COUNT 13.9 K/mm3 (4.0-10.0)
[2021-08-17 08:41] LABS: CREATININE < 0.2 mg/dL (0.55-1.3)
[2021-08-17] MEDS ORDERED: NOREPINEPHRINE BITARTRATE 4 MG/4 ML ML IV ONE (08:47)
[2021-08-17] MEDS: FAMOTIDINE 20 MG/50 ML IVPB 20 MG/50 ML MG IVPB SCH ×2 (09:03→22:03)
[2021-08-17 09:14] LABS: ARTERIAL BLD GAS O2 SATURATION 98.4 % (95-98); ARTERIAL BLOOD GAS BASE EXCESS 12.4 mmol/L (-2-2); ARTERIAL BLOOD GAS PO2 137.9 mmHg (80-100); ARTERIAL BLOOD GAS pH 7.335 (7.350-7.450)
[2021-08-17 09:15] LABS: ALLENS TEST POSITIVE
[2021-08-17 09:16] LABS: VENT RATE 16
[2021-08-17] MEDS: NOREPINEPHRINE D5W PREMIX 16,000 MCG/500 ML BAG IVPB SCH (09:45)
[2021-08-17] MEDS: ATOVAQUONE 750 MG/5 ML (UNIT-DOSE PACKAGING) GT SCH (10:15)
[2021-08-17] MEDS: ISONIAZID 300 MG TABLET (FP) GT SCH (10:16)
[2021-08-17] MEDS: FERROUS SO4 300 MG/5 ML ORAL SOLN UNIT DOSE CUPS GT SCH (10:16)
[2021-08-17] MEDS: AMIODARONE HCL 200 MG TABLET PO SCH ×2 (10:16→22:04)
[2021-08-17] MEDS: LACTOBACILLUS ACIDOPHILUS 1 TABLET GT SCH (10:16)
[2021-08-17] MEDS: AMINO ACIDS/PROTEIN HYDROLYS 30 ML LIQUID.PKT PO SCH (10:16)
[2021-08-17] MEDS: ESCITALOPRAM OXALATE 10 MG TABLET GT SCH (10:17)
[2021-08-17] MEDS: ZINC SULFATE 220 MG CAPSULE (FP) GT SCH (10:17)
[2021-08-17] MEDS: CALCIUM 500MG/VIT-D 200 UNITS COMBO TABLET (FP) GT SCH (10:17)
[2021-08-17] MEDS: MIDODRINE HCL 5 MG TABLET GT SCH ×3 (10:18→17:17)
[2021-08-17] MEDS: ASCORBIC ACID 500 MG/5 ML UNIT DOSE CUP GT SCH ×2 (10:18→22:03)
[2021-08-17] MEDS: CHOLECALCIFEROL (VIT D SOLUTION) 400 UNIT/1 ML DROPS GT SCH (10:18)
[2021-08-17] MEDS: TENOFOVIR DISOPROXIL FUMARATE 300 MG TABLET GT SCH (10:18)
[2021-08-17] MEDS ORDERED: MIDAZOLAM HCL 2 MG/2 ML SINGLE DOSE VIAL IVPUSH ONE (12:08)
[2021-08-17 12:40] LABS: EPI CELLS >36 /uL (0-25.1); HYALINE CASTS 6 /uL (0-3.1); URINE APPEARANCE CLEAR; URINE BACTERIA 9 /uL (0-1359); URINE BILIRUBIN NEGATIVE (NEGATIVE); URINE COLOR DK YELLOW; URINE GLUCOSE (UA) NEGATIVE (NEGATIVE); URINE KETONE NEGATIVE (NEGATIVE); URINE LEUK ESTERASE 1+ (NEGATIVE); URINE NITRITE NEGATIVE (NEGATIVE); URINE PROTEIN 1+ (NEGATIVE); URINE RBC 25 /uL (0-23.9); URINE UROBILINOGEN 0.2 mg/dL (0.2-1.0); URINE WBC 162 /uL (0-25.8)
[2021-08-17] MEDS ORDERED: GLUCAGON 1 MG KIT IVPUSH ONE (15:00)
[2021-08-17] MEDS ORDERED: GLUCAGON 1 MG KIT IM ONE (15:00)
[2021-08-17] MEDS: ENOXAPARIN NA (PORCINE) 40 MG/0.4 ML DISP.SYRIN SQ SCH (22:09)
[2021-08-18] MEDS ORDERED: DEXTROSE 5%-WATER 100 ML IVPB ONE ×3 (01:43→17:24)
[2021-08-18] MEDS ORDERED: MEROPENEM 1 GM VIAL (RESTRICTED TO ID) IVPB ONE ×3 (01:43→17:23)
[2021-08-18] MEDS: MEROPENEM 1 GM in DEXTROSE 5%-WATER 100 ML IVPB SCH ×3 (01:52→17:28)
[2021-08-18] MEDS: INSULIN SLIDING SCALE (NOVOLOG) 1 VIAL SQ SCH ×4 (06:16→21:36)
[2021-08-18] MEDS: LEVOTHYROXINE NA 125 MCG TABLET (FP) GT SCH (06:20)
[2021-08-18] MEDS: BANATROL PLUS POWDER PACKET PO SCH ×5 (06:20→21:36)
[2021-08-18] MEDS: methaDONE HCL 10 MG TABLET NGT SCH ×3 (06:20→21:35)
[2021-08-18] MEDS: GEMFIBROZIL 600 MG TABLET (FP) GT SCH ×2 (06:35→17:30)
[2021-08-18 07:28] LABS: HEMATOCRIT 25.5 % (35.4-49); MCH 27.8 pg (25.7-33.7); MCHC 31.2 g/dl (32.0-35.9); MEAN PLT VOLUME 7.1 fl (7.5-11.1); PLATELET COUNT 458 10^3/uL (134-434); RBC 2.87 M/mm3 (4.00-5.60); RDW 17.9 % (11.9-15.9); WHITE BLOOD COUNT 14.9 K/mm3 (4.0-10.0)
[2021-08-18 07:58] LABS: CALCIUM 9.2 mg/dL (8.5-10.1)
[2021-08-18 07:59] LABS: BLOOD UREA NITROGEN 22.5 mg/dL (7-18); CO2 39 mmol/L (21-32); GLUCOSE,RANDOM 77 mg/dL (74-106); MAGNESIUM 1.8 mg/dL (1.8-2.4)
[2021-08-18 08:03] LABS: BILIRUBIN,TOTAL 1.1 mg/dL (0.2-1); CREATININE < 0.2 mg/dL (0.55-1.3); SGOT/AST 70 U/L (15-37); SGPT/ALT 18 U/L (13-61); TOT PROT 4.8 g/dl (6.4-8.2)
[2021-08-18 08:04] LABS: ALK PHOS 187 U/L (45-117)
[2021-08-18 08:06] LABS: ANION GAP 1 MMOL/L (8-16); CHLORIDE 97 mmol/L (98-107); SODIUM 137 mmol/L (136-145)
[2021-08-18] MEDS: AMIODARONE HCL 200 MG TABLET PO SCH (10:27)
[2021-08-18] MEDS: MIDODRINE HCL 5 MG TABLET GT SCH ×3 (10:28→17:30)
[2021-08-18] MEDS: ESCITALOPRAM OXALATE 10 MG TABLET GT SCH (10:28)
[2021-08-18] MEDS: LACTOBACILLUS ACIDOPHILUS 1 TABLET GT SCH (10:28)
[2021-08-18] MEDS: ZINC SULFATE 220 MG CAPSULE (FP) GT SCH (10:28)
[2021-08-18] MEDS: AMINO ACIDS/PROTEIN HYDROLYS 30 ML LIQUID.PKT PO SCH (10:29)
[2021-08-18] MEDS: ATOVAQUONE 750 MG/5 ML (UNIT-DOSE PACKAGING) GT SCH (10:29)
[2021-08-18] MEDS: ASCORBIC ACID 500 MG/5 ML UNIT DOSE CUP GT SCH ×2 (10:30→22:02)
[2021-08-18] MEDS: FERROUS SO4 300 MG/5 ML ORAL SOLN UNIT DOSE CUPS GT SCH (10:30)
[2021-08-18] MEDS: ISONIAZID 300 MG TABLET (FP) GT SCH (10:30)
[2021-08-18] MEDS: TENOFOVIR DISOPROXIL FUMARATE 300 MG TABLET GT SCH (10:31)
[2021-08-18] MEDS: FAMOTIDINE 20 MG/50 ML IVPB 20 MG/50 ML MG IVPB SCH ×2 (10:31→21:36)
[2021-08-18] MEDS: CALCIUM 500MG/VIT-D 200 UNITS COMBO TABLET (FP) GT SCH (10:31)
[2021-08-18] MEDS: CHOLECALCIFEROL (VIT D SOLUTION) 400 UNIT/1 ML DROPS GT SCH (10:32)
[2021-08-18] MEDS: ENOXAPARIN NA (PORCINE) 40 MG/0.4 ML DISP.SYRIN SQ SCH (10:56)
[2021-08-18] MEDS: APIXABAN 5 MG TABLET PO SCH ×2 (11:02→21:36)
[2021-08-18] MEDS ORDERED: LACTATED RINGERS SOLUTION 1,000 ML/1,000 ML INFUS.BAG IV SCH (16:00)
[2021-08-18] MEDS: NOREPINEPHRINE D5W PREMIX 16,000 MCG/500 ML BAG IVPB SCH (17:00)
[2021-08-18] MEDS: LACTATED RINGERS SOLUTION 1,000 ML/1,000 ML INFUS.BAG IV SCH (17:28)
[2021-08-18] MEDS ORDERED: DEXTROSE 50%-WATER - 25 GM/50 ML VIAL IVPUSH ONE (17:57)
[2021-08-18] MEDS: AMIODARONE HCL 200 MG TABLET GT SCH (21:36)
[2021-08-19] MEDS ORDERED: MEROPENEM 1 GM VIAL (RESTRICTED TO ID) IVPB ONE ×3 (01:01→16:55)
[2021-08-19] MEDS ORDERED: DEXTROSE 5%-WATER 100 ML IVPB ONE ×3 (01:01→16:55)
[2021-08-19] MEDS: MEROPENEM 1 GM in DEXTROSE 5%-WATER 100 ML IVPB SCH ×3 (01:03→17:15)
[2021-08-19] MEDS: BANATROL PLUS POWDER PACKET PO SCH ×3 (05:13→21:36)
[2021-08-19] MEDS: methaDONE HCL 10 MG TABLET NGT SCH ×3 (05:14→21:20)
[2021-08-19] MEDS: LEVOTHYROXINE NA 125 MCG TABLET (FP) GT SCH (06:34)
[2021-08-19] MEDS: INSULIN SLIDING SCALE (NOVOLOG) 1 VIAL SQ SCH ×4 (06:34→21:37)
[2021-08-19 06:57] LABS: HEMATOCRIT 21.8 % (35.4-49); HEMOGLOBIN 7.1 GM/dL (11.7-16.9); MCHC 32.7 g/dl (32.0-35.9); MEAN CELL VOLUME 85.7 fl (80-96); MEAN PLT VOLUME 7.2 fl (7.5-11.1); PLATELET COUNT 401 10^3/uL (134-434); RBC 2.54 M/mm3 (4.00-5.60); WHITE BLOOD COUNT 13.6 K/mm3 (4.0-10.0)
[2021-08-19 07:29] LABS: BLOOD UREA NITROGEN 30.6 mg/dL (7-18); CALCIUM 8.1 mg/dL (8.5-10.1); MAGNESIUM 1.7 mg/dL (1.8-2.4)
[2021-08-19 07:30] LABS: ALBUMIN 1.7 g/dl (3.4-5.0)
[2021-08-19 07:32] LABS: CREATININE 0.3 mg/dL (0.55-1.3); PHOSPHOROUS 2.3 mg/dL (2.5-4.9)
[2021-08-19 07:34] LABS: TOT PROT 4.2 g/dl (6.4-8.2)
[2021-08-19] MEDS: LACTOBACILLUS ACIDOPHILUS 1 TABLET GT SCH (10:08)
[2021-08-19] MEDS: AMINO ACIDS/PROTEIN HYDROLYS 30 ML LIQUID.PKT PO SCH (10:08)
[2021-08-19] MEDS: GEMFIBROZIL 600 MG TABLET (FP) GT SCH ×2 (10:08→17:15)
[2021-08-19] MEDS: ATOVAQUONE 750 MG/5 ML (UNIT-DOSE PACKAGING) GT SCH (10:08)
[2021-08-19] MEDS: APIXABAN 5 MG TABLET PO SCH ×2 (10:08→21:20)
[2021-08-19] MEDS: AMIODARONE HCL 200 MG TABLET GT SCH ×2 (10:08→21:20)
[2021-08-19] MEDS: ISONIAZID 300 MG TABLET (FP) GT SCH (10:09)
[2021-08-19] MEDS: FAMOTIDINE 20 MG/50 ML IVPB 20 MG/50 ML MG IVPB SCH ×2 (10:09→21:20)
[2021-08-19] MEDS: MIDODRINE HCL 5 MG TABLET GT SCH ×2 (10:09→16:48)
[2021-08-19] MEDS: FERROUS SO4 300 MG/5 ML ORAL SOLN UNIT DOSE CUPS GT SCH (10:09)
[2021-08-19] MEDS: ESCITALOPRAM OXALATE 10 MG TABLET GT SCH (10:09)
[2021-08-19] MEDS: CALCIUM 500MG/VIT-D 200 UNITS COMBO TABLET (FP) GT SCH (10:09)
[2021-08-19] MEDS: CHOLECALCIFEROL (VIT D SOLUTION) 400 UNIT/1 ML DROPS GT SCH (10:10)
[2021-08-19] MEDS: ASCORBIC ACID 500 MG/5 ML UNIT DOSE CUP GT SCH ×2 (10:10→21:20)
[2021-08-19] MEDS: TENOFOVIR DISOPROXIL FUMARATE 300 MG TABLET GT SCH (10:10)
[2021-08-19] MEDS: NOREPINEPHRINE D5W PREMIX 16,000 MCG/500 ML BAG IVPB SCH ×2 (11:08→22:52)
[2021-08-19] MEDS ORDERED: MAGNESIUM SULF 50% (8.12 MEQ/2 ML-1 GM VIAL) IVPB ONE (12:26)
[2021-08-19] MEDS ORDERED: SODIUM PHOSPHATE - 0 MM in SODIUM CHLORIDE 250 ML IVPB ONE (12:27)
[2021-08-19] MEDS ORDERED: NAPH,MB-DB/K PH,MBDB POWDER PACKET PO ONE (15:30)
[2021-08-19] MEDS: ZINC SULFATE 220 MG CAPSULE (FP) GT SCH (16:00)
[2021-08-19] MEDS: LACTATED RINGERS SOLUTION 1,000 ML/1,000 ML INFUS.BAG IV SCH (16:49)
[2021-08-19 19:06] LABS: CREATININE 0.4 mg/dL (0.55-1.3)
[2021-08-20] MEDS ORDERED: DEXTROSE 5%-WATER 100 ML IVPB ONE ×3 (00:11→18:06)
[2021-08-20] MEDS ORDERED: MEROPENEM 1 GM VIAL (RESTRICTED TO ID) IVPB ONE ×3 (00:11→18:06)
[2021-08-20] MEDS: MEROPENEM 1 GM in DEXTROSE 5%-WATER 100 ML IVPB SCH ×3 (01:00→18:09)
[2021-08-20] MEDS: methaDONE HCL 10 MG TABLET NGT SCH ×3 (05:20→21:22)
[2021-08-20] MEDS: LEVOTHYROXINE NA 125 MCG TABLET (FP) GT SCH (05:59)
[2021-08-20] MEDS: BANATROL PLUS POWDER PACKET PO SCH ×3 (05:59→21:22)
[2021-08-20] MEDS: INSULIN SLIDING SCALE (NOVOLOG) 1 VIAL SQ SCH ×4 (06:20→21:22)
[2021-08-20 07:14] LABS: HEMATOCRIT 19.6 % (35.4-49); MCH 27.8 pg (25.7-33.7); MCHC 33.2 g/dl (32.0-35.9); MEAN CELL VOLUME 83.7 fl (80-96); PLATELET COUNT 350 10^3/uL (134-434); RBC 2.35 M/mm3 (4.00-5.60); RDW 17.5 % (11.9-15.9); WHITE BLOOD COUNT 11.4 K/mm3 (4.0-10.0)
[2021-08-20 07:15] LABS: HEMOGLOBIN 6.5 GM/dL (11.7-16.9)
[2021-08-20 07:23] LABS: INR 1.28 (0.83-1.09); PROTHROMBIN TIME (PATIENT) 14.7 SEC (9.7-13.0)
[2021-08-20 07:37] LABS: MAGNESIUM 1.9 mg/dL (1.8-2.4)
[2021-08-20 07:41] LABS: PHOSPHOROUS 1.8 mg/dL (2.5-4.9)
[2021-08-20] MEDS ORDERED: NAPH,MB-DB/K PH,MBDB POWDER PACKET PO ONE (07:57)
[2021-08-20 08:38] LABS: CALCIUM 8.3 mg/dL (8.5-10.1)
[2021-08-20 08:39] LABS: ALBUMIN 1.5 g/dl (3.4-5.0); BLOOD UREA NITROGEN 34.9 mg/dL (7-18)
[2021-08-20 08:42] LABS: CREATININE 0.4 mg/dL (0.55-1.3)
[2021-08-20 08:44] LABS: BILIRUBIN,TOTAL 0.9 mg/dL (0.2-1)
[2021-08-20] MEDS: FAMOTIDINE 20 MG/50 ML IVPB 20 MG/50 ML MG IVPB SCH ×2 (11:38→21:23)
[2021-08-20] MEDS: AMINO ACIDS/PROTEIN HYDROLYS 30 ML LIQUID.PKT PO SCH (11:39)
[2021-08-20] MEDS: ATOVAQUONE 750 MG/5 ML (UNIT-DOSE PACKAGING) GT SCH (11:39)
[2021-08-20] MEDS: CHOLECALCIFEROL (VIT D SOLUTION) 400 UNIT/1 ML DROPS GT SCH (11:39)
[2021-08-20] MEDS: ZINC SULFATE 220 MG CAPSULE (FP) GT SCH (11:40)
[2021-08-20] MEDS: AMIODARONE HCL 200 MG TABLET GT SCH ×2 (11:40→21:22)
[2021-08-20] MEDS: MIDODRINE HCL 5 MG TABLET GT SCH ×4 (11:40→18:30)
[2021-08-20] MEDS: ESCITALOPRAM OXALATE 10 MG TABLET GT SCH (11:41)
[2021-08-20] MEDS: CALCIUM 500MG/VIT-D 200 UNITS COMBO TABLET (FP) GT SCH (11:41)
[2021-08-20] MEDS: LACTOBACILLUS ACIDOPHILUS 1 TABLET GT SCH (11:41)
[2021-08-20] MEDS: ISONIAZID 300 MG TABLET (FP) GT SCH (11:42)
[2021-08-20] MEDS: TENOFOVIR DISOPROXIL FUMARATE 300 MG TABLET GT SCH (11:42)
[2021-08-20] MEDS: ASCORBIC ACID 500 MG/5 ML UNIT DOSE CUP GT SCH ×2 (11:42→21:23)
[2021-08-20] MEDS: FERROUS SO4 300 MG/5 ML ORAL SOLN UNIT DOSE CUPS GT SCH (11:43)
[2021-08-20] MEDS: GEMFIBROZIL 600 MG TABLET (FP) GT SCH ×2 (11:49→18:08)
[2021-08-20] MEDS: NOREPINEPHRINE D5W PREMIX 16,000 MCG/500 ML BAG IVPB SCH (12:22)
[2021-08-20 18:58] LABS: HEMATOCRIT 24.9 % (35.4-49); HEMOGLOBIN 8.2 GM/dL (11.7-16.9); MCH 27.7 pg (25.7-33.7); MCHC 33.1 g/dl (32.0-35.9); MEAN CELL VOLUME 83.9 fl (80-96); MEAN PLT VOLUME 6.9 fl (7.5-11.1); PLATELET COUNT 324 10^3/uL (134-434); RBC 2.97 M/mm3 (4.00-5.60); RDW 15.8 % (11.9-15.9); WHITE BLOOD COUNT 12.2 K/mm3 (4.0-10.0)
[2021-08-20 19:25] LABS: BLOOD UREA NITROGEN 37.6 mg/dL (7-18); CALCIUM 8.7 mg/dL (8.5-10.1)
[2021-08-20 19:26] LABS: ALBUMIN 1.6 g/dl (3.4-5.0)
[2021-08-20 19:28] LABS: CREATININE 0.4 mg/dL (0.55-1.3); PHOSPHOROUS 1.8 mg/dL (2.5-4.9)
[2021-08-20 19:30] LABS: BILIRUBIN,TOTAL 0.8 mg/dL (0.2-1); TOT PROT 4.2 g/dl (6.4-8.2)
[2021-08-20] MEDS ORDERED: NAPH,MB-DB/K PH,MBDB POWDER PACKET GT ONE (19:53)
[2021-08-21] MEDS ORDERED: DEXTROSE 5%-WATER 100 ML IVPB ONE ×3 (02:17→17:53)
[2021-08-21] MEDS ORDERED: MEROPENEM 1 GM VIAL (RESTRICTED TO ID) IVPB ONE ×3 (02:17→17:53)
[2021-08-21] MEDS: MEROPENEM 1 GM in DEXTROSE 5%-WATER 100 ML IVPB SCH ×3 (02:20→17:56)
[2021-08-21] MEDS: BANATROL PLUS POWDER PACKET PO SCH ×3 (05:11→21:28)
[2021-08-21] MEDS: methaDONE HCL 10 MG TABLET NGT SCH (05:11)
[2021-08-21] MEDS: INSULIN SLIDING SCALE (NOVOLOG) 1 VIAL SQ SCH ×4 (06:10→21:48)
[2021-08-21] MEDS: LEVOTHYROXINE NA 125 MCG TABLET (FP) GT SCH (06:10)
[2021-08-21 07:12] LABS: HEMATOCRIT 23.8 % (35.4-49); HEMOGLOBIN 7.8 GM/dL (11.7-16.9); MCH 27.5 pg (25.7-33.7); MCHC 32.7 g/dl (32.0-35.9); MEAN CELL VOLUME 83.9 fl (80-96); MEAN PLT VOLUME 7.3 fl (7.5-11.1); PLATELET COUNT 301 10^3/uL (134-434); RBC 2.84 M/mm3 (4.00-5.60); RDW 16.2 % (11.9-15.9); WHITE BLOOD COUNT 11.1 K/mm3 (4.0-10.0)
[2021-08-21 07:22] LABS: INR 1.12 (0.83-1.09); PROTHROMBIN TIME (PATIENT) 12.9 SEC (9.7-13.0)
[2021-08-21 07:51] LABS: CALCIUM 8.5 mg/dL (8.5-10.1)
[2021-08-21 07:52] LABS: ALBUMIN 1.5 g/dl (3.4-5.0); BLOOD UREA NITROGEN 39.8 mg/dL (7-18); MAGNESIUM 2.1 mg/dL (1.8-2.4)
[2021-08-21 07:55] LABS: CREATININE 0.4 mg/dL (0.55-1.3); PHOSPHOROUS 1.9 mg/dL (2.5-4.9)
[2021-08-21 07:56] LABS: BILIRUBIN,TOTAL 0.6 mg/dL (0.2-1); TOT PROT 4.1 g/dl (6.4-8.2)
[2021-08-21 10:18] LABS: ANISOCYTOSIS 2+; MACROCYTOSIS 0; OVALOCYTE 1+; PLATELET ESTIMATE NORMAL; TEAR DROP CELLS 1+
[2021-08-21] MEDS: CHOLECALCIFEROL (VIT D SOLUTION) 400 UNIT/1 ML DROPS GT SCH (10:46)
[2021-08-21] MEDS: APIXABAN 5 MG TABLET PO SCH ×2 (10:47→21:28)
[2021-08-21] MEDS: ATOVAQUONE 750 MG/5 ML (UNIT-DOSE PACKAGING) GT SCH (10:47)
[2021-08-21] MEDS: AMINO ACIDS/PROTEIN HYDROLYS 30 ML LIQUID.PKT PO SCH (10:47)
[2021-08-21] MEDS: FAMOTIDINE 20 MG/50 ML IVPB 20 MG/50 ML MG IVPB SCH ×2 (10:47→21:30)
[2021-08-21] MEDS: CALCIUM 500MG/VIT-D 200 UNITS COMBO TABLET (FP) GT SCH (10:49)
[2021-08-21] MEDS: ZINC SULFATE 220 MG CAPSULE (FP) GT SCH (10:49)
[2021-08-21] MEDS: GEMFIBROZIL 600 MG TABLET (FP) GT SCH ×2 (10:49→16:58)
[2021-08-21] MEDS: MIDODRINE HCL 5 MG TABLET GT SCH ×3 (10:49→18:55)
[2021-08-21] MEDS: AMIODARONE HCL 200 MG TABLET GT SCH ×2 (10:50→21:28)
[2021-08-21] MEDS: TENOFOVIR DISOPROXIL FUMARATE 300 MG TABLET GT SCH (10:50)
[2021-08-21] MEDS: ESCITALOPRAM OXALATE 10 MG TABLET GT SCH (10:50)
[2021-08-21] MEDS: ISONIAZID 300 MG TABLET (FP) GT SCH (10:50)
[2021-08-21] MEDS: FERROUS SO4 300 MG/5 ML ORAL SOLN UNIT DOSE CUPS GT SCH (10:50)
[2021-08-21] MEDS: ASCORBIC ACID 500 MG/5 ML UNIT DOSE CUP GT SCH ×2 (10:50→23:00)
[2021-08-21] MEDS: LACTOBACILLUS ACIDOPHILUS 1 TABLET GT SCH (10:50)
[2021-08-21] MEDS: NOREPINEPHRINE D5W PREMIX 16,000 MCG/500 ML BAG IVPB SCH (10:51)
[2021-08-22] MEDS: MEROPENEM 1 GM in DEXTROSE 5%-WATER 100 ML IVPB SCH (03:00)
[2021-08-22] MEDS ORDERED: MEROPENEM 1 GM VIAL (RESTRICTED TO ID) IVPB ONE ×2 (03:25→11:06)
[2021-08-22] MEDS ORDERED: DEXTROSE 5%-WATER 100 ML IVPB ONE ×2 (03:25→11:06)
[2021-08-22] MEDS: BANATROL PLUS POWDER PACKET PO SCH (05:01)
[2021-08-22] MEDS ORDERED: guaiFENesin 200 MG/10 ML 10 ML UNIT-DOSE CUPS GT PRN (05:54)
[2021-08-22] MEDS ORDERED: ACETAMINOPHEN 650 MG/20.3 ML ORAL SOLUTION (CUPS) GT PRN (05:54)
[2021-08-22] MEDS ORDERED: ALBUTEROL SO4 HFA INHALER IH PRN (05:54)
[2021-08-22] MEDS ORDERED: POLYETHYLENE GLYCOL (HEALTHYLAX) 3350 17 GM PACKET NGT PRN (05:54)
[2021-08-22] MEDS ORDERED: OCULAR LUBRICANT OPHTHALMIC OINTMENT 7 GM TUBE OU PRN (05:54)
[2021-08-22] MEDS: INSULIN SLIDING SCALE (NOVOLOG) 1 VIAL SQ SCH ×4 (08:56→22:52)
[2021-08-22] MEDS: AMINO ACIDS/PROTEIN HYDROLYS 30 ML LIQUID.PKT PO SCH (08:57)
[2021-08-22] MEDS: GEMFIBROZIL 600 MG TABLET (FP) GT SCH ×2 (08:58→18:00)
[2021-08-22] MEDS: LEVOTHYROXINE NA 125 MCG TABLET (FP) GT SCH (08:58)
[2021-08-22] MEDS: ATOVAQUONE 750 MG/5 ML (UNIT-DOSE PACKAGING) GT SCH (09:03)
[2021-08-22] MEDS: BANATROL PLUS POWDER PACKET GT SCH ×3 (09:03→23:51)
[2021-08-22] MEDS ORDERED: MEROPENEM 1 GM in DEXTROSE 5%-WATER 100 ML IVPB SCH (10:00)
[2021-08-22] MEDS: FAMOTIDINE 20 MG/50 ML IVPB 20 MG/50 ML MG IVPB SCH ×2 (11:15→22:52)
[2021-08-22] MEDS: APIXABAN 5 MG TABLET PO SCH ×2 (11:23→22:51)
[2021-08-22] MEDS: AMIODARONE HCL 200 MG TABLET GT SCH ×2 (11:23→22:51)
[2021-08-22] MEDS: ISONIAZID 300 MG TABLET (FP) GT SCH (11:24)
[2021-08-22] MEDS: FERROUS SO4 300 MG/5 ML ORAL SOLN UNIT DOSE CUPS GT SCH (11:24)
[2021-08-22] MEDS: LACTOBACILLUS ACIDOPHILUS 1 TABLET GT SCH (11:24)
[2021-08-22] MEDS: CALCIUM 500MG/VIT-D 200 UNITS COMBO TABLET (FP) GT SCH (11:24)
[2021-08-22] MEDS: ESCITALOPRAM OXALATE 10 MG TABLET GT SCH (11:24)
[2021-08-22] MEDS: MIDODRINE HCL 5 MG TABLET GT SCH ×3 (11:25→18:16)
[2021-08-22] MEDS: TENOFOVIR DISOPROXIL FUMARATE 300 MG TABLET GT SCH (14:04)
[2021-08-22 14:05] LABS: HEMATOCRIT 23.7 % (35.4-49); HEMOGLOBIN 7.8 GM/dL (11.7-16.9); MCH 27.7 pg (25.7-33.7); MCHC 32.7 g/dl (32.0-35.9); MEAN CELL VOLUME 84.6 fl (80-96); PLATELET COUNT 270 10^3/uL (134-434); RBC 2.81 M/mm3 (4.00-5.60); RDW 16.8 % (11.9-15.9); WHITE BLOOD COUNT 11.6 K/mm3 (4.0-10.0)
[2021-08-22 14:24] LABS: CALCIUM 8.4 mg/dL (8.5-10.1); INR 1.29 (0.83-1.09); PROTHROMBIN TIME (PATIENT) 14.9 SEC (9.7-13.0)
[2021-08-22 14:25] LABS: ALBUMIN 1.5 g/dl (3.4-5.0); BLOOD UREA NITROGEN 46.4 mg/dL (7-18); MAGNESIUM 2.1 mg/dL (1.8-2.4)
[2021-08-22 14:28] LABS: CREATININE 0.6 mg/dL (0.55-1.3); PHOSPHOROUS 1.6 mg/dL (2.5-4.9)
[2021-08-22 14:30] LABS: TOT PROT 4.1 g/dl (6.4-8.2)
[2021-08-22 15:04] LABS: ANISOCYTOSIS 0; MACROCYTOSIS 0; PLATELET ESTIMATE NORMAL
[2021-08-23] MEDS: GEMFIBROZIL 600 MG TABLET (FP) GT SCH ×2 (06:52→17:07)
[2021-08-23] MEDS: LEVOTHYROXINE NA 125 MCG TABLET (FP) GT SCH (06:52)
[2021-08-23] MEDS: BANATROL PLUS POWDER PACKET GT SCH ×3 (06:52→22:33)
[2021-08-23] MEDS: INSULIN SLIDING SCALE (NOVOLOG) 1 VIAL SQ SCH ×4 (06:52→22:34)
[2021-08-23] MEDS: AMINO ACIDS/PROTEIN HYDROLYS 30 ML LIQUID.PKT PO SCH (07:43)
[2021-08-23] MEDS: ATOVAQUONE 750 MG/5 ML (UNIT-DOSE PACKAGING) GT SCH (07:44)
[2021-08-23 08:41] LABS: HEMATOCRIT 24.9 % (35.4-49); HEMOGLOBIN 8.3 GM/dL (11.7-16.9); MCH 28.2 pg (25.7-33.7); MCHC 33.3 g/dl (32.0-35.9); MEAN CELL VOLUME 84.8 fl (80-96); MEAN PLT VOLUME 7.3 fl (7.5-11.1); PLATELET COUNT 255 10^3/uL (134-434); RBC 2.94 M/mm3 (4.00-5.60); RDW 16.7 % (11.9-15.9); WHITE BLOOD COUNT 8.9 K/mm3 (4.0-10.0)
[2021-08-23 09:03] LABS: CALCIUM 8.6 mg/dL (8.5-10.1)
[2021-08-23 09:04] LABS: ALBUMIN 1.5 g/dl (3.4-5.0); BLOOD UREA NITROGEN 49.1 mg/dL (7-18); INR 1.25 (0.83-1.09); PROTHROMBIN TIME (PATIENT) 14.4 SEC (9.7-13.0)
[2021-08-23 09:05] LABS: MAGNESIUM 2.1 mg/dL (1.8-2.4)
[2021-08-23 09:07] LABS: CREATININE 0.5 mg/dL (0.55-1.3); PHOSPHOROUS 2.3 mg/dL (2.5-4.9)
[2021-08-23 09:09] LABS: TOT PROT 4.3 g/dl (6.4-8.2)
[2021-08-23 09:30] LABS: ANISOCYTOSIS 0; MACROCYTOSIS 0; PLATELET ESTIMATE NORMAL
[2021-08-23] MEDS: APIXABAN 5 MG TABLET PO SCH ×2 (10:26→22:34)
[2021-08-23] MEDS: FERROUS SO4 300 MG/5 ML ORAL SOLN UNIT DOSE CUPS GT SCH (10:26)
[2021-08-23] MEDS: MIDODRINE HCL 5 MG TABLET GT SCH ×3 (10:26→17:07)
[2021-08-23] MEDS: AMIODARONE HCL 200 MG TABLET GT SCH (10:26)
[2021-08-23] MEDS: ESCITALOPRAM OXALATE 10 MG TABLET GT SCH (10:26)
[2021-08-23] MEDS: ISONIAZID 300 MG TABLET (FP) GT SCH (10:27)
[2021-08-23] MEDS: FAMOTIDINE 20 MG/50 ML IVPB 20 MG/50 ML MG IVPB SCH ×2 (10:27→22:36)
[2021-08-23] MEDS: CALCIUM 500MG/VIT-D 200 UNITS COMBO TABLET (FP) GT SCH (10:27)
[2021-08-23] MEDS: LACTOBACILLUS ACIDOPHILUS 1 TABLET GT SCH (10:27)
[2021-08-23] MEDS: TENOFOVIR DISOPROXIL FUMARATE 300 MG TABLET GT SCH (10:28)
[2021-08-23] MEDS ORDERED: FUROSEMIDE 40 MG/5 ML UNIT-DOSE CUP PEG ONE (13:11)
[2021-08-23] MEDS: SODIUM ZIRCONIUM CYCLOSILICATE (LOKELMA) 5 GM PACKET PO SCH (13:49)
[2021-08-24] MEDS: BANATROL PLUS POWDER PACKET GT SCH ×3 (05:36→21:53)
[2021-08-24] MEDS: INSULIN SLIDING SCALE (NOVOLOG) 1 VIAL SQ SCH ×4 (06:38→22:09)
[2021-08-24] MEDS: LEVOTHYROXINE NA 125 MCG TABLET (FP) GT SCH (06:38)
[2021-08-24] MEDS: GEMFIBROZIL 600 MG TABLET (FP) GT SCH ×2 (08:53→18:39)
[2021-08-24] MEDS: AMINO ACIDS/PROTEIN HYDROLYS 30 ML LIQUID.PKT PO SCH (08:53)
[2021-08-24] MEDS: ATOVAQUONE 750 MG/5 ML (UNIT-DOSE PACKAGING) GT SCH (08:53)
[2021-08-24 09:54] LABS: CHLORIDE 91 mmol/L (98-107); SODIUM 131 mmol/L (136-145)
[2021-08-24 10:04] LABS: ALBUMIN 1.6 g/dl (3.4-5.0); BLOOD UREA NITROGEN 50.8 mg/dL (7-18); CO2 34 mmol/L (21-32); GLUCOSE,RANDOM 86 mg/dL (74-106)
[2021-08-24 10:07] LABS: CREATININE 0.6 mg/dL (0.55-1.3); SGOT/AST 51 U/L (15-37); SGPT/ALT 10 U/L (13-61); TOT PROT 4.6 g/dl (6.4-8.2)
[2021-08-24 10:09] LABS: ALK PHOS 150 U/L (45-117); BILIRUBIN,TOTAL 0.8 mg/dL (0.2-1)
[2021-08-24 10:10] LABS: ANION GAP 7 MMOL/L (8-16)
[2021-08-24] MEDS: LACTOBACILLUS ACIDOPHILUS 1 TABLET GT SCH (11:50)
[2021-08-24] MEDS: MIDODRINE HCL 5 MG TABLET GT SCH ×3 (11:50→18:29)
[2021-08-24] MEDS: FERROUS SO4 300 MG/5 ML ORAL SOLN UNIT DOSE CUPS GT SCH (11:51)
[2021-08-24] MEDS: AMIODARONE HCL 200 MG TABLET GT SCH (11:51)
[2021-08-24] MEDS: FAMOTIDINE 20 MG/50 ML IVPB 20 MG/50 ML MG IVPB SCH ×2 (11:51→21:53)
[2021-08-24] MEDS: ESCITALOPRAM OXALATE 10 MG TABLET GT SCH (11:51)
[2021-08-24] MEDS: APIXABAN 5 MG TABLET PO SCH ×2 (11:51→21:52)
[2021-08-24] MEDS: ISONIAZID 300 MG TABLET (FP) GT SCH (11:53)
[2021-08-24] MEDS: TENOFOVIR DISOPROXIL FUMARATE 300 MG TABLET GT SCH (11:54)
[2021-08-24] MEDS: SODIUM ZIRCONIUM CYCLOSILICATE (LOKELMA) 5 GM PACKET PO SCH ×2 (14:10→23:16)
[2021-08-24] MEDS ORDERED: FUROSEMIDE 40 MG/5 ML UNIT-DOSE CUP GT ONE (14:30)
[2021-08-24] MEDS: CALCIUM 500MG/VIT-D 200 UNITS COMBO TABLET (FP) GT SCH (14:51)
[2021-08-24 15:02] LABS: CALCIUM 9.1 mg/dL (8.5-10.1)
[2021-08-24 15:03] LABS: BLOOD UREA NITROGEN 51.5 mg/dL (7-18)
[2021-08-24 15:06] LABS: CREATININE 0.6 mg/dL (0.55-1.3)
[2021-08-25] MEDS ORDERED: SODIUM CHLORIDE 1,000 ML IV STA ×2 (01:40→02:34)
[2021-08-25 03:00] LABS: HEMATOCRIT 22.9 % (35.4-49); HEMOGLOBIN 7.4 GM/dL (11.7-16.9); MCH 27.7 pg (25.7-33.7); MCHC 32.3 g/dl (32.0-35.9); MEAN CELL VOLUME 85.9 fl (80-96); PLATELET COUNT 237 10^3/uL (134-434); RBC 2.66 M/mm3 (4.00-5.60); RDW 17.6 % (11.9-15.9)
[2021-08-25 03:31] LABS: LACTIC ACID 4.5 mmol/L (0.4-2.0)
[2021-08-25 03:53] LABS: ARTERIAL BLD GAS O2 SATURATION 81.7 % (95-98); ARTERIAL BLOOD GAS BASE EXCESS 4.7 mmol/L (-2-2); ARTERIAL BLOOD GAS PO2 55.6 mmHg (80-100); ARTERIAL BLOOD GAS pH 7.235 (7.350-7.450); EPI CELLS >36 /uL (0-25.1); HYALINE CASTS 21 /uL (0-3.1); URINE APPEARANCE TURBID; URINE BILIRUBIN NEGATIVE (NEGATIVE); URINE COLOR YELLOW; URINE GLUCOSE (UA) NEGATIVE (NEGATIVE); URINE KETONE NEGATIVE (NEGATIVE); URINE LEUK ESTERASE 2+ (NEGATIVE); URINE NITRITE NEGATIVE (NEGATIVE); URINE PROTEIN 1+ (NEGATIVE); URINE UROBILINOGEN 0.2 mg/dL (0.2-1.0); URINE WBC 648 /uL (0-25.8)
[2021-08-25 03:56] LABS: ALLENS TEST POSITIVE; VENT MODE A/C; VENT RATE 16
[2021-08-25 04:00] LABS: CALCIUM 8.4 mg/dL (8.5-10.1)
[2021-08-25] MEDS: VASOPRESSIN 40 UNITS/100 ML BAG IV SCH ×2 (04:00→22:42)
[2021-08-25 04:01] LABS: ALBUMIN 1.3 g/dl (3.4-5.0); BLOOD UREA NITROGEN 55.2 mg/dL (7-18)
[2021-08-25 04:04] LABS: CREATININE 0.8 mg/dL (0.55-1.3)
[2021-08-25 04:06] LABS: BILIRUBIN,TOTAL 0.5 mg/dL (0.2-1); TOT PROT 3.8 g/dl (6.4-8.2)
[2021-08-25] MEDS: NOREPINEPHRINE BITARTRATE 16,000 MCG in SODIUM CHLORIDE 484 ML IV SCH ×2 (04:35→14:33)
[2021-08-25] MEDS ORDERED: DEXTROSE 10%-WATER 500 ML INFUS.BAG IV ONE (05:03)
[2021-08-25] MEDS ORDERED: HYDROCORTISONE SOD SUCCINATE 100 MG/2 ML VIAL IVPUSH ONE (05:07)
[2021-08-25] MEDS ORDERED: PHENYLEPHRINE NS PREMIX 50,000 MCG/500 ML BAG CVP SCH (05:30)
[2021-08-25] MEDS ORDERED: SODIUM CHLORIDE 1,000 ML IV SCH (05:45)
[2021-08-25 05:52] LABS: URINE BACTERIA 87.7 /uL (0-1359); YEAST NONE SEEN (NEGATIVE)
[2021-08-25] MEDS: INSULIN SLIDING SCALE (NOVOLOG) 1 VIAL SQ SCH ×4 (06:43→21:19)
[2021-08-25] MEDS: LEVOTHYROXINE NA 125 MCG TABLET (FP) GT SCH (06:48)
[2021-08-25] MEDS: BANATROL PLUS POWDER PACKET GT SCH ×3 (06:48→21:18)
[2021-08-25] MEDS ORDERED: DEXMEDETOMIDINE IN 0.9 % NACL 400 MCG/100 ML VIAL IVPB SCH (07:00)
[2021-08-25 07:43] LABS: INR 1.36 (0.83-1.09); PROTHROMBIN TIME (PATIENT) 15.7 SEC (9.7-13.0)
[2021-08-25 07:46] LABS: ACTIVATED PTT 37.7 SECONDS (25.2-36.5)
[2021-08-25 07:51] LABS: LACTIC ACID 6.7 mmol/L (0.4-2.0)
[2021-08-25 07:57] LABS: HEMATOCRIT 22.2 % (35.4-49); HEMOGLOBIN 7.2 GM/dL (11.7-16.9); MCH 28.3 pg (25.7-33.7); MCHC 32.4 g/dl (32.0-35.9); MEAN CELL VOLUME 87.5 fl (80-96); MEAN PLT VOLUME 7.6 fl (7.5-11.1); PLATELET COUNT 223 10^3/uL (134-434); RBC 2.54 M/mm3 (4.00-5.60); RDW 17.4 % (11.9-15.9); WHITE BLOOD COUNT 17.7 K/mm3 (4.0-10.0)
[2021-08-25 08:03] LABS: CALCIUM 8.3 mg/dL (8.5-10.1)
[2021-08-25 08:04] LABS: ALBUMIN 1.3 g/dl (3.4-5.0); BLOOD UREA NITROGEN 55.2 mg/dL (7-18)
[2021-08-25 08:05] LABS: MAGNESIUM 2.2 mg/dL (1.8-2.4)
[2021-08-25 08:07] LABS: CREATININE 0.8 mg/dL (0.55-1.3); PHOSPHOROUS 3.3 mg/dL (2.5-4.9)
[2021-08-25 08:09] LABS: BILIRUBIN,TOTAL 0.7 mg/dL (0.2-1); TOT PROT 3.7 g/dl (6.4-8.2)
[2021-08-25] MEDS: GEMFIBROZIL 600 MG TABLET (FP) GT SCH ×2 (08:39→17:03)
[2021-08-25] MEDS: AMINO ACIDS/PROTEIN HYDROLYS 30 ML LIQUID.PKT PO SCH (08:40)
[2021-08-25] MEDS: ATOVAQUONE 750 MG/5 ML (UNIT-DOSE PACKAGING) GT SCH (08:40)
[2021-08-25] MEDS: MUPIROCIN 2% TOPICAL OINTMENT FOR DECOLONIZATION NS SCH ×2 (09:55→21:18)
[2021-08-25] MEDS: SODIUM ZIRCONIUM CYCLOSILICATE (LOKELMA) 5 GM PACKET PO SCH (09:55)
[2021-08-25] MEDS: FAMOTIDINE 20 MG/50 ML IVPB 20 MG/50 ML MG IVPB SCH ×2 (09:55→21:19)
[2021-08-25] MEDS: LACTOBACILLUS ACIDOPHILUS 1 TABLET GT SCH (09:56)
[2021-08-25] MEDS: MIDODRINE HCL 5 MG TABLET GT SCH ×3 (09:56→18:13)
[2021-08-25] MEDS: APIXABAN 5 MG TABLET PO SCH ×3 (09:56→22:30)
[2021-08-25] MEDS: AMIODARONE HCL 200 MG TABLET GT SCH (09:57)
[2021-08-25] MEDS: FLUDROCORTISONE ACETATE 0.1 MG TABLET (FP) PO SCH (09:57)
[2021-08-25] MEDS: ESCITALOPRAM OXALATE 10 MG TABLET GT SCH (09:57)
[2021-08-25] MEDS: ISONIAZID 300 MG TABLET (FP) GT SCH (09:59)
[2021-08-25] MEDS ORDERED: FENTANYL NS IVPB 500 MCG/100 ML BAG IVPB SCH (10:00)
[2021-08-25] MEDS: TENOFOVIR DISOPROXIL FUMARATE 300 MG TABLET GT SCH (10:06)
[2021-08-25] MEDS: HYDROCORTISONE SOD SUCCINATE 100 MG/2 ML VIAL IVPUSH SCH ×3 (11:08→21:18)
[2021-08-25] MEDS: FERROUS SO4 300 MG/5 ML ORAL SOLN UNIT DOSE CUPS GT SCH (11:09)
[2021-08-25] MEDS ORDERED: DEXTROSE 5%-NORMAL SALINE 1,000 ML IV SCH (11:15)
[2021-08-25 12:23] LABS: PLATELET ESTIMATE NORMAL
[2021-08-25 14:04] LABS: ANISOCYTOSIS 1+; MACROCYTOSIS 1+
[2021-08-25 15:24] LABS: ANISOCYTOSIS 1+; MACROCYTOSIS 0
[2021-08-25] MEDS ORDERED: DEXTROSE 50%-WATER - 25 GM/50 ML VIAL IVPUSH ONE (16:38)
[2021-08-25] MEDS ORDERED: POTASSIUM CHLORIDE 10 MEQ in DEXTROSE 5%-NORMAL SALINE 1,000 ML IVPB SCH (17:15)
[2021-08-25] MEDS ORDERED: MEROPENEM 1 GM in DEXTROSE 5%-WATER 100 ML IVPB SCH (18:00)
[2021-08-25] MEDS: CALCIUM 500MG/VIT-D 200 UNITS COMBO TABLET (FP) GT SCH (18:13)
[2021-08-25] MEDS: DEXTROSE 5%-NORMAL SALINE 1,000 ML IV SCH (18:14)
[2021-08-25] MEDS ORDERED: DEXTROSE 5%-WATER 100 ML IVPB ONE ×2 (18:18→23:42)
[2021-08-25] MEDS ORDERED: MEROPENEM 1 GM VIAL (RESTRICTED TO ID) IVPB ONE ×2 (18:18→23:42)
[2021-08-25] MEDS: MEROPENEM 1 GM in DEXTROSE 5%-WATER 100 ML IVPB SCH (18:19)
[2021-08-25 21:09] LABS: HEMATOCRIT 29.1 % (35.4-49); HEMOGLOBIN 9.2 GM/dL (11.7-16.9); MCH 27.8 pg (25.7-33.7); MCHC 31.5 g/dl (32.0-35.9); MEAN CELL VOLUME 88.3 fl (80-96); MEAN PLT VOLUME 7.5 fl (7.5-11.1); PLATELET COUNT 138 10^3/uL (134-434); RBC 3.29 M/mm3 (4.00-5.60); RDW 17.2 % (11.9-15.9)
[2021-08-25 21:17] LABS: WHITE BLOOD COUNT 32.3 K/mm3 (4.0-10.0)
[2021-08-25] MEDS: CHLORHEXIDINE GLUCONATE 4% CLEANSER FOR DECOLONIZATION TP SCH (21:19)
[2021-08-25 22:07] LABS: HEMATOCRIT 28.7 % (35.4-49); HEMOGLOBIN 9.1 GM/dL (11.7-16.9); MCH 28.1 pg (25.7-33.7); MCHC 31.8 g/dl (32.0-35.9); MEAN CELL VOLUME 88.3 fl (80-96); MEAN PLT VOLUME 7.5 fl (7.5-11.1); PLATELET COUNT 111 10^3/uL (134-434); RBC 3.25 M/mm3 (4.00-5.60); RDW 17.5 % (11.9-15.9)
[2021-08-25 22:12] LABS: WHITE BLOOD COUNT 30.8 K/mm3 (4.0-10.0)
[2021-08-25 23:15] LABS: ANISOCYTOSIS 0; MACROCYTOSIS 0
[2021-08-25] MEDS ORDERED: VANCOMYCIN 1 GM in D5W (PRE-DOCKED) 1,000 MG/250 ML IVPB ONE (23:40)
[2021-08-26] MEDS: MEROPENEM 1 GM in DEXTROSE 5%-WATER 100 ML IVPB SCH ×3 (01:01→17:02)
[2021-08-26] MEDS: NOREPINEPHRINE BITARTRATE 16,000 MCG in SODIUM CHLORIDE 484 ML IV SCH ×3 (01:15→15:00)
[2021-08-26] MEDS: HYDROCORTISONE SOD SUCCINATE 100 MG/2 ML VIAL IVPUSH SCH ×2 (02:03→12:11)
[2021-08-26] MEDS ORDERED: DEXTROSE 50%-WATER - 25 GM/50 ML VIAL IVPUSH ONE ×2 (02:57→16:22)
[2021-08-26] MEDS: BANATROL PLUS POWDER PACKET GT SCH ×3 (05:24→23:23)
[2021-08-26] MEDS: DEXTROSE 5%-NORMAL SALINE 1,000 ML IV SCH ×2 (05:54→17:01)
[2021-08-26] MEDS: VASOPRESSIN 40 UNITS/100 ML BAG IV SCH ×2 (05:57→18:26)
[2021-08-26] MEDS: INSULIN SLIDING SCALE (NOVOLOG) 1 VIAL SQ SCH ×4 (05:59→23:16)
[2021-08-26] MEDS: LEVOTHYROXINE NA 125 MCG TABLET (FP) GT SCH (05:59)
[2021-08-26 07:26] LABS: HEMATOCRIT 28.7 % (35.4-49); MCHC 31.5 g/dl (32.0-35.9); MEAN CELL VOLUME 88.8 fl (80-96); MEAN PLT VOLUME 8.2 fl (7.5-11.1); PLATELET COUNT 89 10^3/uL (134-434); RBC 3.23 M/mm3 (4.00-5.60); RDW 17.6 % (11.9-15.9)
[2021-08-26 07:29] LABS: WHITE BLOOD COUNT 40.5 K/mm3 (4.0-10.0)
[2021-08-26 07:46] LABS: ALBUMIN 1.3 g/dl (3.4-5.0); BLOOD UREA NITROGEN 59.4 mg/dL (7-18); CALCIUM 8.1 mg/dL (8.5-10.1)
[2021-08-26 07:49] LABS: PHOSPHOROUS 3.1 mg/dL (2.5-4.9)
[2021-08-26 07:50] LABS: CREATININE 0.8 mg/dL (0.55-1.3)
[2021-08-26 07:51] LABS: TOT PROT 3.7 g/dl (6.4-8.2)
[2021-08-26 08:15] LABS: LACTIC ACID 9.8 mmol/L (0.4-2.0)
[2021-08-26] MEDS: AMINO ACIDS/PROTEIN HYDROLYS 30 ML LIQUID.PKT PO SCH (08:25)
[2021-08-26] MEDS: GEMFIBROZIL 600 MG TABLET (FP) GT SCH ×2 (08:25→17:01)
[2021-08-26] MEDS: ATOVAQUONE 750 MG/5 ML (UNIT-DOSE PACKAGING) GT SCH (08:35)
[2021-08-26] MEDS ORDERED: DEXTROSE 5%-WATER 100 ML IVPB ONE ×2 (10:03→16:24)
[2021-08-26] MEDS ORDERED: MEROPENEM 1 GM VIAL (RESTRICTED TO ID) IVPB ONE ×2 (10:03→16:24)
[2021-08-26 10:28] LABS: ANISOCYTOSIS 1+; MACROCYTOSIS 0
[2021-08-26 10:35] LABS: PLATELET ESTIMATE DECREASED
[2021-08-26] MEDS: FAMOTIDINE 20 MG/50 ML IVPB 20 MG/50 ML MG IVPB SCH ×2 (10:41→23:22)
[2021-08-26] MEDS: FLUDROCORTISONE ACETATE 0.1 MG TABLET (FP) PO SCH (10:41)
[2021-08-26] MEDS: FERROUS SO4 300 MG/5 ML ORAL SOLN UNIT DOSE CUPS GT SCH (10:41)
[2021-08-26] MEDS: LACTOBACILLUS ACIDOPHILUS 1 TABLET GT SCH (10:41)
[2021-08-26] MEDS: CALCIUM 500MG/VIT-D 200 UNITS COMBO TABLET (FP) GT SCH (10:41)
[2021-08-26] MEDS: MIDODRINE HCL 5 MG TABLET GT SCH ×3 (10:41→17:03)
[2021-08-26] MEDS: ESCITALOPRAM OXALATE 10 MG TABLET GT SCH (10:41)
[2021-08-26] MEDS: SODIUM ZIRCONIUM CYCLOSILICATE (LOKELMA) 5 GM PACKET PO SCH (10:42)
[2021-08-26] MEDS: ISONIAZID 300 MG TABLET (FP) GT SCH (10:42)
[2021-08-26] MEDS: APIXABAN 5 MG TABLET PO SCH ×2 (10:42→23:22)
[2021-08-26] MEDS: TENOFOVIR DISOPROXIL FUMARATE 300 MG TABLET GT SCH (10:45)
[2021-08-26] MEDS: AMIODARONE HCL 200 MG TABLET GT SCH (10:45)
[2021-08-26] MEDS: MUPIROCIN 2% TOPICAL OINTMENT FOR DECOLONIZATION NS SCH ×2 (10:45→23:22)
[2021-08-26] MEDS ORDERED: VANCOMYCIN/WATER 1,250 MG/250 ML BAG IVPB SCH (11:15)
[2021-08-26] MEDS: VANCOMYCIN/WATER BAGS 1,250 MG/250 ML BAG IVPB SCH ×3 (13:00→22:03)
[2021-08-26] MEDS ORDERED: ARTIFICIAL TEARS (POLYVINYL ALCOHOL) OPTH DROPS OU PRN (21:12)
[2021-08-26] MEDS ORDERED: DEXTROSE 10%-WATER 500 ML INFUS.BAG IV ONE ×2 (23:16→23:18)
[2021-08-26] MEDS: CHLORHEXIDINE GLUCONATE 4% CLEANSER FOR DECOLONIZATION TP SCH (23:22)
[2021-08-27] MEDS: MEROPENEM 1 GM in DEXTROSE 5%-WATER 100 ML IVPB SCH ×3 (03:01→17:03)
[2021-08-27] MEDS ORDERED: MEROPENEM 1 GM VIAL (RESTRICTED TO ID) IVPB ONE ×3 (03:05→17:00)
[2021-08-27] MEDS ORDERED: DEXTROSE 5%-WATER 100 ML IVPB ONE ×3 (03:05→17:01)
[2021-08-27] MEDS: INSULIN SLIDING SCALE (NOVOLOG) 1 VIAL SQ SCH ×4 (06:20→22:27)
[2021-08-27] MEDS: BANATROL PLUS POWDER PACKET GT SCH ×3 (06:20→22:27)
[2021-08-27] MEDS: LEVOTHYROXINE NA 125 MCG TABLET (FP) GT SCH (06:21)
[2021-08-27 07:47] LABS: HEMATOCRIT 28.7 % (35.4-49); HEMOGLOBIN 8.2 GM/dL (11.7-16.9); MCH 26.2 pg (25.7-33.7); MCHC 28.6 g/dl (32.0-35.9); MEAN CELL VOLUME 91.4 fl (80-96); MEAN PLT VOLUME 9.4 fl (7.5-11.1); PLATELET COUNT 54 10^3/uL (134-434); RBC 3.14 M/mm3 (4.00-5.60); RDW 18.7 % (11.9-15.9)
[2021-08-27 07:49] LABS: WHITE BLOOD COUNT 87.8 K/mm3 (4.0-10.0)
[2021-08-27] MEDS: GEMFIBROZIL 600 MG TABLET (FP) GT SCH ×2 (08:34→17:04)
[2021-08-27] MEDS: ATOVAQUONE 750 MG/5 ML (UNIT-DOSE PACKAGING) GT SCH (08:34)
[2021-08-27] MEDS: AMINO ACIDS/PROTEIN HYDROLYS 30 ML LIQUID.PKT PO SCH (08:34)
[2021-08-27 08:35] LABS: LACTIC ACID 13.1 mmol/L (0.4-2.0)
[2021-08-27 08:44] LABS: ALBUMIN 1.2 g/dl (3.4-5.0); CALCIUM 7.9 mg/dL (8.5-10.1)
[2021-08-27 08:45] LABS: BLOOD UREA NITROGEN 65.3 mg/dL (7-18)
[2021-08-27 08:47] LABS: CREATININE 0.9 mg/dL (0.55-1.3); PHOSPHOROUS 3.9 mg/dL (2.5-4.9)
[2021-08-27 08:49] LABS: BILIRUBIN,TOTAL 1.9 mg/dL (0.2-1); TOT PROT 3.3 g/dl (6.4-8.2)
[2021-08-27] MEDS ORDERED: VANCOMYCIN/WATER BAGS 1,250 MG/250 ML BAG IVPB SCH (09:00)
[2021-08-27] MEDS: SODIUM ZIRCONIUM CYCLOSILICATE (LOKELMA) 5 GM PACKET PO SCH (12:27)
[2021-08-27] MEDS: AMIODARONE HCL 200 MG TABLET GT SCH (12:27)
[2021-08-27] MEDS: ESCITALOPRAM OXALATE 10 MG TABLET GT SCH (12:28)
[2021-08-27] MEDS: MIDODRINE HCL 5 MG TABLET GT SCH ×3 (12:28→17:04)
[2021-08-27] MEDS: FLUDROCORTISONE ACETATE 0.1 MG TABLET (FP) PO SCH (12:28)
[2021-08-27] MEDS: LACTOBACILLUS ACIDOPHILUS 1 TABLET GT SCH (12:28)
[2021-08-27] MEDS: APIXABAN 5 MG TABLET PO SCH ×2 (12:28→22:34)
[2021-08-27] MEDS: FAMOTIDINE 20 MG/50 ML IVPB 20 MG/50 ML MG IVPB SCH ×2 (12:28→23:35)
[2021-08-27] MEDS: ISONIAZID 300 MG TABLET (FP) GT SCH (12:29)
[2021-08-27] MEDS: FERROUS SO4 300 MG/5 ML ORAL SOLN UNIT DOSE CUPS GT SCH (12:29)
[2021-08-27] MEDS: MUPIROCIN 2% TOPICAL OINTMENT FOR DECOLONIZATION NS SCH ×2 (12:29→22:28)
[2021-08-27] MEDS: CALCIUM 500MG/VIT-D 200 UNITS COMBO TABLET (FP) GT SCH (12:29)
[2021-08-27] MEDS: TENOFOVIR DISOPROXIL FUMARATE 300 MG TABLET GT SCH (12:30)
[2021-08-27] MEDS ORDERED: DEXTROSE 10%-WATER 500 ML INFUS.BAG IV ONE ×2 (12:39→13:45)
[2021-08-27] MEDS ORDERED: DEXTROSE 10%-WATER - 1,000 ML IV SCH (12:45)
[2021-08-27] MEDS ORDERED: FUROSEMIDE 40 MG/4 ML INJECTABLE VIAL IVPUSH ONE (12:48)
[2021-08-27] MEDS ORDERED: ALBUMIN HUMAN 5% 250 ML IV SOLUTION IV ONE (13:15)
[2021-08-27] MEDS ORDERED: HYDROCORTISONE SOD SUCCINATE 100 MG/2 ML VIAL IVPUSH SCH (13:30)
[2021-08-27] MEDS: HYDROCORTISONE SOD SUCCINATE 100 MG/2 ML VIAL IVPUSH SCH ×2 (14:45→22:27)
[2021-08-27] MEDS ORDERED: CASPOFUNGIN ACETATE 70 MG in SODIUM CHLORIDE 250 ML IVPB ONE (20:30)
[2021-08-27] MEDS ORDERED: SODIUM CHLORIDE IVPB ONE (21:00)
[2021-08-27] MEDS ORDERED: GENTAMICIN IVPB ONE (21:00)
[2021-08-27] MEDS: CHLORHEXIDINE GLUCONATE 4% CLEANSER FOR DECOLONIZATION TP SCH (22:27)
[2021-08-27] MEDS ORDERED: EPINEPHrine 1:10,000 (P-F SYR) 1 MG/10 ML DISP.SYRIN ONE (22:53)
[2021-08-27 23:19] LABS: BLOOD UREA NITROGEN 62.5 mg/dL (7-18); CALCIUM 8.3 mg/dL (8.5-10.1)
[2021-08-27 23:20] LABS: ALBUMIN 1.3 g/dl (3.4-5.0); MAGNESIUM 2.4 mg/dL (1.8-2.4)
[2021-08-27 23:23] LABS: CREATININE 0.9 mg/dL (0.55-1.3); PHOSPHOROUS 5.9 mg/dL (2.5-4.9)
[2021-08-27 23:24] LABS: BILIRUBIN,TOTAL 1.8 mg/dL (0.2-1); TOT PROT 3.3 g/dl (6.4-8.2)
[2021-08-27] MEDS ORDERED: DOPAMINE 400 MG/D5W - 400,000 MCG/250 ML INFUS.BAG IVPB SCH (23:30)
[2021-08-28] MEDS ORDERED: MEROPENEM 1 GM VIAL (RESTRICTED TO ID) IVPB ONE (01:34)
[2021-08-28] MEDS ORDERED: DEXTROSE 5%-WATER 100 ML IVPB ONE (01:35)
[2021-08-28] MEDS: MEROPENEM 1 GM in DEXTROSE 5%-WATER 100 ML IVPB SCH (01:57)
[2021-08-28] MEDS ORDERED: EPINEPHrine 1:1,000 4,000 MCG in DEXTROSE 5%-WATER - 996 ML IVPB SCH (04:45)
[2021-08-28] MEDS ORDERED: EPINEPHrine 1:1,000 4,000 MCG in DEXTROSE 5%-WATER - 996 ML IV SCH (04:45)
[2021-08-28] MEDS: BANATROL PLUS POWDER PACKET GT SCH (05:50)
[2021-08-28] MEDS: INSULIN SLIDING SCALE (NOVOLOG) 1 VIAL SQ SCH (07:11)
[2021-08-28] MEDS: LEVOTHYROXINE NA 125 MCG TABLET (FP) GT SCH (07:11)
[2021-08-28] MEDS: HYDROCORTISONE SOD SUCCINATE 100 MG/2 ML VIAL IVPUSH SCH (07:11)
[2021-08-28 07:27] VITALS: PULSE 43
[2021-08-28 10:20] VITALS: BP 114/34; TEMP 96.8
== END 2021-08-28 09:50 | disposition expired | DRG 4 ==
LOC: JER 23:17 → JERBED 07-17 04:32 → JICU 07-17 18:48 → J5S 08-22 05:47 → JICU 08-25 04:35
PROVIDERS: ADMIT Hospitalist; ATTEND Family Medicine
PROC: 5A1955Z Respiratory Ventilation, Greater than 96 Consecutive Hours (ICD-10-PCS; 2021-07-17)
PROC: 0BH17EZ Insertion of Endotracheal Airway into Trachea, Via Natural or Artificial Opening (ICD-10-PCS; 2021-07-17)
PROC: 03HB33Z Insertion of Infusion Device into Right Radial Artery, Percutaneous Approach (ICD-10-PCS; 2021-07-17)
PROC: 0W9B30Z Drainage of Left Pleural Cavity with Drainage Device, Percutaneous Approach (ICD-10-PCS; 2021-07-18)
PROC: 0W9B30Z Drainage of Left Pleural Cavity with Drainage Device, Percutaneous Approach (ICD-10-PCS; 2021-07-19)
PROC: 03HC33Z Insertion of Infusion Device into Left Radial Artery, Percutaneous Approach (ICD-10-PCS; 2021-07-20)
PROC: 30233N1 Transfusion of Nonautologous Red Blood Cells into Peripheral Vein, Percutaneous Approach (ICD-10-PCS; 2021-07-23)
PROC: 05HN33Z Insertion of Infusion Device into Left Internal Jugular Vein, Percutaneous Approach (ICD-10-PCS; 2021-07-27)
PROC: B544ZZA Ultrasonography of Left Jugular Veins, Guidance (ICD-10-PCS; 2021-07-27)
PROC: 04HL33Z Insertion of Infusion Device into Left Femoral Artery, Percutaneous Approach (ICD-10-PCS; 2021-08-03)
PROC: 05HM33Z Insertion of Infusion Device into Right Internal Jugular Vein, Percutaneous Approach (ICD-10-PCS; 2021-08-05)
PROC: B543ZZA Ultrasonography of Right Jugular Veins, Guidance (ICD-10-PCS; 2021-08-05)
PROC: 0B113F4 Bypass Trachea to Cutaneous with Tracheostomy Device, Percutaneous Approach (ICD-10-PCS; principal; 2021-08-10)
PROC: 0BJ08ZZ Inspection of Tracheobronchial Tree, Via Natural or Artificial Opening Endoscopic (ICD-10-PCS; 2021-08-10)
PROC: 05HN33Z Insertion of Infusion Device into Left Internal Jugular Vein, Percutaneous Approach (ICD-10-PCS; 2021-08-17)
PROC: 0DH63UZ Insertion of Feeding Device into Stomach, Percutaneous Approach (ICD-10-PCS; 2021-08-17)
PROC: BD12YZZ Fluoroscopy of Stomach using Other Contrast (ICD-10-PCS; 2021-08-17)
PROC: 05HM33Z Insertion of Infusion Device into Right Internal Jugular Vein, Percutaneous Approach (ICD-10-PCS; 2021-08-25)
PROC: B543ZZA Ultrasonography of Right Jugular Veins, Guidance (ICD-10-PCS; 2021-08-25)
PROC: B544ZZA Ultrasonography of Left Jugular Veins, Guidance (ICD-10-PCS; 2021-08-27)
PROC: 5A12012 Performance of Cardiac Output, Single, Manual (ICD-10-PCS; 2021-08-28)
DX: U07.1 COVID-19 (principal); J93.0 Spontaneous tension pneumothorax; J12.82 Pneumonia due to coronavirus disease 2019; J80 Acute respiratory distress syndrome; B19.10 Unspecified viral hepatitis B without hepatic coma; N17.9 Acute kidney failure, unspecified; G95.9 Disease of spinal cord, unspecified; R57.9 Shock, unspecified; R78.81 Bacteremia; E87.2 Acidosis; Z68.1 Body mass index [BMI] 19.9 or less, adult; J98.11 Atelectasis; I47.1 Supraventricular tachycardia; I31.3 Pericardial effusion (noninflammatory); E87.1 Hypo-osmolality and hyponatremia; J95.851 Ventilator associated pneumonia; J93.9 Pneumothorax, unspecified; J90 Pleural effusion, not elsewhere classified; I46.9 Cardiac arrest, cause unspecified; R57.1 Hypovolemic shock; M06.9 Rheumatoid arthritis, unspecified; E03.9 Hypothyroidism, unspecified; I11.0 Hypertensive heart disease with heart failure; J45.909 Unspecified asthma, uncomplicated; E11.9 Type 2 diabetes mellitus without complications; D64.9 Anemia, unspecified; K76.0 Fatty (change of) liver, not elsewhere classified; E78.5 Hyperlipidemia, unspecified; D69.6 Thrombocytopenia, unspecified; D72.829 Elevated white blood cell count, unspecified; I50.9 Heart failure, unspecified; E87.5 Hyperkalemia; I95.9 Hypotension, unspecified; K21.9 Gastro-esophageal reflux disease without esophagitis
CPT/HCPCS: 36415; 36430; 36511; 36600; 49440; 71045-TC-FY; 71275-TC; 74018-TC-FY; 80048; 80053; 81003; 82248; 82271; 82272; 82550; 82728; 82803; 82947; 82962; 83036; 83605; 83615; 83735; 84100; 84484; 85025; 85027; 85379; 85610; 85730; 86140; 86850; 86900; 86901; 86922; 87040; 87045; 87046; 87070; 87075; 87086; 87177; 87186; 87205; 87209; 87324; 87449; 87804; 87807; 93005; 93010; 93306-TC; 94002; 94660; 97162-GP; 99285-25; C9803; G0480; J0282; J1100; J1644; J3490; J7517; P9038; P9047; P9058; U0003; U0005